=== PATIENT | male | born 1935 | race Caucasian/White ===

== ENCOUNTER → 2016-11-05 | Outpatient (CLI) | payer OTHER ==
[~2016-11-05] MED LIST: CRG625 PO; LPT40 PO; LSN25 PO; MECL1TAB40 PO; PRLSR20 PO; XRL10 PO
[2016-11-05 16:36] LABS: INR 2.5 (0.9-1.1); PROTHROMBIN TIME (PATIENT) 27.7 SECONDS (9.0-12.0)
== END | disposition home or self-care (01) ==
LOC: C.LABSPEC 15:55
PROVIDERS: ATTEND Internal Medicine
DX: I48.91 Unspecified atrial fibrillation (principal); Z79.01 Long term (current) use of anticoagulants

== ENCOUNTER → 2016-12-11 | Outpatient (CLI) | payer OTHER ==
[2016-12-11 15:22] LABS: INR 2.6 (0.9-1.1); PROTHROMBIN TIME (PATIENT) 28.5 SECONDS (9.0-12.0)
== END | disposition home or self-care (01) ==
LOC: C.LABSPEC 14:53
PROVIDERS: ATTEND Internal Medicine
DX: I48.91 Unspecified atrial fibrillation (principal); Z79.01 Long term (current) use of anticoagulants; Z51.81 Encounter for therapeutic drug level monitoring

== ENCOUNTER → 2017-01-12 | Outpatient (CLI) | payer OTHER ==
[2017-01-12 16:14] LABS: INR 1.9 (0.9-1.1)
== END | disposition home or self-care (01) ==
LOC: C.LABSPEC 14:47
PROVIDERS: ATTEND Internal Medicine
DX: Z79.01 Long term (current) use of anticoagulants (principal); I48.91 Unspecified atrial fibrillation

== ENCOUNTER → 2017-02-16 | Outpatient (CLI) | payer OTHER ==
[2017-02-16 12:47] LABS: INR 2.2 (0.9-1.1); PROTHROMBIN TIME (PATIENT) 24.3 SECONDS (9.0-12.0)
== END | disposition home or self-care (01) ==
LOC: C.LABSPEC 12:04
PROVIDERS: ATTEND Internal Medicine
DX: I48.91 Unspecified atrial fibrillation (principal); Z79.01 Long term (current) use of anticoagulants

== ENCOUNTER → 2017-03-25 | Outpatient (CLI) | payer OTHER ==
[2017-03-25 13:43] LABS: INR 2.1 (0.9-1.1); PROTHROMBIN TIME (PATIENT) 23.5 SECONDS (9.0-12.0)
== END | disposition home or self-care (01) ==
LOC: C.LABSPEC 12:17
PROVIDERS: ATTEND Internal Medicine
DX: I48.91 Unspecified atrial fibrillation (principal); Z79.01 Long term (current) use of anticoagulants

== ENCOUNTER → 2017-03-27 | Outpatient (CLI) | payer OTHER ==
[~2017-03-27] MED LIST changes: +REGADENOSON 0.4 MG/5 ML SYR ONE
--- NOTE | 2017-03-28 01:04 | MYOCARDIAL PERFUSION SCAN ---
ONE-DAY NUCLEAR MEDICINE TECHNETIUM-99M CARDIOLITE MYOCARDIAL PERFUSION SCAN CLINICAL HISTORY: This stress test is being performed because of an exertional chest pain syndrome with dyspnea. The patient has a baseline left bundle branch block. COMPARISON: None. TECHNIQUE: For the stress portion of the study, 32.7 mCi of Technetium 99 m Cardiolite IV was injected at 1:20 pm on 03/27/2017. 30 minutes following the injection, imaging of the heart was performed in multiple projection. For the rest portion of the study, 10 mCi of Technetium 99 m Cardiolite was injected IV at 11:45 am. One hour following the injection, imaging of the heart was performed in the same projections. For the stress portion of the study, 0.4 mg of Lexiscan was injected intravenously as per protocol. The patient did not experience chest pain or shortness of breath. There were no EKG changes. Following the study, the patient was hemodynamically stable without complaints. FINDINGS: The short axis, vertical long axis, and horizontal long axis images were reviewed in detail. There is a small defect noted in the proximal, mid inferior wall present at both stress and rest. However, this area demonstrates normal systolic function with the gated images, and the rotating images suggest diaphragmatic attenuation. There is no evidence of myocardial ischemia. The left ventricle demonstrates normal systolic function without segmental wall motion abnormalities. An estimated left ventricular ejection fraction is 64%. CONCLUSIONS: 1. No scintigraphic evidence of a prior myocardial infarction or stress-induced myocardial ischemia. 2. No Lexiscan-induced chest pain. 3. No Lexiscan-induced EKG warp changer the baseline abnormality. 4. Normal left ventricular systolic function without segmental wall motion abnormalities. An estimated left ventricular ejection fraction is 64%.
== END | disposition home or self-care (01) ==
LOC: C.NUCL 10:49
PROVIDERS: ATTEND Internal Medicine
DX: R07.9 Chest pain, unspecified (principal); R06.00 Dyspnea, unspecified

== ENCOUNTER → 2017-05-14 | Outpatient (CLI) | payer OTHER ==
[~2017-05-14] MED LIST changes: -REGADENOSON 0.4 MG/5 ML SYR ONE
[2017-05-14 12:27] LABS: INR 1.8 (0.9-1.1); PROTHROMBIN TIME (PATIENT) 19.2 SECONDS (9.0-12.0)
== END ==
LOC: C.LABSPEC 12:02
PROVIDERS: ATTEND Internal Medicine
DX: I48.91 Unspecified atrial fibrillation (principal); Z79.01 Long term (current) use of anticoagulants; N39.0 Urinary tract infection, site not specified

== ENCOUNTER → 2017-06-08 | Outpatient (CLI) | payer OTHER ==
[2017-06-08 12:54] LABS: INR 2.6 (0.9-1.1); PROTHROMBIN TIME (PATIENT) 28.5 SECONDS (9.0-12.0)
== END | disposition home or self-care (01) ==
LOC: C.LABSPEC 12:09
PROVIDERS: ATTEND Internal Medicine
DX: I48.91 Unspecified atrial fibrillation (principal); Z79.01 Long term (current) use of anticoagulants

== ENCOUNTER → 2017-07-02 | Outpatient (CLI) | payer OTHER ==
[2017-07-02 13:41] LABS: INR 2.1 (0.9-1.1); PROTHROMBIN TIME (PATIENT) 23.7 SECONDS (9.0-12.0)
== END | disposition home or self-care (01) ==
LOC: C.LABSPEC 12:49
PROVIDERS: ATTEND Internal Medicine
DX: I48.91 Unspecified atrial fibrillation (principal); Z51.81 Encounter for therapeutic drug level monitoring; Z79.01 Long term (current) use of anticoagulants

== ENCOUNTER → 2017-07-21 | Outpatient (CLI) | payer OTHER | END | disposition home or self-care (01) | LOC: C.PATHSPEC 13:15 | PROVIDERS: ATTEND Internal Medicine | DX: C44.521 Squamous cell carcinoma of skin of breast (principal) ==

== ENCOUNTER → 2017-07-31 | Outpatient (CLI) | payer OTHER ==
[2017-07-31 14:08] LABS: INR 1.9 (0.9-1.1); PROTHROMBIN TIME (PATIENT) 20.5 SECONDS (9.0-12.0)
== END | disposition home or self-care (01) ==
LOC: C.LABSPEC 12:52
PROVIDERS: ATTEND Internal Medicine
DX: I48.91 Unspecified atrial fibrillation (principal)

== ENCOUNTER → 2017-08-17 | Outpatient (CLI) | payer OTHER ==
[2017-08-17 16:13] LABS: INR 1.7 (0.9-1.1); PROTHROMBIN TIME (PATIENT) 19.1 SECONDS (9.0-12.0)
== END | disposition home or self-care (01) ==
LOC: C.LABSPEC 15:38
PROVIDERS: ATTEND Internal Medicine
DX: Z51.81 Encounter for therapeutic drug level monitoring (principal); Z79.01 Long term (current) use of anticoagulants; I48.91 Unspecified atrial fibrillation

== ENCOUNTER → 2017-09-02 | Outpatient (CLI) | payer OTHER ==
[2017-09-02 13:13] LABS: INR 3.5 (0.9-1.1); PROTHROMBIN TIME (PATIENT) 39.6 SECONDS (9.0-12.0)
== END | disposition home or self-care (01) ==
LOC: C.LABSPEC 12:15
PROVIDERS: ATTEND Internal Medicine
DX: Z51.81 Encounter for therapeutic drug level monitoring (principal); Z79.01 Long term (current) use of anticoagulants; I48.91 Unspecified atrial fibrillation

== ENCOUNTER → 2017-09-16 | Outpatient (CLI) | payer OTHER ==
[2017-09-16 13:32] LABS: INR 2.9 (0.9-1.1); PROTHROMBIN TIME (PATIENT) 32.7 SECONDS (9.0-12.0)
== END | disposition home or self-care (01) ==
LOC: C.LABSPEC 12:41
PROVIDERS: ATTEND Internal Medicine
DX: I48.91 Unspecified atrial fibrillation (principal); Z79.01 Long term (current) use of anticoagulants

== ENCOUNTER → 2017-11-03 | Outpatient (CLI) | payer OTHER ==
[2017-11-03 14:09] LABS: INR 3.8 (0.9-1.1)
== END | disposition home or self-care (01) ==
LOC: C.LABSPEC 12:33
PROVIDERS: ATTEND Internal Medicine
DX: I48.91 Unspecified atrial fibrillation (principal); Z51.81 Encounter for therapeutic drug level monitoring; Z79.01 Long term (current) use of anticoagulants

== ENCOUNTER → 2017-11-13 | Outpatient (CLI) | payer OTHER ==
[2017-11-13 15:16] LABS: INR 2.6 (0.9-1.1)
== END | disposition home or self-care (01) ==
LOC: C.LABSPEC 14:39
PROVIDERS: ATTEND Internal Medicine
DX: I48.91 Unspecified atrial fibrillation (principal); Z51.81 Encounter for therapeutic drug level monitoring; Z79.01 Long term (current) use of anticoagulants

== ENCOUNTER → 2017-12-14 | Outpatient (CLI) | payer OTHER ==
[2017-12-14 14:06] LABS: INR 1.9 (0.9-1.1)
== END | disposition home or self-care (01) ==
LOC: C.LABSPEC 12:51
PROVIDERS: ATTEND Internal Medicine
DX: I48.91 Unspecified atrial fibrillation (principal); Z51.81 Encounter for therapeutic drug level monitoring; Z79.01 Long term (current) use of anticoagulants

== ENCOUNTER → 2018-01-12 | Outpatient (CLI) | payer OTHER ==
[2018-01-12 13:47] LABS: INR 2.6 (0.9-1.1)
[2018-01-12 14:45] LABS: BLOOD UREA NITROGEN 25 mg/dl (7-18); CREATININE 1.25 mg/dl (0.60-1.40); GLUCOSE 100 mg/dl (70-99)
[2018-01-12 14:46] LABS: ALT/SGPT 23 U/L (12-78); CALCIUM 8.6 mg/dl (8.5-10.1); CARBON DIOXIDE 26 mmol/L (21-32); POTASSIUM 3.9 mmol/L (3.5-5.1); SODIUM 136 mmol/L (136-145)
[2018-01-12 14:48] LABS: ALKALINE PHOSPHATASE 82 U/L (45-117); AST/SGOT 18 U/L (15-37); TOTAL PROTEIN 7.4 gm/dl (6.4-8.2)
== END | disposition home or self-care (01) ==
LOC: C.LABSPEC 12:41
PROVIDERS: ATTEND Internal Medicine
DX: Z51.81 Encounter for therapeutic drug level monitoring (principal); Z79.01 Long term (current) use of anticoagulants; I48.91 Unspecified atrial fibrillation

== ENCOUNTER → 2018-02-03 | Outpatient (CLI) | payer OTHER ==
[2018-02-03 17:22] LABS: INR 2.3 (0.9-1.1)
== END | disposition home or self-care (01) ==
LOC: C.LABSPEC 16:29
PROVIDERS: ATTEND Internal Medicine
DX: Z51.81 Encounter for therapeutic drug level monitoring (principal); I48.91 Unspecified atrial fibrillation; Z79.01 Long term (current) use of anticoagulants

== ENCOUNTER → 2018-03-15 | Outpatient (CLI) | payer OTHER ==
[2018-03-15 14:59] LABS: INR 3.3 (0.9-1.1)
== END | disposition home or self-care (01) ==
LOC: C.LABSPEC 13:35
PROVIDERS: ATTEND Internal Medicine
DX: I48.91 Unspecified atrial fibrillation (principal); Z79.01 Long term (current) use of anticoagulants

== ENCOUNTER 2018-03-18 19:32 | Emergency (ER) | payer OTHER ==
[~2018-03-18] VITALS: Ht 170.2 cm; Wt 73.4 kg
[2018-03-18 19:37] VITALS: TEMP 36.8; Ht 170.2 cm; Wt 73.4 kg
[2018-03-18] MEDS ORDERED: LIDOCAINE/EPINEPHRINE 1% 20 ML VIAL INFIL STA (19:45)
--- NOTE | 2018-03-18 20:23 | EMERGENCY ROOM VISIT NOTE ---
ED Visit Note First contact with patient: 19:40 I have seen and examined this patient with Ajit Mcnamara and generally agree with the treatment plan as discussed. Problem List Medical Problems: (1) Heart murmur Status: Chronic (2) History of echocardiogram Status: Chronic (3) Low-grade follicular lymphoma Status: Chronic (4) Sleep apnea Status: Chronic (5) Vertigo Status: Chronic Surgical Problems: (1) History of cholecystectomy Status: Resolved (2) History of shoulder surgery Status: Resolved Current/Historical Medications Scheduled Atorvastatin (Atorvastatin Calcium), 40 MG PO QAM Carvedilol (Carvedilol), 6.25 MG PO BID Lisinopril (Lisinopril), 2.5 MG PO QAM Omeprazole (Prilosec), 20 MG PO DAILY Rivaroxaban (Xarelto), 20 MG PO DAILYBD Scheduled PRN Meclizine Hcl (Meclizine Hcl), 12.5 MG PO TID PRN for DIZZINESS Allergies Coded Allergies: Codeine (Verified Allergy, Unknown, UNKNOWN, 04/07/14) Vital Signs Date Time Temp Pulse Resp B/P (MAP) Pulse Ox O2 Delivery O2 Flow Rate FiO2 03/18/18 19:37 36.8 81 18 133/86 97 Room Air Departure Information Referrals Jose C Del Rosario M.D. (PCP) Patient Instructions My [facility]
--- NOTE | 2018-03-18 20:29 | DIAGNOSTIC IMAGING REPORT ---
HEAD CT NONCONTRAST CT DOSE: 614.27 mGy.cm HISTORY: Head injury, scalp laceration, anticoagulated TECHNIQUE: Multiaxial CT images of the head were performed without the use of intravenous contrast. Automated exposure control was utilized for this study. A dose lowering technique was utilized adhering to the principles of ALARA. Comparison: Head CT 10/03/2013. Findings: The paranasal sinuses and mastoid air cells are clear. The calvarium and skull base are intact. There is no mass, hematoma, midline shift, acute infarct. White matter hypodensity is nonspecific but suggestive of microvascular ischemic change. The ventricles and sulci demonstrate mild age-related involutional changes. Impression: No acute intracranial abnormality. Electronically signed by: Jac Tena M.D. 03/18/2018 8:28 PM Dictated Date/Time: 03/18/2018 8:23 PM
[2018-03-18] MEDS ORDERED: LISI-729 PO (20:41)
[2018-03-18] MEDS ORDERED: CMD4 PO (20:41)
[2018-03-18] MEDS ORDERED: TAMS0.4C38 PO (20:41)
--- NOTE | 2018-03-18 21:02 | EMERGENCY ROOM VISIT NOTE ---
ED Visit Note First contact with patient: 19:40 Chief Complaint: "Gash and head". History of Present Illness: This patient is a 82-year-old male who presents to the Emergency Department for evaluation of their scalp laceration. Patient sustained the laceration while riding a lawnmower going around the house noting a snake was on the house. They report a moderate amount of bleeding initially. They report no loss of consciousness. They deny any headache, visual disturbance , nausea, vomiting, or neck pain. Patient rates his current discomfort as a 2/ 10. Patient's Tetanus status is believed to be currently up-to-date. Medications: As noted below Allergies: Codeine PMH: Noncontributory SHx: Patient lives locally ROS: All pertinent positive and negative review of systems are appropriately documented in the History of Present Illness. Physical Exam: VITAL SIGNS - Vital signs and nursing notes were reviewed. Stable GENERAL -82-year-old male appearing his stated age. Communicates well with provider and answers questions appropriately. SKIN - There is a 4 cm laceration noted superiormost portion of the patient's scalp with an area of skin avulsion. The edges gape apart with traction and without traction. There is minimal active bleeding appreciated. No deep structures including vessels, musculature, or bony structures are appreciated. HEAD - Normocephalic. No Botello's Sign or Raccoon's Eyes. No depressed skull fractures palpable. EYES - PERRL with EOMI bilaterally. Without subconjunctival hemorrhage. Palpebral conjunctiva pink and moist with no injection. EARS - No deformities of external structures noted on gross examination bilaterally. No hemotympanum present. No tympanic perforation noted. NOSE - Midline and without cyanosis. No epistaxis or clear watery discharge noted. Septum midline without deviation. No septal hematoma noted. No overlying ecchymosis noted. MOUTH/OROPHARYNX - Without perioral cyanosis. Tongue midline with equal elevation of palate bilaterally. No blood noted in the oropharynx. No tonsillar hypertrophy, erythema, or exudates noted. No dental fractures noted. NECK - FROM assessed. No tenderness to palpation over the cervical spinous processes. No cervical paraspinal muscle tenderness noted. LUNGS - Chest wall symmetric without accessory muscle use, intercostals retractions, or central cyanosis. Normal vesicular breath sounds CTA B/L. No wheezes, rales, or rhonchi appreciated. CARDIAC - RRR with S1/S2. No murmur, rubs, or gallops appreciated. EXTREMITIES - No gross deformities noted of the extremities.+5/5 strength noted in UE/LE bilaterally. NEUROLOGIC - Cranial nerves II through XII grossly intact. Sensory intact to light touch throughout. PSYCH - A&O and cooperates fully with examiner. Pt is very pleasant and interacts well with examiner. IMAGING: HEAD CT NONCONTRAST CT DOSE: 614.27 mGy.cm HISTORY: Head injury, scalp laceration, anticoagulated TECHNIQUE: Multiaxial CT images of the head were performed without the use of intravenous contrast. Automated exposure control was utilized for this study. A dose lowering technique was utilized adhering to the principles of ALARA. Comparison: Head CT 10/03/2013. Findings: The paranasal sinuses and mastoid air cells are clear. The calvarium and skull base are intact. There is no mass, hematoma, midline shift, acute infarct. White matter hypodensity is nonspecific but suggestive of microvascular ischemic change. The ventricles and sulci demonstrate mild age-related involutional changes. Impression: No acute intracranial abnormality. Electronically signed by: Jac Tena M.D. 03/18/2018 8:28 PM Dictated Date/Time: 03/18/2018 8:23 PM ED Course: Patient was seen and evaluated by myself and the attending physician. Patient had no focal neurological deficits. Patient's exam is otherwise unremarkable. Patient reports no headaches, visual disturbances, nausea, vomiting, or over- lethargy. Because of his anticoagulated state, and mechanism of injury I will recommend CT scan of the patient's head. Results as above. This was negative. GCS 15. Risks and benefits of performing primary wound closure versus no repair were discussed with the patient who verbalizes understanding. Verbal consent was obtained prior to performing the procedure. 3 cc of 1% buffered lidocaine with epinephrine was used to anesthetize the scalp laceration. The wound was cleansed and prepped in the typical sterile fashion utilizing normal saline and Betadine. The wound was sterilely draped. Once proper anesthetization was established, the wound was further examined and demonstrated no deep involvement. The wound was copiously irrigated with normal saline and Betadine. The wound was closed using 5 simple, 5-0 sutures with the wound edges being well approximated at the anterior most portion of the wound however there was still a gaping wound at the inferior portion secondary to loss of skin with the injury. Patient tolerated the procedure well. No complications were met. The wound was cleansed and dressed with a Bacitracin dressing. Patient educated on worrisome symptoms for return visit to the Emergency Department. Patient discharged to home in good condition. In the evaluation and treatment of this patient, the following differential diagnoses were considered: Concussion, Contrecoup Injury, Brain Tumor, Depression, Encephalitis, Hypothyroidism, Meningitis, CVA, TIA, Migraine, Cluster Headache, Intracranial Abnormality, Intracranial Hemorrhage, Subdural Hematoma, Subarachnoid Hemorrhage, Hydrocephalus. Problem List Medical Problems: (1) Heart murmur Status: Chronic (2) History of echocardiogram Status: Chronic (3) Low-grade follicular lymphoma Status: Chronic (4) Sleep apnea Status: Chronic (5) Vertigo Status: Chronic Surgical Problems: (1) History of cholecystectomy Status: Resolved (2) History of shoulder surgery Status: Resolved Current/Historical Medications Scheduled Lisinopril (Zestril), 5 MG PO DAILY Omeprazole (Prilosec), 20 MG PO DAILY Tamsulosin Hcl (Flomax), 0.4 MG PO DAILY Warfarin Sod (Coumadin), 4 MG PO DAILY Allergies Coded Allergies: Codeine (Verified Allergy, Unknown, UNKNOWN, 03/18/18) Vital Signs Date Time Temp Pulse Resp B/P (MAP) Pulse Ox O2 Delivery O2 Flow Rate FiO2 03/18/18 21:22 71 131/81 97 03/18/18 19:37 36.8 81 18 133/86 97 Room Air Departure Information Impression Primary Impression: Laceration Dispostion Home / Self-Care Condition GOOD Referrals Jose C Del Rosario M.D. (PCP) Patient Instructions My [facility] Additional Instructions Discharge Instructions: You have received 5 sutures on your scalp. These sutures are NOT dissolvable and WILL need to be removed by a health care provider in 10 days. You can return to the Emergency Department or contact your Primary Care Provider to have these simin removed. Proper wound care is essential for adequate wound healing and infection prevention. You can shower and clean the wound with soap and water. Do scour over the wound, pat dry with a towel. Do not submerse the wound until the simin have been removed. You can use an antibiotic ointment with a dressing over the wound for the next 3-4 days. After this time you may leave the wound dry and open to the air. If crust develops over the wound you can use a Q-tip to apply a 1:1 peroxide:water solution to clean the wound. Look for signs of infection of the wound including: increased pain, swelling, foul discharge, streaking, or increased temperature. If any of these are noticed you should return to the Emergency Department for further assessment and treatment. As with any laceration you may have received nerve damage to the surrounding tissues. This damage may or may not be permanent. For pain control, you can use the following [id number] medicines (if >12 yo): - Regular strength (325mg/tab) Tylenol (acetaminophen) 2 tabs every 4-6 hours as needed. Do not exceed 12 tablets in a 24 hour period. Avoid taking more than 3 grams (3000 mg) of Tylenol per day. This includes any other sources of acetaminophen you may take on a regular basis. - Regular strength (200 mg/tab) Advil (ibuprofen) 1-2 tabs every 4-6 hours as needed. Do not exceed a dose of 3200 mg per day. Return to the emergency department if your symptoms worsen despite treatment course outlined above.
[2018-03-18 21:22] VITALS: BP 131/81; PULSE 71; O2SAT 97
== END 2018-03-18 21:21 | disposition home or self-care (01) ==
LOC: C.EDB 19:33 → C.EDD 21:21
DX: S01.01XA Laceration without foreign body of scalp, initial encounter (principal); X58.XXXA Exposure to other specified factors, initial encounter; Y93.H9 Activity, other involving exterior property and land maintenance, building and construction; Z79.02 Long term (current) use of antithrombotics/antiplatelets; Z88.6 Allergy status to analgesic agent

== ENCOUNTER → 2018-06-15 | Outpatient (CLI) | payer OTHER ==
[~2018-06-15] MED LIST changes: +CMD4 PO; -CRG625 PO; +LISI-729 PO; -LPT40 PO; -LSN25 PO; -MECL1TAB40 PO; +TAMS0.4C38 PO; -XRL10 PO
[2018-06-15 18:45] LABS: INR 2.6 (0.9-1.1)
== END | disposition home or self-care (01) ==
LOC: C.LABSPEC 17:47
PROVIDERS: ATTEND Internal Medicine
DX: I48.91 Unspecified atrial fibrillation (principal); Z79.01 Long term (current) use of anticoagulants

== ENCOUNTER 2019-06-03 15:58 | Inpatient (IN) ==
[2019-06-03] MEDS ORDERED: SODIUM CHLORIDE 0.9% 1000ML 1,000 ML IV ONE (17:11)
[2019-06-03] MEDS ORDERED: LEVOFLOXACIN/D5W 750 MG/150 ML BAG IV STA (17:31)
--- NOTE | 2019-06-03 17:59 | XRay Report ---
SINGLE VIEW CHEST CLINICAL HISTORY: Atypical chest pain. FINDINGS: An AP, portable, upright chest radiograph is compared to study dated 04/07/2014 and correlat ed with PET/CT dated 03/03/2016. The examination is degraded by portable technique and apical lordotic positioning. The heart is enlarged and there is atherosclerotic calcification of the thoracic aorta. The pulmonary vasculature is noncongested. There is bibasilar airspace consolidation, right greater than left. Small layering pleural effusions are noted. No pneumothorax is seen. The skeletal structur es are osteopenic. The bony thorax is grossly intact. Degenerative change is seen throughout the thor acic spine. IMPRESSION: 1. Cardiomegaly without radiographic evidence of congestive failure. 2. There is bibasilar airspace consolidation, typical in appearance for pneumonia/aspiration pneumoni tis. Clinical correlation will be required and radiographic follow-up to resolution is recommended. 3. There are small pleural effusions. Electronically signed by: Reza Sotelo M.D. 06/03/2019 5:58 PM
[2019-06-03 18:14] LABS: Basophils # (auto) 0.01 K/uL (0-0.2); Basophils % (auto) 0.1 %; Eosinophils # (auto) 0.02 K/uL (0-0.5); Eosinophils % (auto) 0.2 %; Hematocrit (blood only) 34.4 % (42-52); Hemoglobin 11.9 g/dL (14.0-18.0); Immature Granulocytes # (auto) 0.03 K/uL (0.00-0.02); Immature Granulocytes % (auto) 0.4 %; Lymphocytes # (auto) 0.58 K/uL (1.2-3.4); Lymphocytes % (auto) 6.8 %; Mean Corpuscular Hemoglobin 29.2 pg (25-34); Mean Corpuscular Hgb Conc 34.6 g/dL (32-36); Mean Corpuscular Volume 84.5 fL (80-100); Mean Platelet Volume 9.3 fL (7.4-10.4); Monocytes # (auto) 0.61 K/uL (0.11-0.59); Monocytes % (auto) 7.2 %; Neutrophils # (auto) 7.28 K/uL (1.4-6.5); Neutrophils % (auto) 85.3 %; Platelet Count 274 K/uL (130-400); RDW Coefficient of Variation 12.7 % (11.5-14.5); RDW Standard Deviation 39.1 fL (36.4-46.3); Red Blood Count 4.07 M/uL (4.7-6.1); White Blood Count 8.53 K/uL (4.8-10.8)
[2019-06-03 18:34] LABS: Alanine Aminotransferase 48 U/L (12-78); Albumin Level 2.3 gm/dl (3.4-5.0); Aspartate Aminotransferase 36 U/L (15-37); BUN Creatinine Ratio 21.5 (10-20); Blood Urea Nitrogen 23 mg/dl (7-18); Calcium 7.5 mg/dl (8.5-10.1); Carbon Dioxide 22 mmol/L (21-32); Chloride 111 mmol/L (98-107); Creatinine Clr Calc Pharmacy 48.9 ml/min; Est GFR (African American) 72.9; Est GFR (Non-African American) 62.9; Glucose 108 mg/dl (70-99); Lipase 54 U/L (73-393); Potassium 4.4 mmol/L (3.5-5.1); Sodium 140 mmol/L (136-145)
[2019-06-03 18:39] LABS: Albumin Globulin Ratio 0.7 (0.9-2); Alkaline Phosphatase 83 U/L (45-117); Bilirubin,Total 1.1 mg/dl (0.2-1); Globulin 3.5 gm/dl (2.5-4.0); Total Protein 5.8 gm/dl (6.4-8.2); Troponin I < 0.015 ng/ml (0-0.045)
[2019-06-03] MEDS ORDERED: ACETAMINOPHEN 325 MG TAB PO PRN (20:39)
[2019-06-03] MEDS ORDERED: ALUMINUM/MAGNESIUM SUSP 30 ML UDC PO PRN (20:39)
[2019-06-03] MEDS ORDERED: WARFARIN SOD 4 MG TAB PO SCH (20:39)
[2019-06-03] MEDS ORDERED: MAGNESIUM HYDROXIDE SUSP 30 ML UDC PO PRN (20:39)
[2019-06-03] MEDS ORDERED: NITROGLYCERIN SL 0.4 MG/TAB TAB SL PRN (20:39)
[2019-06-03] MEDS ORDERED: POLYETHYLENE (MIRALAX) 17 GM PACK PO PRN (20:39)
[2019-06-03] MEDS ORDERED: ZOLPIDEM TARTRATE 5 MG TAB PO PRN (20:39)
[2019-06-03] MEDS: SODIUM CHLORIDE 0.9% 1000ML 1,000 ML IV SCH (21:42)
--- NOTE | 2019-06-03 21:59 | Emergency Department Note ---
Entered by Huma Fregoso acting as a scribe for Gerald Silva DO History of Present Illness General Chief complaint: Weakness Source: patient History of Present Illness Onset (ago): week(s) 2 Location: chest (shortness of breath) Pain Consistency: + other (worsening) Exacerbated By: + other (mowing lawn) Associated symptoms: + denies other symptoms (neck pain), + cough (mild), + loss of appetite, + weakness and + other (abdominal discomfort); no headaches The patient is a 83 year-old white M w/ PMHx of A Fib who presents to the ED w/ CC of worsening shortness of breath beginning 2 weeks ago. The patient states that he was mowing his lawn today. He notes that this caused him to experience worsened shortness of breath and weakness. The patients states that she found the patient passed out on the ground. EMS adds that the patient had a second episode of syncope when they arrived at the scene. The patient notes that he has also been experiencing mild coughing and abdominal discomfort since 2 weeks ago. He states that his weakness is no worse on one side of his body. He adds that he has also experienced a loss of appetite for the past two weeks. He denies that he is currently experiencing headache and neck pain. He also denies a history of smoking. Home Medications Home Medications Medication Instructions Recorded Confirmed Type diltiazem HCl 240 mg PO DAILY 06/03/19 06/03/19 History levofloxacin 500 mg PO DAILY 06/03/19 06/03/19 History lisinopril 5 mg PO DAILY 06/03/19 06/03/19 History omeprazole 20 mg PO DAILY 06/03/19 06/03/19 History tamsulosin 0.4 mg PO DAILY 06/03/19 06/03/19 History warfarin 4 mg PO UD 06/03/19 06/03/19 History Allergies Allergy/AdvReac Type Severity Reaction Status Date / Time codeine Allergy Unknown UNKNOWN Verified 06/03/19 17:36 Past Med/Surg History Medical History Vertigo (Chronic) Sleep apnea (Chronic) History of echocardiogram (Chronic) Heart murmur (Chronic) Family History Other No significant family history Social History Feels Safe at Home: Yes Smoking Status: Never smoker Review of Systems See HPI for pertinent positives & negatives. and A total of 10 systems reviewed and were otherwise negative Physical Exam Vital Signs Vital Signs - 24 hr 06/03/19 16:03 06/03/19 16:08 06/03/19 16:14 Temperature 36.5 C Temperature Source Oral Sepsis Recent Fever Within 48 Hours No Sepsis Action Taken by Nursing No Action Required Pulse Rate 72 75 70 Pulse Rate from SpO2 Sensor 72 70 Pulse Rhythm Regular Pulse Strength Normal Respiratory Rate 31 H 20 31 H Respiratory Depth Normal Blood Pressure 121/60 121/60 Blood Pressure Mean 80 80 Blood Pressure Position Lying Pulse Oximetry 93 94 93 Oxygen Delivery Method Nasal Cannula Oxygen Flow Rate 4 06/03/19 16:30 06/03/19 17:00 06/03/19 17:28 Temperature Temperature Source Sepsis Recent Fever Within 48 Hours Sepsis Action Taken by Nursing Pulse Rate 68 69 Pulse Rate from SpO2 Sensor 68 70 Pulse Rhythm Pulse Strength Respiratory Rate 31 H 28 H Respiratory Depth Blood Pressure Blood Pressure Mean Blood Pressure Position Pulse Oximetry 93 93 92 Oxygen Delivery Method Nasal Cannula Oxygen Flow Rate 06/03/19 17:30 06/03/19 17:32 06/03/19 18:00 Temperature Temperature Source Sepsis Recent Fever Within 48 Hours Sepsis Action Taken by Nursing Pulse Rate 71 72 75 Pulse Rate from SpO2 Sensor 71 71 75 Pulse Rhythm Pulse Strength Respiratory Rate 32 H 35 H 27 H Respiratory Depth Blood Pressure 112/64 114/59 L Blood Pressure Mean 80 77 Blood Pressure Position Pulse Oximetry 93 92 93 Oxygen Delivery Method Oxygen Flow Rate 06/03/19 18:30 06/03/19 19:00 06/03/19 19:30 Temperature Temperature Source Sepsis Recent Fever Within 48 Hours Sepsis Action Taken by Nursing Pulse Rate 72 75 73 Pulse Rate from SpO2 Sensor 72 75 73 Pulse Rhythm Pulse Strength Respiratory Rate 30 H 31 H 29 H Respiratory Depth Blood Pressure 103/57 L 113/63 102/60 Blood Pressure Mean 72 79 74 Blood Pressure Position Pulse Oximetry 93 93 93 Oxygen Delivery Method Oxygen Flow Rate GENERAL: Sitting up in bed, alert, slightly ill-appearing, non-toxic EYE EXAM: normal conjunctiva, PERRL and EOM's grossly intact OROPHARYNX: no exudate, no erythema, lips, buccal mucosa, and tongue normal and mucous membranes are moist NECK: supple, no nuchal rigidity, no adenopathy, non-tender LUNGS: Clear to auscultation. Normal chest wall mechanics HEART: no murmurs, S1 normal and S2 normal ABDOMEN: abdomen soft, non-tender, normo-active bowel sounds, no masses, no rebound or guarding. Scar on RUQ. BACK: Back is symmetrical on inspection and there is no deformity, no midline tenderness, no CVA tenderness. SKIN: no rashes and no bruising UPPER EXTREMITIES: upper extremities are grossly normal. LOWER EXTREMITIES: No pitting edema. Claves equal bilaterally. NEURO EXAM: Normal sensorium, cranial nerves II-XII grossly intact, normal speech, no gross weakness of arms, no gross weakness of legs. Course ED COURSE: Vital signs were reviewed and showed normal vitals. The patients medical record was reviewed The above diagnostic studies were performed and reviewed. ED treatments and interventions as stated above. 1706: The patient was evaluated in room C2. A complete history and physical examination was performed. 1847: I reviewed the patient's case with Dr. Sommers, [facility] Hospitalist. He will evaluate the patient for further management. 1850: Upon reevaluation, the patient is not doing any better. I discussed my findings with the patient and he understands and agrees with the treatment plan. Based on the patients age, coexisting illnesses, exam and lab findings the decision to treat as an inpatient was made. The patient remained stable while under my care. The patient will be evaluated for further management. Consultations Consultation #1: I reviewed the patient's case with Dr. Sommers, [facility] Hospitalist. He will evaluate the patient for further management. Time: 18:47 Administered Medications Sodium Chloride (Nss 1000ml) 1,000 mls @ 80 mls/hr IV .[id number] SHARRI Stop: 07/03/19 20:38 Last Admin: 06/03/19 21:42 Dose: 80 mls/hr Documented by: [id number] Discontinued Medications Sodium Chloride (Nss 1000ml) 1,000 mls @ 999 mls/hr IV .[id number] ONE Stop: 06/03/19 18:11 Last Infusion: 06/03/19 19:02 Dose: 0 mls/hr Documented by: [id number] Admin: 06/03/19 17:39 Dose: 999 mls/hr Documented by: [id number] Levofloxacin/Dextrose (Levaquin/D5w) 750 mg in 150 mls @ 100 mls/hr IV Q24H STA Stop: 06/03/19 19:00 Last Infusion: 08/09/19 19:51 Dose: 0 mls/hr Documented by: [id number] Admin: 06/03/19 18:17 Dose: 100 mls/hr Documented by: [id number] Medical Decision Making Differential Diagnosis Differential diagnoses includes but is not limited to pneumonia, bronchitis, COPD/Asthma exacerbation, pneumothorax, pulmonary embolism, congestive heart failure, acute coronary syndrome Medical Records Attestation: I reviewed the patient's medical records. Home Medications Current Medication List: was personally reviewed by me Laboratory Data Attestation: I reviewed the patient's lab results. Result diagrams: 06/03/19 18:01 06/03/19 18:01 Lab Results 06/03/19 06/03/19 Range/Units 18: 18:01 WBC 8.53 (4.8-10.8) K/uL RBC 4.07 L (4.7-6.1) M/uL Hgb 11.9 L (14.0-18.0) g/dL Hct 34.4 L (42-52) % MCV 84.5 (80-100) fL MCH 29.2 (25-34) pg MCHC 34.6 (32-36) g/dL RDW Std Deviation 39.1 (36.4-46.3) fL RDW Coeff of Hermelinda 12.7 (11.5-14.5) % Plt Count 274 (130-400) K/uL MPV 9.3 (7.4-10.4) fL Immature Gran % (Auto) 0.4 % Neut % (Auto) 85.3 % Lymph % (Auto) 6.8 % Sumner % (Auto) 7.2 % Eos % (Auto) 0.2 % Baso % (Auto) 0.1 % Immature Gran # (Auto) 0.03 H (0.00-0.02) K/uL Neut # (Auto) 7.28 H (1.4-6.5) K/uL Lymph # (Auto) 0.58 L (1.2-3.4) K/uL Sumner # (Auto) 0.61 H (0.11-0.59) K/uL Eos # (Auto) 0.02 (0-0.5) K/uL Baso # (Auto) 0.01 (0-0.2) K/uL Sodium 140 (136-145) mmol/L Potassium 4.4 (3.5-5.1) mmol/L Chloride 111 H (98-107) mmol/L Carbon Dioxide 22 (21-32) mmol/L Anion Gap 7.0 (3-11) BUN 23 H (7-18) mg/dl Creatinine 1.09 (0.6-1.4) mg/dl Est Cr Clr Drug Dosing 48.9 ml/min Est GFR ( Amer) 72.9 Est GFR (Non-Af Amer) 62.9 BUN/Creatinine Ratio 21.5 H (10-20) Glucose 108 H (70-99) mg/dl Calcium 7.5 L (8.5-10.1) mg/dl Total Bilirubin 1.1 H (0.2-1) mg/dl AST 36 (15-37) U/L ALT 48 (12-78) U/L Alkaline Phosphatase 83 (45-117) U/L Troponin I < 0.015 (0-0.045) ng/ml Total Protein 5.8 L (6.4-8.2) gm/dl Albumin 2.3 L (3.4-5.0) gm/dl Globulin 3.5 (2.5-4.0) gm/dl Albumin/Globulin Ratio 0.7 L (0.9-2) Lipase 54 L (73-393) U/L Imaging Data Radiologist's Impression: Radiology results as stated below per my review and the radiologist's interpretation: SINGLE VIEW CHEST CLINICAL HISTORY: Atypical chest pain. FINDINGS: An AP, portable, upright chest radiograph is compared to study dated 04/07/2014 and correlated with PET/CT dated 03/03/2016. The examination is degraded by portable technique and apical lordotic positioning. The heart is enlarged and there is atherosclerotic calcification of the thoracic aorta. The pulmonary vasculature is noncongested. There is bibasilar airspace consolidation, right greater than left. Small layering pleural effusions are noted. No pneumothorax is seen. The skeletal structures are osteopenic. The bony thorax is grossly intact. Degenerative change is seen throughout the thoracic spine. IMPRESSION: 1. Cardiomegaly without radiographic evidence of congestive failure. 2. There is bibasilar airspace consolidation, typical in appearance for pneumonia/aspiration pneumonitis. Clinical correlation will be required and radiographic follow-up to resolution is recommended. 3. There are small pleural effusions. Electronically signed by: Reza Sotelo M.D. 06/03/2019 5:58 PM Blood Pressure Blood Pressure Findings: Normal blood pressure Blood Pressure Disposition: did not require urgent referral MDM Narrative Patient is an 83-year-old male with increased shortness of breath which is been going over the past 2 weeks associate with congestion and cough. He had a syncopal episode was brought in by EMS. On arrival he is found to be slightly hypoxic at 88 to 91%. IV was established blood work was obtained and showed no significant leukocytosis and a mild anemia. BMP was unremarkable. Bilirubin was slightly elevated 1.1. Troponin was negative. Lipase was unremarkable. Chest x-ray with bilateral pneumonia. Patient was given IV antibiotics and IV fluids. He was updated bedside. Discussed with the hospitalist and patient was admitted for pneumonia associate with hypoxia. Impression & Plan PNA (pneumonia), Syncope, Hypoxia Discharge Plan Visit Data *Final* Discharge Date/Time: 06/03/19 20:07 Chief Complaint: Weakness ED Provider: Gerald Silva Discharge Problem: PNA (pneumonia), Syncope, Hypoxia Patient Disposition: Admitted As Inpatient Discharge Instructions Interventions: ED Discharge Assessment Last Done: 06/03/19 20:07 Discharge Problem: PNA (pneumonia) Qualifiers: Pneumonia type: due to unspecified organism Laterality: bilateral Lung location: lower lobe of lung Qualified Code(s): J18.1 - Lobar pneumonia, unspecified organism Syncope Qualifiers: Syncope type: unspecified Qualified Code(s): R55 - Syncope and collapse The scribe's documentation has been prepared under my direction and personally reviewed by me in its entirety. I confirm that the note above accurately reflects all work, treatment, procedures, and medical decision making performed by me.
--- NOTE | 2019-06-03 22:03 | History & Physical Report ---
Date of Service June 03, 2019 Assessment & Plan (1) PNA (pneumonia): Admit to inpatient on telemetry -Vital signs every 4 hours -Given Levaquin and ceftriaxone in the ER -Continue ceftriaxone and doxycycline and metronidazole for possible aspiration pneumonia -Patient passed dysphagia screen, but would recommend swallowing study with speech therapy -Duo nebs every 4 hours as needed -Prednisone 40 mg p.o. daily for 5 days -CBC CMP, PT/INR daily -Replenish electrolytes as needed -Patient is on warfarin for A. fib with RVR as well DVT prophylaxis -Full code Present on Admission?: Yes (2) Syncope: Most likely due to dehydration. Patient reports that he did not lose consciousness but feels very tired. Present on Admission?: Yes (3) Hypoxia: Patient has respiratory failure due to most likely aspiration pneumonia -Continue supplemental oxygen as needed and keep oxygenation above 92%. -Continue duo nebs every 4 hours as needed for shortness of breath -Continue prednisone 40 mg p.o. daily for 5 days -Continue antibiotics as above -Follow-up blood cultures -Collect sputum cultures Present on Admission?: Yes (4) Sleep apnea: Patient reports having sleep apnea but he does not use CPAP Present on Admission?: Yes (5) Atrial fibrillation with RVR: Stable, continue diltiazem 240 mg p.o. daily, continue lisinopril 5 mg daily. Continue warfarin 4 mg daily and as directed check PT/INR daily and keep it therapeutic INR between 2 and 3. Present on Admission?: Yes History of Present Illness Chief Complaint: Shortness of breath and cough Primary Care Provider: Jose C Velasco MD Patient is a 83 years old white male with past medical history of A. fib's on warfarin,, sleep apnea, presents to the emergency room with a complaint of shortness of breath and cough started 2 weeks ago. Patient states that he was moving his wound today he noted that this caused him to experience worsening shortness of breath and weakness. Patient says that his appetite is decreased. Patient states that patient was found on the ground and he passed out but did not know how long. EMS states stated the patient had a second episode of syncope when they arrived at the scene. Per patient he is mildly coughing and has abdominal discomfort for approximately 2 weeks weakness is worsening from day today. Patient denies fever chills headache chest pain abdominal pain frequency urgency hemoptysis or hematuria. Patient said that he coughs up approximately little bit of slime and it is yellow. Labs were reviewed and showed viral cell of 8.53 hemoglobin 11.9 hematocrit 34.4 platelets of 274, INR- still pending, sodium 140 potassium 4.4 chloride 111 BUN 23 creatinine 1.09 GFR of 48.9 BUN of 23.3. Chest x-rays showed cardiomegaly without radiographic evidence of congestive heart failure. There is bibasilar a space consolidation, typical in appearance for pneumonia/aspiration showing pneumonitis. There are small pleural effusions. Allergies Allergy/AdvReac Type Severity Reaction Status Date / Time codeine Allergy Unknown UNKNOWN Verified 06/03/19 17:36 Home Medications Home Medications Medication Instructions Recorded Confirmed Type diltiazem HCl 240 mg PO DAILY 06/03/19 06/03/19 History levofloxacin 500 mg PO DAILY 06/03/19 06/03/19 History lisinopril 5 mg PO DAILY 06/03/19 06/03/19 History omeprazole 20 mg PO DAILY 06/03/19 06/03/19 History tamsulosin 0.4 mg PO DAILY 06/03/19 06/03/19 History warfarin 4 mg PO UD 06/03/19 06/03/19 History Past Med/Surg History Medical History Vertigo (Chronic) Sleep apnea (Chronic) History of echocardiogram (Chronic) Heart murmur (Chronic) Family History Other No significant family history Social History Preferred Language: Jordanian Communication Ability: Effective Sports Trainer Required: No Beliefs That Will Affect Care: None Current Living Situation: Spouse Current Living Situation Comment: 's name is Poonam Other Information That Helps Us Care for You: No Feels Safe at Home: Yes Safety Concerns: Feels Safe At This Time Smoking Status: Never smoker Do You Dip or Chew Tobacco: No ; Second Hand Exposure: No ; Tobacco Cessation Education Requested by Patient: No Hx Alcohol Use: No Hx Substance Use: No Review of Systems Review of Systems: All systems reviewed & are unremarkable except as noted in HPI & below Respiratory: + cough, + dyspnea and + wheezing Physical Exam Constitutional: WD/WN, vitals as above well developed and + frail appearing Eyes: PERRL, conjunctivae normal, anicteric sclerae ENMT: external ear and nose normal, oropharynx normal Neck: trachea midline, no thyromegaly Respiratory: + dullness to percussion, + hyperresonance to percussion and + cough Auscultation: + crackles, + rales and + wheezes Cardiovascular: Rate/Rhythm: + irregularly irregular Heart Sounds: + murmur Chest (Breasts): normal inspection/palpation of breasts Gastrointestinal (Abdomen): normal bowel sounds, soft, nontender, no hepatosplenomegaly Musculoskeletal: no cyanosis or clubbing, extremities motor strength 5/5 Skin: Pale Neurologic: patellar DTR's 2+ bilat, sensation intact Psychiatric: A+Ox3, euthymic affect Genitourinary: no testicular masses, no penis abnormality Lymphatic: no cervical or axillary lymphadenopathy Results & Data Vital Signs (Past 12 Hours) Vital Signs Temp Pulse Resp BP BP Pulse Ox 06/03/19 21:59 74 06/03/19 20:29 36.5 C 20 136/68 91 06/03/19 20:07 73 19 102/60 93 06/03/19 19:30 73 29 H 102/60 93 06/03/19 19:00 75 31 H 113/63 93 06/03/19 18:30 72 30 H 103/57 L 93 06/03/19 18:00 75 27 H 114/59 L 93 06/03/19 17:32 72 35 H 112/64 92 06/03/19 17:30 71 32 H 93 06/03/19 17:28 92 06/03/19 17:00 69 28 H 93 06/03/19 16:30 68 31 H 93 06/03/19 16:14 70 31 H 93 06/03/19 16:08 36.5 C 75 20 121/60 94 06/03/19 16:03 72 31 H 121/60 93 Code Status & VTE Plan Code Status Full code VTE Prophylaxis Plan VTE Prophylaxis will be ordered: Yes PG Care Time/CCT Total # of Minutes Spent Total Time Spent with Patient: Total time spent is greater than 50% in coordination of care (as documented) at patient's floor/unit and/or counseling patient: (1) PNA (pneumonia) Laterality: bilateral Lung location: lower lobe of lung Pneumonia type: due to unspecified organism Qualified Code(s): J18.1 - Lobar pneumonia, unspecified organism (2) Syncope Syncope type: unspecified Qualified Code(s): R55 - Syncope and collapse
[2019-06-03 22:06] LABS: Prothrombin Time 38.1 Seconds (9.0-12.0)
[2019-06-03 22:16] LABS: INR 4.1 (0.9-1.1)
[2019-06-03] MEDS ORDERED: cefTRIAXone SODIUM 2,000 MG in DEXTROSE 5% 50 ML IV SCH (23:30)
[2019-06-04] MEDS: NITROGLYCERIN 2% OINTMENT 30GM TUBE EXT SCH ×4 (00:57→17:42)
[2019-06-04] MEDS: metroNIDAZOLE 500 MG/100 ML BAG IV SCH ×2 (01:40→08:13)
[2019-06-04 07:36] LABS: Basophils # (auto) 0.01 K/uL (0-0.2); Basophils % (auto) 0.1 %; Eosinophils % (auto) 1.4 %; Hematocrit (blood only) 32.3 % (42-52); Hemoglobin 11.5 g/dL (14.0-18.0); Immature Granulocytes # (auto) 0.04 K/uL (0.00-0.02); Immature Granulocytes % (auto) 0.5 %; Lymphocytes # (auto) 0.77 K/uL (1.2-3.4); Lymphocytes % (auto) 10.6 %; Mean Corpuscular Hgb Conc 35.6 g/dL (32-36); Mean Corpuscular Volume 84.3 fL (80-100); Mean Platelet Volume 8.7 fL (7.4-10.4); Monocytes # (auto) 0.58 K/uL (0.11-0.59); Neutrophils # (auto) 5.79 K/uL (1.4-6.5); Neutrophils % (auto) 79.4 %; Platelet Count 288 K/uL (130-400); RDW Coefficient of Variation 12.8 % (11.5-14.5); RDW Standard Deviation 38.8 fL (36.4-46.3); Red Blood Count 3.83 M/uL (4.7-6.1); White Blood Count 7.29 K/uL (4.8-10.8)
[2019-06-04 07:59] LABS: Prothrombin Time 41.5 Seconds (9.0-12.0)
[2019-06-04 08:01] LABS: Albumin Level 2.3 gm/dl (3.4-5.0); BUN Creatinine Ratio 19.1 (10-20); Creatinine Clr Calc Pharmacy 54.9 ml/min; Est GFR (African American) 83.9; Est GFR (Non-African American) 72.4; INR 4.5 (0.9-1.1); Potassium 3.9 mmol/L (3.5-5.1)
[2019-06-04 08:06] LABS: Albumin Globulin Ratio 0.6 (0.9-2); Bilirubin,Total 0.7 mg/dl (0.2-1); Globulin 3.7 gm/dl (2.5-4.0)
[2019-06-04] MEDS: TAMSULOSIN HCL 0.4 MG CAP PO SCH (08:13)
[2019-06-04] MEDS: LISINOPRIL 5 MG TAB PO SCH (08:13)
[2019-06-04] MEDS: dilTIAZem HCL 240 MG CAPCR PO SCH (08:13)
[2019-06-04] MEDS: PANTOprazole 40 MG TAB PO SCH (08:51)
[2019-06-04] MEDS: SODIUM CHLORIDE 0.9% 1000ML 1,000 ML IV SCH (09:38)
--- NOTE | 2019-06-04 10:42 | Family Medicine Progress Note ---
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 PNA: -CAP vs aspiration -on rocephin and metronidazole - clinically improving, will order speech eval, transition to PO abx - think monotherapy with augmentin BID would be reasonable given clinical improvement and reasonable coverage. -O2 as needed - 2 step tomorrow, may need O2 possibly temporarily -speech eval pending to evaluate for risk of aspiration, continue protonix for now pending speech eval. FEN/GI: heart healthy diet. Hold further fluids - last echo in 2013 showed EF40- 45%. DVT ppx: supratherapeutic INR, on warfarin normally. CODE STATUS: FULL DISPO: Med/tele - ok to DC cardiac monitoring since clinically improving. Other ongoing medical problems: AFIB - currently NSR. No acute issues. Continue rate control home med - diltiazem HTN - ok to restart lisinopril BPH - continue home flomax (2) Syncope: Resolved. Neurologically in tact now and think etiology likely 2/2 dehydration/hypoxia. Follow. -CT head if recurs, but now no clear indication for further evaluation at this time given most likely etiology explained by acute illness, as above. (3) Hypoxia: Requiring only 2L via NC, comfortable. -may need 2 step/home O2. -Follow. (4) Supratherapeutic INR: 4.2 on admission, then 4.5 this morning. No clinical signs of bleeding, continue to hold warfarin for today's dose. Pending INR tomorrow, can likely resume tomorrow. -FOBT ordered given mild anemia, which is not acutely different from his apparent baseline. May benefit from outpatient iron studies/smear, defer to PCP. Supervising Physician Co-Signing Physician Notes I personally examined the patient and verified all crockett points of history and exam, discussed case, and agree with decision making with Dr Burroughs. Feeling better would like to go home. Turned oxygen off and he was 91 to 93% at rest. Later ambulated with nursing and he dropped into the 80%'s. Otherwise feeling better Vitals noted, in general he is awake and alert pleasant no distress. HEENT normal cephalic atraumatic mucous members moist. Breathing unlabored no accessory muscle use good effort. Skin shows no rashes no pallor or icterus Community-acquired pneumoniafortunately no aspiration identified, reflux aspiration could not be definitively ruled out but seems unlikely given his lack of symptoms. Continue antibiotics (agree with change to oral) and hopefully home once he is off of oxygen. Given his relative lack of other infectious signs or symptoms, would definitely want to follow radiographically his pneumonia until it is clear, but given his overall appearance of illness on presentation infection seems most likely. DVT prophylaxisCoumadin Coagulopathyrelated to Coumadin. His INR is supratherapeutic but he is not bleeding. Continue to hold Coumadin and follow Hypoxiasee above, improving Subjective Feeling better today. Denies cough or chest pain. Still on 2L. Tolerating PO. Ambulating, denies COOPER. Denies claude bleeding from bowel or bladder. No acute events overnight. Review of Systems Review of Systems: All systems reviewed & are unremarkable except as noted in HPI & below Physical Exam Physical Exam: Vitals noted and within normal limits with the exception of hypoxia, 92% on 2L O2 via NC. GENERAL: Awake, alert to person, place, and time, nontoxic-appearing, in no distress. HENT: Normocephalic, atraumatic. Nasal cannula in place. Mucus membranes appear moist. EYES: Normal conjunctiva. Sclera non-icteric. EOMI. NECK: Supple. Full range of motion. No JVD. RESPIRATORY: Inspiratory crackles auscultated B/L. Normal work of breathing. CARDIAC: Regular rate, normal rhythm. Extremities warm and well perfused, 2+ radial pulses bilaterally; 2+ posterior tibialis pulses bilaterally. ABDOMEN: Soft, non-distended. No tenderness to palpation in all four quadrants. No rebound or guarding. No masses. Bowel sounds are normal. LOWER EXTREMITIES: Inspection of calves reveal equal size bilaterally. They are non-tender. No edema. No discoloration. NEURO: No gross focal motor deficits noted. Sensation in tact. CN II-XII grossly in tact. No cerebellar sign. SKIN: Rash not present. No jaundice noted. Significant lesions not present. PSYCH: Appropriate mood and affect. Cooperative. Exam as done by Silvana Burroughs MD, Utility Gelatin Maker. Results & Data Vital Signs (Past 12 Hours) Vital Signs Temp Pulse Pulse Resp BP BP Pulse Ox 06/04/19 07:24 64 06/04/19 07:23 36.8 C 66 18 125/71 92 06/04/19 05:25 67 123/70 06/04/19 05:21 36.7 C 69 18 141/56 H 91 Laboratory Results 06/04/19 06/04/19 06/04/19 Range/Units 07:12 07:12 07:12 WBC 7.29 (4.8-10.8) K/uL RBC 3.83 L (4.7-6.1) M/uL Hgb 11.5 L (14.0-18.0) g/dL Hct 32.3 L (42-52) % MCV 84.3 (80-100) fL MCH 30.0 (25-34) pg MCHC 35.6 (32-36) g/dL RDW Std Deviation 38.8 (36.4-46.3) fL RDW Coeff of Hermelinda 12.8 (11.5-14.5) % Plt Count 288 (130-400) K/uL MPV 8.7 (7.4-10.4) fL Immature Gran % (Auto) 0.5 % Neut % (Auto) 79.4 % Lymph % (Auto) 10.6 % Mcclain % (Auto) 8.0 % Eos % (Auto) 1.4 % Baso % (Auto) 0.1 % Immature Gran # (Auto) 0.04 H (0.00-0.02) K/uL Neut # (Auto) 5.79 (1.4-6.5) K/uL Lymph # (Auto) 0.77 L (1.2-3.4) K/uL Mcclain # (Auto) 0.58 (0.11-0.59) K/uL Eos # (Auto) 0.10 (0-0.5) K/uL Baso # (Auto) 0.01 (0-0.2) K/uL PT 41.5 H (9.0-12.0) Seconds INR 4.5 H (0.9-1.1) Sodium 141 (136-145) mmol/L Potassium 3.9 (3.5-5.1) mmol/L Chloride 110 H (98-107) mmol/L Carbon Dioxide 22 (21-32) mmol/L Anion Gap 8.0 (3-11) BUN 19 H (7-18) mg/dl Creatinine 0.97 (0.6-1.4) mg/dl Est Cr Clr Drug Dosing 54.9 ml/min Est GFR ( Amer) 83.9 Est GFR (Non-Af Amer) 72.4 BUN/Creatinine Ratio 19.1 (10-20) Glucose 102 H (70-99) mg/dl Calcium 8.0 L (8.5-10.1) mg/dl Total Bilirubin 0.7 (0.2-1) mg/dl AST 23 (15-37) U/L ALT 40 (12-78) U/L Alkaline Phosphatase 82 (45-117) U/L Troponin I (0-0.045) ng/ml NT-Pro-B Natriuret Pep 388 (0-1800) pg/ml Total Protein 6.0 L (6.4-8.2) gm/dl Albumin 2.3 L (3.4-5.0) gm/dl Globulin 3.7 (2.5-4.0) gm/dl Albumin/Globulin Ratio 0.6 L (0.9-2) Lipase (73-393) U/L 06/03/19 06/03/19 06/03/19 Range/Units 18:06 18:01 18:01 WBC 8.53 (4.8-10.8) K/uL RBC 4.07 L (4.7-6.1) M/uL Hgb 11.9 L (14.0-18.0) g/dL Hct 34.4 L (42-52) % MCV 84.5 (80-100) fL MCH 29.2 (25-34) pg MCHC 34.6 (32-36) g/dL RDW Std Deviation 39.1 (36.4-46.3) fL RDW Coeff of Hermelinda 12.7 (11.5-14.5) % Plt Count 274 (130-400) K/uL MPV 9.3 (7.4-10.4) fL Immature Gran % (Auto) 0.4 % Neut % (Auto) 85.3 % Lymph % (Auto) 6.8 % Mcclain % (Auto) 7.2 % Eos % (Auto) 0.2 % Baso % (Auto) 0.1 % Immature Gran # (Auto) 0.03 H (0.00-0.02) K/uL Neut # (Auto) 7.28 H (1.4-6.5) K/uL Lymph # (Auto) 0.58 L (1.2-3.4) K/uL Mcclain # (Auto) 0.61 H (0.11-0.59) K/uL Eos # (Auto) 0.02 (0-0.5) K/uL Baso # (Auto) 0.01 (0-0.2) K/uL PT 38.1 H (9.0-12.0) Seconds INR 4.1 H (0.9-1.1) Sodium 140 (136-145) mmol/L Potassium 4.4 (3.5-5.1) mmol/L Chloride 111 H (98-107) mmol/L Carbon Dioxide 22 (21-32) mmol/L Anion Gap 7.0 (3-11) BUN 23 H (7-18) mg/dl Creatinine 1.09 (0.6-1.4) mg/dl Est Cr Clr Drug Dosing 48.9 ml/min Est GFR ( Amer) 72.9 Est GFR (Non-Af Amer) 62.9 BUN/Creatinine Ratio 21.5 H (10-20) Glucose 108 H (70-99) mg/dl Calcium 7.5 L (8.5-10.1) mg/dl Total Bilirubin 1.1 H (0.2-1) mg/dl AST 36 (15-37) U/L ALT 48 (12-78) U/L Alkaline Phosphatase 83 (45-117) U/L Troponin I < 0.015 (0-0.045) ng/ml NT-Pro-B Natriuret Pep (0-1800) pg/ml Total Protein 5.8 L (6.4-8.2) gm/dl Albumin 2.3 L (3.4-5.0) gm/dl Globulin 3.5 (2.5-4.0) gm/dl Albumin/Globulin Ratio 0.7 L (0.9-2) Lipase 54 L (73-393) U/L PG Care Time/CCT Total # of Minutes Spent Total Time Spent with Patient: Total time spent is greater than 50% in coordination of care (as documented) at patient's floor/unit and/or counseling patient: Resident Activity Tracking Resident Involvement: Resident Care Provided Care Provided: Adult Hospital Medicine (1) Syncope Syncope type: unspecified Qualified Code(s): R55 - Syncope and collapse (2) PNA (pneumonia) Laterality: bilateral Lung location: lower lobe of lung Pneumonia type: due to unspecified organism Qualified Code(s): J18.1 - Lobar pneumonia, unspecified organism
[2019-06-04] MEDS: AMOXICILLIN/CLAVULANATE 875 MG TAB PO SCH (16:29)
--- NOTE | 2019-06-04 23:12 | Progress Note ---
Date of Service June 04, 2019 Received a text page from the patient's nurse that patient had a history of atrial fibrillation and that his heart rates have been in the 130s to 140s without symptoms. - Ordered an EKG which shows A. abhi with RVR, rate 131, with his known left bundle branch block. - In review of his medical record, he has a known history of A. fib was in normal sinus on admission. Is regularly on diltiazem ER 240 mg daily. Was admitted for PNA. - Current vitals notable for a pulse in the 140s 150s, BP 133/68, with an SPO2 of 88% on 2 L (since increased to 3 L) nasal cannula. Plan: - Will start a diltiazem drip. Transfer to PCU for this. - Monitor for any associated new symptoms. Uli Delaney, PGY3 Overnight call Results & Data Vital Signs (Past 12 Hours) Vital Signs Temp Pulse Pulse Resp BP BP Pulse Ox 06/04/19 22:42 152 H 133/68 88 L 06/04/19 20:12 37 C 83 18 133/71 92 06/04/19 15:15 106 H 06/04/19 14:42 36.4 C L 83 18 148/66 H 91 06/04/19 12:12 36.9 C 76 16 144/70 H 92
[2019-06-05] MEDS: dilTIAZem HCl 125 MG in DEXTROSE 5% 100 ML IV SCH ×2 (00:22→23:02)
[2019-06-05 07:14] LABS: INR 3.1 (0.9-1.1); Prothrombin Time 29.3 Seconds (9.0-12.0)
[2019-06-05 07:37] LABS: BUN Creatinine Ratio 18.1 (10-20); Calcium 8.3 mg/dl (8.5-10.1); Creatinine Clr Calc Pharmacy 57.9 ml/min; Est GFR (African American) 89.5; Est GFR (Non-African American) 77.2; Potassium 3.8 mmol/L (3.5-5.1)
[2019-06-05] MEDS: PANTOprazole 40 MG TAB PO SCH (07:47)
[2019-06-05] MEDS: LISINOPRIL 5 MG TAB PO SCH (07:47)
[2019-06-05] MEDS: AMOXICILLIN/CLAVULANATE 875 MG TAB PO SCH ×2 (07:47→16:49)
[2019-06-05] MEDS: TAMSULOSIN HCL 0.4 MG CAP PO SCH (07:47)
[2019-06-05] MEDS: dilTIAZem HCL 240 MG CAPCR PO SCH (08:31)
--- NOTE | 2019-06-05 10:30 | Family Medicine Progress Note ---
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 PNA: - CAP - less likely aspiration - seen by speech Jun 04 here, and negative for dysphagia. - initially on rocephin and metronidazole - transition to PO monotherapy with augmentin BID, clinical improvement and reasonable coverage. - O2 as needed - still requiring especially since AFIB with RVR overnight - may need O2 possibly temporarily, +/- 2 step. AFIB with RVR -in setting of acute PNA -responding well to cardizem drip - improving -resume PO cardizem dosing -monitor on Tele FEN/GI: heart healthy diet. Judicious with fluids - last echo in 2013 showed EF40-45%. DVT ppx: warfarin CODE STATUS: FULL DISPO: Med/tele Other ongoing medical problems: HTN - ok to restart lisinopril BPH - continue home flomax (2) Syncope: Resolved. Neurologically in tact now and think etiology likely 2/2 dehydration/hypoxia. Follow. -CT head if recurs, but now no clear indication for further evaluation at this time given most likely etiology explained by acute illness, as above. (3) Hypoxia: as above (4) Supratherapeutic INR: 4.2 on admission, -> 4.5 -> 3.2 this morning. No clinical signs of bleeding, held warfarin x2 days. -FOBT ordered given mild anemia, which is not acutely different from his apparent baseline. May benefit from outpatient iron studies/smear, defer to PCP. Pending but not acutely an issue. -RESUME warfarin today 06/05 Supervising Physician Co-Signing Physician Notes I personally examined the patient and verified all crockett points of history and exam, discussed case, and agree with decision making with Dr Burroughs. Had A. fib/RVR overnight. Still feeling okay. Rate control improving. Vitals noted, in general he is awake and alert pleasant no distress. HEENT normal cephalic atraumatic mucous members moist. Breathing unlabored no accessory muscle use good effort. Skin shows no rashes no pallor or icterus Community-acquired pneumoniadoing well on Augmentin. Continue to try to wean oxygen. Likely the worsening overnight was due to a mild diastolic failure from his RVR. A. fib/RVRhas a baseline of chronic A. fib, likely the physiologic stress from being sick led to the RVR. This appears to have led to a little bit of diastolic dysfunction related pulmonary edema which appears to be improving. Transition off of IV diltiazem back to his home dosing, we did discuss that he may temporarily need a slightly higher dose as he improves from the pneumonia. DVT prophylaxisCoumadin Coagulopathyrelated to Coumadin. Resume Coumadin today Hypoxiasee above, improving Dispositionanticipate home once his RVR is improving. If it seems difficult to wean the oxygen, then we may need to consider temporary home oxygen, but hopefully this will not be the case. Subjective Overnight had AFIB with RVR rate in 150s. See solid waste engineer progress note - begun on diltiazem drip, tolerating well. Slight increase in oxygen needs. This morning notes decreased appetite, but is otherwise feeling the same - denies chest tightness or pain, breathing easy, ambulating well without weakness or pre-syncope or syncope. Currently on diltiazem drip and is receiving his morning PO dose of cardizem. Review of Systems Review of Systems: All systems reviewed & are unremarkable except as noted in HPI & below Physical Exam Physical Exam: Vitals noted and within normal limits with the exception of hypoxia, 90% on 3L O2 via NC. GENERAL: Awake, alert to person, place, and time, nontoxic-appearing, in no distress. HENT: Normocephalic, atraumatic. Nasal cannula in place. Mucus membranes appear moist. EYES: Normal conjunctiva. Sclera non-icteric. EOMI. NECK: Supple. Full range of motion. No JVD. RESPIRATORY: Inspiratory crackles auscultated B/L, RThigher>LT. Normal work of breathing. CARDIAC: Regular rate, normal rhythm, currently NSR rate in 90s. Extremities warm and well perfused, 2+ radial pulses bilaterally; 2+ posterior tibialis pulses bilaterally. ABDOMEN: Soft, non-distended. Bowel sounds are normal. LOWER EXTREMITIES: Inspection of calves reveal equal size bilaterally. They are non-tender. No edema. No discoloration. NEURO: No gross focal motor deficits noted. Sensation in tact. CN II-XII grossly in tact. No cerebellar sign. SKIN: Rash not present. No jaundice noted. Significant lesions not present. PSYCH: Appropriate mood and affect. Cooperative. Exam as done by Silvana Burroughs MD, Assistant Manager/Embalmer. Results & Data Vital Signs (Past 12 Hours) Vital Signs Temp Pulse Pulse Resp BP BP Pulse Ox 06/05/19 09:07 84 06/05/19 07:46 36.7 C 70 20 111/68 90 06/05/19 04:02 37.5 C 92 H 18 118/73 93 06/05/19 00:34 06/04/19 23:12 37.2 C 121 H 20 124/82 90 06/04/19 22:42 152 H 133/68 88 L Pulse Ox 06/05/19 09:07 06/05/19 07:46 06/05/19 04:02 06/05/19 00:34 91 06/04/19 23:12 06/04/19 22:42 Laboratory Results 06/05/19 06/05/19 Range/Units 06:36 06:36 PT 29.3 H (9.0-12.0) Seconds INR 3.1 H (0.9-1.1) Sodium 137 (136-145) mmol/L Potassium 3.8 (3.5-5.1) mmol/L Chloride 105 (98-107) mmol/L Carbon Dioxide 24 (21-32) mmol/L Anion Gap 8.0 (3-11) BUN 17 (7-18) mg/dl Creatinine 0.92 (0.6-1.4) mg/dl Est Cr Clr Drug Dosing 57.9 ml/min Est GFR ( Amer) 89.5 Est GFR (Non-Af Amer) 77.2 BUN/Creatinine Ratio 18.1 (10-20) Glucose 111 H (70-99) mg/dl Calcium 8.3 L (8.5-10.1) mg/dl Medications Administered Current Inpatient Medications Acetaminophen (Tylenol) 650 mg PO Q4H PRN PRN Reason: Pain or Fever Stop: 07/03/19 20:38 Al Hydrox/Mg Hydrox/Simethicone (Maalox) 15 ml PO Q4H PRN PRN Reason: Dyspepsia Stop: 07/03/19 20:38 Amoxicillin/Clavulanate Potassium (Augmentin 875mg) 1 tab PO BIDM SHARRI Stop: 06/13/19 16:59 Last Admin: 06/05/19 07:47 Dose: 1 tab Documented by: Diltiazem HCl (Cardizem Cd) 240 mg PO DAILY [facility] Stop: 07/04/19 08:59 Last Admin: 06/05/19 08:31 Dose: 240 mg Documented by: Diltiazem HCl 125 mg/ Dextrose 125 mls @ 5 mls/hr IV .Q24H SHARRI; Protocol Stop: 07/04/19 23:53 Last Titration: 06/05/19 07:02 Dose: 5 mg/hr, 5 mls/hr Documented by: Lisinopril (Zestril) 5 mg PO DAILY [facility] Stop: 07/04/19 08:59 Last Admin: 06/05/19 07:47 Dose: 5 mg Documented by: Magnesium Hydroxide (Milk Of Magnesia) 30 ml PO Q12H PRN PRN Reason: Constipation Stop: 07/03/19 20:38 Nitroglycerin (Nitro-Bid 2%) 1 inch EXT Q6 SHARRI Stop: 07/04/19 00:00 Last Admin: 06/04/19 17:42 Dose: 1 inch Documented by: Nitroglycerin (Nitrostat) 0.4 mg SL UD PRN PRN Reason: Chest Pain Stop: 07/03/19 20:38 Pantoprazole Sodium (Protonix) 40 mg PO DAILY [facility] Stop: 07/04/19 08:59 Last Admin: 06/05/19 07:47 Dose: 40 mg Documented by: Polyethylene Glycol (Miralax Powder Packet) 17 gm PO DAILY PRN PRN Reason: Constipation Stop: 07/03/19 20:38 Tamsulosin HCl (Flomax) 0.4 mg PO DAILY [facility] Stop: 07/04/19 08:59 Last Admin: 06/05/19 07:47 Dose: 0.4 mg Documented by: Zolpidem Tartrate (Ambien) 5 mg PO HS PRN PRN Reason: Sleep Stop: 07/03/19 20:38 PG Care Time/CCT Total # of Minutes Spent Total Time Spent with Patient: Total time spent is greater than 50% in coordination of care (as documented) at patient's floor/unit and/or counseling patient: Resident Activity Tracking Resident Involvement: Resident Care Provided Care Provided: Adult Hospital Medicine (1) Syncope Syncope type: unspecified Qualified Code(s): R55 - Syncope and collapse (2) PNA (pneumonia) Laterality: bilateral Lung location: lower lobe of lung Pneumonia type: due to unspecified organism Qualified Code(s): J18.1 - Lobar pneumonia, unspecified organism
[2019-06-05] MEDS: WARFARIN SOD 4 MG TAB PO SCH (16:50)
[2019-06-06] MEDS: AMOXICILLIN/CLAVULANATE 875 MG TAB PO SCH ×2 (06:59→16:45)
[2019-06-06] MEDS: dilTIAZem HCL 240 MG CAPCR PO SCH (07:00)
[2019-06-06 07:20] LABS: BUN Creatinine Ratio 15.4 (10-20); Calcium 8.3 mg/dl (8.5-10.1); Creatinine Clr Calc Pharmacy 52.7 ml/min; Est GFR (African American) 79.9; Est GFR (Non-African American) 68.9; Magnesium 1.8 mg/dl (1.8-2.4)
[2019-06-06] MEDS: TAMSULOSIN HCL 0.4 MG CAP PO SCH (07:46)
[2019-06-06] MEDS: PANTOprazole 40 MG TAB PO SCH (07:46)
[2019-06-06] MEDS: LISINOPRIL 5 MG TAB PO SCH (07:46)
[2019-06-06 08:00] LABS: INR 2.4 (0.9-1.1); Prothrombin Time 23.3 Seconds (9.0-12.0)
[2019-06-06] MEDS: dilTIAZem HCl 125 MG in DEXTROSE 5% 100 ML IV SCH (10:00)
[2019-06-06] MEDS: WARFARIN SOD 4 MG TAB PO SCH (16:45)
--- NOTE | 2019-06-06 20:51 | Family Medicine Progress Note ---
Date of Service June 06, 2019 Assessment & Plan (1) PNA (pneumonia): 83 yo M here with syncopal event at home [employer] and found to be hypoxic and + RT basilar pneumonia. PNA: - CAP - less likely aspiration - seen by speech Jun 04 here, and negative for dysphagia. - initially on rocephin and metronidazole - transition to PO monotherapy with augmentin BID, clinical improvement and reasonable coverage. - O2 as needed - still requiring especially since AFIB with RVR overnight - may need O2 possibly temporarily AFIB with RVR In setting of acute PNA Did well on cardizem drip, in transitioning to PO patient jumped back to RVR Restarted cardizem drip and patient rate controlled currently. Will give first dose of 90 mg qid immediate release tonight 1 hour before weaning drip with goal of 360 mg total daily dose monitor on Tele FEN/GI: heart healthy diet. Judicious with fluids - last echo in 2013 showed EF40-45%. DVT ppx: warfarin CODE STATUS: FULL DISPO: Med/tele Supervising Physician Co-Signing Physician Notes I personally examined the patient and verified all crockett points of history and exam, discussed case, and agree with decision making with Dr Wylie. After the patient's transition to oral medication he again had rapid ventricular response and was restarted on a Cardizem drip. Suspect his home dose will be 360 mg -we will look to transition him again to p.o. in hopes that we can get him home tomorrow. Continue efforts to wean oxygen. He remains afebrile. He has no cough. He has no shortness of breath at rest or with ADLs. He will need a two-step prior to discharge. Subjective Patient had some confusion today and told his family we were planning on placing a pacemaker. Cleared up confusion and told him we were not placing a pacemaker but instead were controlling his rate and trying to convert him to oral cardizem for discharge tomorrow. Patient and family expressed their understanding. Review of Systems Review of Systems: All systems reviewed & are unremarkable except as noted in HPI & below Physical Exam Constitutional: well developed, well nourished, cooperative and comfortable; no acute distress and no altered mental status Respiratory: normal respiratory effort; no respiratory distress Auscultation: + crackles (bilateral lower lobe) Cardiovascular: Rate/Rhythm: + abnormal rate and + abnormal rhythm Heart Sounds: normal S1 and normal S2; no click, no gallop, no murmur and no cardiac rub Gastrointestinal (Abdomen): normal bowel sounds, soft, nontender, no hepatosplenomegaly Results & Data Vital Signs (Past 12 Hours) Vital Signs Temp Pulse Pulse Resp BP BP Pulse Ox 06/06/19 15:53 37.5 C 91 H 18 117/75 93 06/06/19 12:01 96 H 25 H 91 06/06/19 12:00 109 H 35 H 120/63 91 06/06/19 11:46 93 H 25 H 92 06/06/19 11:45 94 H 36 H 116/70 93 06/06/19 11:31 82 26 H 94 06/06/19 11:30 81 27 H 105/58 L 94 06/06/19 11:16 84 26 H 94 06/06/19 11:15 87 24 112/62 92 06/06/19 11:01 90 27 H 94 06/06/19 11:00 89 28 H 92/67 L 94 06/06/19 10:59 36.9 C 87 84 32 H 97/52 L 97/52 L 95 06/06/19 10:46 91 H 22 94 06/06/19 10:45 86 23 91/63 L 94 06/06/19 10:31 95 H 22 93 06/06/19 10:30 97 H 25 H 102/67 94 06/06/19 10:16 101 H 24 94 06/06/19 10:15 98 H 28 H 106/63 94 06/06/19 10:13 97 H 21 112/56 L 95 06/06/19 10:12 110 H 29 H 112/66 95 06/06/19 10:00 117 H 30 H 92 06/06/19 09:45 147 H 06/06/19 09:30 148 H 06/06/19 09:15 142 H 06/06/19 09:00 111 H 06/06/19 08:45 90 PG Care Time/CCT Total # of Minutes Spent Total Time Spent with Patient: Total time spent is greater than 50% in coordination of care (as documented) at patient's floor/unit and/or counseling patient: Resident Activity Tracking Resident Involvement: Resident Care Provided Care Provided: Adult Hospital Medicine (1) PNA (pneumonia) Laterality: bilateral Lung location: lower lobe of lung Pneumonia type: due to unspecified organism Qualified Code(s): J18.1 - Lobar pneumonia, unspecified organism
[2019-06-06] MEDS: dilTIAZem HCL 30 MG TAB PO SCH (22:02)
[2019-06-07] MEDS: dilTIAZem HCL 30 MG TAB PO SCH (06:26)
[2019-06-07] MEDS: AMOXICILLIN/CLAVULANATE 875 MG TAB PO SCH (08:32)
[2019-06-07] MEDS: LISINOPRIL 5 MG TAB PO SCH (08:32)
[2019-06-07] MEDS: TAMSULOSIN HCL 0.4 MG CAP PO SCH (08:32)
[2019-06-07] MEDS: PANTOprazole 40 MG TAB PO SCH (08:32)
[2019-06-07] MEDS ORDERED: dilTIAZem HCL 180 MG CAPCR PO SCH (10:00)
--- NOTE | 2019-06-07 20:38 | Discharge Summary ---
Date of Service June 07, 2019 Admission HPI Per Admitting Provider Patient is a 83 years old white male with past medical history of A. fib's on warfarin,, sleep apnea, presents to the emergency room with a complaint of shortness of breath and cough started 2 weeks ago. Patient states that he was moving his wound today he noted that this caused him to experience worsening shortness of breath and weakness. Patient says that his appetite is decreased. Patient states that patient was found on the ground and he passed out but did not know how long. EMS states stated the patient had a second episode of syncope when they arrived at the scene. Per patient he is mildly coughing and has abdominal discomfort for approximately 2 weeks weakness is worsening from day today. Patient denies fever chills headache chest pain abdominal pain frequency urgency hemoptysis or hematuria. Patient said that he coughs up approximately little bit of slime and it is yellow. Labs were reviewed and showed viral cell of 8.53 hemoglobin 11.9 hematocrit 34.4 platelets of 274, INR- still pending, sodium 140 potassium 4.4 chloride 111 BUN 23 creatinine 1.09 GFR of 48.9 BUN of 23.3. Chest x-rays showed cardiomegaly without radiographic evidence of congestive heart failure. There is bibasilar a space consolidation, typical in appearance for pneumonia/aspiration showing pneumonitis. There are small pleural effusions. Admission Exam Per Admitting Provider Constitutional: WD/WN, vitals as above well developed and + frail appearing Eyes: PERRL, conjunctivae normal, anicteric sclerae ENMT: external ear and nose normal, oropharynx normal Neck: trachea midline, no thyromegaly Respiratory: + dullness to percussion, + hyperresonance to percussion and + cough Auscultation: + crackles, + rales and + wheezes Cardiovascular: Rate/Rhythm: + irregularly irregular Heart Sounds: + murmur Chest (Breasts): normal inspection/palpation of breasts Gastrointestinal (Abdomen): normal bowel sounds, soft, nontender, no hepatosplenomegaly Musculoskeletal: no cyanosis or clubbing, extremities motor strength 5/5 Skin: Pale Neurologic: patellar DTR's 2+ bilat, sensation intact Psychiatric: A+Ox3, euthymic affect Genitourinary: no testicular masses, no penis abnormality Lymphatic: no cervical or axillary lymphadenopathy Principal Diagnosis Community Acquired Pneumonia and afib with rvr Discharge Exam Constitutional: well developed, well nourished, cooperative and comfortable; no acute distress and no altered mental status Respiratory: normal respiratory effort; no respiratory distress Auscultation: + crackles (bilateral lower lobe) Cardiovascular: Rate/Rhythm: normal rate and + abnormal rhythm Heart Sounds: normal S1 and normal S2; no click, no gallop, no murmur and no cardiac rub Gastrointestinal (Abdomen): normal bowel sounds, soft, nontender, no hepatosplenomegaly Discharge Data Allergies Allergy/AdvReac Type Severity Reaction Status Date / Time codeine Allergy Unknown UNKNOWN Verified 06/03/19 17:36 Consultations 06/03/19 18:36 ED Decision to Admit Stat Hospital Course (1) PNA (pneumonia): 83 yo M here with syncopal event at home [employer] and found to be hypoxic and + RT basilar pneumonia. PNA: - CAP - less likely aspiration - seen by speech Jun 04 here, and negative for dysphagia. - initially on rocephin and metronidazoel transitioned to PO monotherapy with augmentin BID, clinical improvement and reasonable coverage. Will continue for 10 days total script sent to [facility] - O2 as needed, two step on discharge recommends needing 2 L at rest and up to 4L when exerting AFIB with RVR In setting of acute PNA Did well on cardizem drip, in transitioning to PO patient jumped back to RVR Restarted cardizem drip and regained control at 5 mg/hour. first dose of 90 mg qid immediate release tonight 1 hour before weaning drip Had good control transitioned to 360 mg extended release daily No other changes made, transition off oxygen as pneumonia improves. Total Time Total Time Spent Total Time Spent (In Minutes): 21 Discharge Plan Discharge Items Patient Disposition: Home - Self-Care Reason For Visit: SOB,GENERALIZED MALAISE Discharge Diagnosis: Community Acquired pneumonia and Atrial Fibrillation with RVR Discharge Goals: Improve disease control and Therapeutic intervention Activity: Resume your previous activity Non-emergency contact: Primary Care Provider Call non-emergency contact if: you have any medication questions, your symptoms worsen and your temperature is above 100.5 Follow-up/Referrals: Jose C Velasco MD [Primary Care Provider] - 06/14/19 11:30 am (A follow up appt. has been made for you with Dr. Velasco on June 14 at 11:30am.) Diet: Heart Healthy Addtl Provider Instructions: Mr. Mancia, it was our pleasure to treat you here at [facility]. You have a mild community acquired pneumonia that we are treating with an oral antibiotic agent called augmentin. We will have you finish a ten day course of this which will mean taking seven more days of it at home. In addition we are increasing your daily diltiazem (Cardizem) dose to 360 mg once a day. You can stop your previous 240 mg dose and begin your 360 mg dose tomorrow after you pick it up from the pharmacy. We are also discharging you home on oxygen, this will only be temporary while you recover from your pneumonia. We will arrange a follow up appointment with your primary care physician in the next week. Prescriptions: New amoxicillin-pot clavulanate 875-125 mg Tablet 1 tab PO BIDM 7 Days Qty: 14 RF: 0 diltiazem HCl 360 mg capsule,extended release 24hr 360 mg PO QAM Qty: 30 RF: 0 Continued warfarin 4 mg tablet 4 mg PO UD RF: 0 tamsulosin 0.4 mg capsule 0.4 mg PO DAILY RF: 0 omeprazole 20 mg capsule,delayed release(DR/EC) 20 mg PO DAILY RF: 0 lisinopril 5 mg tablet 5 mg PO DAILY RF: 0 Discontinued diltiazem HCl 240 mg capsule,extended release 24 hr 240 mg PO DAILY RF: 0 levofloxacin 500 mg tablet 500 mg PO DAILY RF: 0 Stand-Alone Forms: [facility] Discharge Orders: Discharge Order (Routine); Ordered 06/07/19 Ordered By: Kj Wylie Admission Data Admit Date/Time: 06/03/19 19:41 Attending Provider: Dean Reyes Admit Provider: Malgorzata Sommers Primary Care Provider: Jose C Velasco Other Providers: Malgorzata Sommers Service: Telemetry Other Interventions: Discharge Summary Assessment (RN) Last Done: 06/07/19 10:14 DC Date/Time DO NOT enter until pt leaves facility: 06/07/19 14:25 Supervising Physician Co-Signing Physician Notes I personally examined the patient and verified all crockett points of history and exam, discussed case, and agree with decision making with Dr Wylie. Patient this morning is feeling quite well. He has no cough. Denies any dyspnea at rest or with ambulation. He still remains mildly hypoxic with activity and will need oxygen at home. This arrangement has been made. His rate is much better controlled today. Instructions as noted above for management regarding his new dose of Cardizem. PCP follow-up has been made for recheck. Resident Activity Tracking Resident Involvement: Resident Care Provided Care Provided: Adult [facility]
== END 2019-06-07 14:25 | disposition home or self-care (01) | DRG 208 ==
LOC: ED 15:58 → SUATTDRO 19:41 → 2N 19:41 → 2E 06-04 23:05

== ENCOUNTER 2019-06-14 12:17 | Inpatient (IN) ==
[2019-06-14] MEDS ORDERED: dilTIAZem HCl 125 MG in DEXTROSE 5% 100 ML IV STA (12:40)
[2019-06-14] MEDS ORDERED: ALBUT/IPRATROP 3MG/0.5MG NEB 3 ML VIAL INH STA (12:40)
[2019-06-14] MEDS ORDERED: dilTIAZem HCl 5 MG/ML 5 ML VIAL IV STA (12:40)
[2019-06-14 12:55] LABS: Basophils # (auto) 0.02 K/uL (0-0.2); Basophils % (auto) 0.2 %; Eosinophils # (auto) 0.04 K/uL (0-0.5); Eosinophils % (auto) 0.3 %; Hematocrit (blood only) 40.9 % (42-52); Hemoglobin 14.3 g/dL (14.0-18.0); Immature Granulocytes # (auto) 0.05 K/uL (0.00-0.02); Immature Granulocytes % (auto) 0.4 %; Lymphocytes # (auto) 0.81 K/uL (1.2-3.4); Lymphocytes % (auto) 6.9 %; Mean Corpuscular Hemoglobin 29.4 pg (25-34); Mean Corpuscular Volume 84.2 fL (80-100); Mean Platelet Volume 9.7 fL (7.4-10.4); Monocytes # (auto) 0.94 K/uL (0.11-0.59); Neutrophils # (auto) 9.94 K/uL (1.4-6.5); Neutrophils % (auto) 84.2 %; Platelet Count 416 K/uL (130-400); RDW Coefficient of Variation 12.9 % (11.5-14.5); Red Blood Count 4.86 M/uL (4.7-6.1)
[2019-06-14] MEDS ORDERED: CEFEPIME 2,000 MG in SYRINGE 7.5 ML IV STA (13:05)
--- NOTE | 2019-06-14 13:17 | History & Physical Report ---
Date of Service June 14, 2019 Assessment & Plan (1) PNA (pneumonia): -Admit to telemetry -Started on IV cefepime while in the ER, will continue for now -Follow Blood culture and Sputum culture although has been on 1 week of oral antibiotics -Chest x-ray reviewed, official read pending but appears there is worsening in the right base and pulmonary edema throughout -Incentive spirometry, flutter, Mucinex, Tessalon Perles, levalbuterol nebs -Order dose of Solu-Medrol 60 mg IV now -MRSA swab, if positive will add on Vanco IV -Lactic acid elevated at 2.5, recheck ordered at 1600 (2) Atrial fibrillation with RVR: - Continue cardizem gtt - Patient is on Cardizem 360 mg p.o. at home, will hold for now and likely can transition over to this within the next 1 to 2 days - EKG reviewed showing A. fib with RVR, HR now in the 110s. BP is stable. 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 He reports that since leaving the hospital he has not felt near back to baseline. He reports feeling weak and tired. He has steadily developed shortness of breath over the past week. Today he was scheduled for a routine follow up with his PCP, Dr. Fang, who upon seeing the patient in his office, personally drove him to the ER for treatment. The patient denies fever, chills or sweats. He is requiring an oximask at 9L where typically does not require any supplemental O2. He denies chest pain, tightness or heaviness. He denies other sick contacts. He states he has been taking the Augmentin since discharge last time and that today was the last scheduled day for abx. WBC elevated 11.8, lactate is 2.5, CXR appears worse compared to previous visit with increased oppacities at the R base and with pulmonary edema throughout. He is tachycardic with HR = 102. RR= 29 while on oximask. Allergies Allergy/AdvReac Type Severity Reaction Status Date / Time codeine Allergy Unknown UNKNOWN Verified 06/03/19 17:36 Home Medications Home Medications Medication Instructions Recorded Confirmed Type lisinopril 5 mg PO DAILY 06/03/19 06/03/19 History omeprazole 20 mg PO DAILY 06/03/19 06/03/19 History tamsulosin 0.4 mg PO DAILY 06/03/19 06/03/19 History warfarin 4 mg PO UD 06/03/19 06/03/19 History diltiazem HCl 360 mg PO QAM #30 cap 06/07/19 Rx Past Med/Surg History Medical History Vertigo (Chronic) Sleep apnea (Chronic) History of echocardiogram (Chronic) Heart murmur (Chronic) Family History Other No significant family history Social History Preferred Language: French Communication Ability: Effective 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 Beliefs That Will Affect Care: None Current Living Situation: Spouse Feels Safe at Home: Yes Smoking Status: Former smoker Second Hand Exposure: No ; Hx Alcohol Use: No Hx Substance Use: No Review of Systems Review of Systems: Constitutional: No fever, sweats or chills Eyes: No diplopia, no worsening or blurred vision ENT: normal hearing, no trouble swallowing Respiratory:+ SOBat rest and on exertion, minimal cough, no production Cardiovascular: No chest pain, tightness or palpitations Abdomen: No pain, nausea, vomiting, diarrhea or constipation Musculoskeletal: No joint pain, calf pain, swelling Neurologic: + generalized weakness, no numbness/tingling, or balance problems Psychiatric: No anxiety or depression Skin: No rash or itch Physical Exam Physical Exam: General: awake, alert, no apparent distress Head: Normocephalic, atraumatic ENT: PERRL, EOMI, no pharyngeal exudate, mucous membranes moist Chest: + On 9 L via oximask, + coarse breath sounds, diminished to nearly absent in the RLL, + crackles Cardiac: irregularly irregular + tachy, no murmur, no JVD, normal peripheral pulses, good capillary refill Abdominal: NABS x 4 quadrants, soft, nontender to palpation, no rebound, guarding or tenderness Extremities: Normal inspection, no peripheral edema or erythema, calfs nontender to palpation Psych: Normal mood and affect Neuro: AAO x 3, strength intact bilaterally and related 5/5, no motor deficits, speech is clear, no peripheral sensory deficits Results & Data Vital Signs (Past 12 Hours) Vital Signs Temp Pulse Pulse Resp BP Pulse Ox 06/14/19 12:58 115 H 22 95 06/14/19 12:40 99 H 38 H 96 06/14/19 12:21 36.7 C 121 H 135/66 84 L 06/14/19 12:17 90 Diagnostic Findings CXR read pending CTPE ordered ECG Additional Comments: 14-JUN-2019 12:28:14 [facility]-EDSTAT ROUTINE RETRIEVAL Atrial fibrillation with rapid ventricular response Left axis deviation Left bundle branch block Abnormal ECG When compared with ECG of 04-JUN-2019 22:56, No significant change was found 25mm/s 10mm/mV 150Hz 9.0.8 12SL 241 DIANA: 15 Referred by: REFERRED SELF Unconfirmed Vent. rate [address] interval * ms QRS duration 134 ms QT/QTc 340/484 ms P-R-T axes * -37 119 Code Status & VTE Plan Code Status Full code - discussed with pt and at bedside Supervising Physician Co-Signing Physician Notes I personally examined the patient and verified all crockett points of history and exam, discussed case, and agree with decision making with Fawn RUBIO Feeling worse. Breathing worse. Looks worse than whenever I last saw him midway through his prior admission. Vitals noted, in general he is fatigued appearing mildly dyspneic. HEENT normocephalic atraumatic mucous membranes are moist. Lungs show diffuse rales throughout his right lung field, more clear on the left. May be a bit of a faint wheeze type sound. No accessory muscle use. CT scan noted and reviewed, as well as report Healthcare associated pneumoniaworsening hypoxic respiratory failure due to sameagree with cefepime to cover for resistant gram-negative, MRSA nares and if positive initiate vancomycin to cover for resistant gram-positive's. Continue supportive care. Concern on whether or not he is developing an empyema with the effusion around the right lung, will ask pulmonary for input in this regard. A. fib/RVRrelated to the physiologic stress from the pneumonia. Diltiazem drip to affect rate control. DVT prophylaxiswarfarin as is his baseline for A. fib otherwise as above PG Care Time/CCT Total # of Minutes Spent Total Time Spent with Patient: Total time spent is greater than 50% in c oordination of care (as documented) at patient's floor/unit and/or counseling patient: (1) PNA (pneumonia) Laterality: bilateral Lung location: lower lobe of lung Pneumonia type: due to unspecified organism Qualified Code(s): J18.1 - Lobar pneumonia, unspecified organism
--- NOTE | 2019-06-14 13:23 | XRay Report ---
XR chest 1V portable CLINICAL HISTORY: Dyspnea. COMPARISON STUDY: PET/CT March 03, 2016. Chest radiograph June 03, 2019. FINDINGS: Lung volumes are diminished. There are small bilateral pleural effusions. Bilateral airspac e opacities have progressed since exam of June 03, 2019. Cardiomegaly is noted. There is no pneumoth orax. IMPRESSION: 1. Progression of bilateral airspace opacities which favor pneumonia. Radiographic follow-up to ensur e resolution is recommended. 2. Small bilateral pleural effusions. Electronically signed by: Ronal Valle M.D. 06/14/2019 1:22 PM
[2019-06-14] MEDS ORDERED: ONDANSETRON INJ 2 MG/ML 2 ML VIAL IV PRN (13:24)
[2019-06-14] MEDS ORDERED: ACETAMINOPHEN 325 MG TAB PO PRN (13:24)
[2019-06-14 13:47] LABS: Chloride 102 mmol/L (98-107); Potassium 4.3 mmol/L (3.5-5.1); Sodium 136 mmol/L (136-145)
[2019-06-14 13:52] LABS: INR 2.6 (0.9-1.1); Partial Thromboplastin Ratio 1.7; Prothrombin Time 24.9 Seconds (9.0-12.0)
[2019-06-14 13:52] LABS: Alanine Aminotransferase 96 U/L (12-78); Albumin Level 2.6 gm/dl (3.4-5.0); Aspartate Aminotransferase 65 U/L (15-37); BUN Creatinine Ratio 24.6 (10-20); Blood Urea Nitrogen 28 mg/dl (7-18); Calcium 9.1 mg/dl (8.5-10.1); Carbon Dioxide 27 mmol/L (21-32); Creatinine Clr Calc Pharmacy 47.5 ml/min; Est GFR (African American) 70.5; Est GFR (Non-African American) 60.8; Glucose 117 mg/dl (70-99); Magnesium 2.2 mg/dl (1.8-2.4)
[2019-06-14 13:57] LABS: Albumin Globulin Ratio 0.5 (0.9-2); Alkaline Phosphatase 180 U/L (45-117); Bilirubin,Total 1.4 mg/dl (0.2-1); Globulin 5.3 gm/dl (2.5-4.0); NT Pro B Type Natriuretic Pept 806 pg/ml (0-1800); Total Protein 7.9 gm/dl (6.4-8.2); Troponin I < 0.015 ng/ml (0-0.045)
[2019-06-14] MEDS ORDERED: methylPREDNISolone 125 MG/2 ML VIAL IV STA (14:08)
[2019-06-14] MEDS ORDERED: OPTIRAY 320 125ml IV PRN (14:38)
--- NOTE | 2019-06-14 14:54 | CT Scan Report ---
CT ANGIOGRAPHY OF THE CHEST, PULMONARY EMBOLUS PROTOCOL CLINICAL HISTORY: Shortness of breath. COMPARISON STUDY: Chest CT July 14, 2011 and chest radiograph performed earlier today. TECHNIQUE: Following IV administration of 89 mL of Optiray-320, helical axial images of the chest wer e obtained utilizing the pulmonary embolus protocol. Maximal intensity projections and sagittal and coronal reformats were viewed on an independent 3D workstation. IV contrast was administered without complication. Automated exposure control was utilized for the study. A dose lowering technique was utilized adhering to the principles of ALARA. CT DOSE: 249.01 mGy.cm FINDINGS: No pulmonary embolus is identified. The heart is moderately enlarged. There is no pericard ial effusion. No enlarged thoracic lymph nodes are present. The central airways are patent. Extensive consolidation is noted throughout both lungs, greater within the right lung. There is no cavitation. Trace left pleural effusion is noted. A small partially loculated right pleural effusion is noted. T here is no pneumothorax. No central obstructing mass is identified. Bony thorax is unremarkable. Live r surface is slightly lobulated. IMPRESSION: 1. No pulmonary embolus identified. 2. Extensive bilateral consolidation, greater within the right lung. The findings favor multifocal pn eumonia. 3. Small, partially loculated right pleural effusion. Sterility of this effusion cannot be assessed b y CT. Trace left pleural effusion. 4. Moderate cardiomegaly. Electronically signed by: Ronal Valle M.D. 06/14/2019 2:53 PM
[2019-06-14] MEDS ORDERED: CEFEPIME 1,000 MG in SYRINGE 0 ML IV SCH (15:07)
--- NOTE | 2019-06-14 16:43 | Emergency Department Note ---
Entered by Gloria Yeh acting as a scribe for Reza Zhong MD History of Present Illness General Chief complaint: Respiratory Problems Stated complaint: RESP FAILURE, A FIB Time Seen by Provider: 06/14/19 12:32 Source: patient and other (Dr. Velasco, patients family doctor) Mode of arrival: wheelchair Limitations: no limitations History of Present Illness Onset (ago): day(s) 3 Location: chest Radiation: non-radiation Pain Consistency: + constant Maximum Pain Intensity: 4 Current Pain Intensity: 4 Relieved By: + other (Oxygen) Exacerbated By: + none Associated symptoms: no chest pain, no cough and no fever/chills Treatments prior to arrival: none The patient is an 83 year old male who presents to the ED with complaints of worsening shortness of breath. He states he had pneumonia recently and was in to see Dr. Velasco, his family doctor, for a post hospital check-up this morning. The patient was discharged on 06/07 after a stay for pneumonia and atrial fibrillation. He was discharged on Augmentin for 1 week and his Cardizem dosing was increased. He states he had been feeling unwell for the past few weeks. He denies any recent increased cough or fevers. He denies any chest pain. He does have a history of atrial fibrillation that is controlled with Diltiazem and Coumadin. Dr. Velasco states the patient was dyspneic and diaphoretic when he came in to the office. His Oxygen saturation was 82% on 2L NC, they did an EKG at the outpt office that showed atrial fibrillation. He denies any history of heart failure or prior heart attack. Dr. Velasco notes the patient responded well to IV Cardizem during previous hospital stay. Home Medications Home Medications Medication Instructions Recorded Confirmed Type lisinopril 5 mg PO DAILY 06/03/19 06/03/19 History omeprazole 20 mg PO DAILY 06/03/19 06/03/19 History tamsulosin 0.4 mg PO DAILY 06/03/19 06/03/19 History warfarin 4 mg PO UD 06/03/19 06/03/19 History diltiazem HCl 360 mg PO QAM #30 cap 06/07/19 Rx Allergies Allergy/AdvReac Type Severity Reaction Status Date / Time codeine Allergy Unknown UNKNOWN Verified 06/03/19 17:36 Past Med/Surg History Medical History Vertigo (Chronic) Sleep apnea (Chronic) History of echocardiogram (Chronic) Heart murmur (Chronic) Family History Other No significant family history Social History Preferred Language: Syrian Communication Ability: Effective Gas Transfer Operator Required: No Beliefs That Will Affect Care: None Current Living Situation: Spouse Feels Safe at Home: Yes Smoking Status: Former smoker Second Hand Exposure: No ; Hx Alcohol Use: No Hx Substance Use: No Review of Systems See HPI for pertinent positives & negatives. and A total of 10 systems reviewed and were otherwise negative Physical Exam Vital Signs Vital Signs - 24 hr 06/14/19 12:17 06/14/19 12:21 06/14/19 12:30 Temperature 36.7 C Temperature Source Oral Sepsis Recent Fever Within 48 Hours No Sepsis New/Unexplained Change in Mental Status No Sepsis Action Taken by Nursing No Action Required Pulse Rate 121 H 111 H Pulse Rate [Right Apical] Pulse Rate from SpO2 Sensor 103 H Pulse Rhythm Respiratory Rate 25 H Respiratory Effort / Characteristics Spontaneous Labored Short of Breath SOB on Exertion Short of Breath Respiratory Depth Deep Respiratory Pattern Tachypnea Blood Pressure 135/66 Blood Pressure Mean 89 Blood Pressure Position Sitting Pulse Oximetry 90 84 L 92 Oxygen Delivery Method Oxymask Nasal Cannula Oxygen Flow Rate 7 4 06/14/19 12:40 06/14/19 12:45 06/14/19 12:50 Temperature Temperature Source Sepsis Recent Fever Within 48 Hours Sepsis New/Unexplained Change in Mental Status Sepsis Action Taken by Nursing Pulse Rate 99 H 104 H 122 H Pulse Rate [Right Apical] Pulse Rate from SpO2 Sensor 92 H 106 H Pulse Rhythm Irregular Respiratory Rate 38 H 34 H 38 H Respiratory Effort / Characteristics Respiratory Depth Respiratory Pattern Blood Pressure 108/80 Blood Pressure Mean 89 Blood Pressure Position Pulse Oximetry 96 93 92 Oxygen Delivery Method Oxymask Oxygen Flow Rate 7 06/14/19 12:58 06/14/19 13:00 06/14/19 13:15 Temperature Temperature Source Sepsis Recent Fever Within 48 Hours Sepsis New/Unexplained Change in Mental Status Sepsis Action Taken by Nursing Pulse Rate 106 H 102 H Pulse Rate [Right Apical] 115 H Pulse Rate from SpO2 Sensor 92 H 85 Pulse Rhythm Respiratory Rate 22 43 H 29 H Respiratory Effort / Characteristics Non-Labored Spontaneous Respiratory Depth Respiratory Pattern Blood Pressure Blood Pressure Mean Blood Pressure Position Pulse Oximetry 95 97 97 Oxygen Delivery Method Oxymask Oxygen Flow Rate 9 GENERAL: Patient is in mild distress. HEENT: No acute trauma, normocephalic atraumatic, mucous membranes moist, no nasal congestion, no scleral icterus. NECK: No stridor, no adenopathy, no meningismus, trachea is midline. LUNGS: Crackles at both bases, primarily on the right, no wheezing, no obvious respiratory distress. HEART: Tachycardic, irregular rhythm, no murmurs. ABDOMEN: Soft, nontender, bowel sounds positive, no hernias, no peritonitis. EXTREMITIES: No cyanosis or edema, full range of motion of all the joints without pain or difficulty, no signs for acute trauma. NEUROLOGIC: Oriented x 3, no acute motor or sensory deficits, no focal weakness. SKIN: No rash, no jaundice, no diaphoresis. Course 1227: The patient was evaluated in room A2 and a complete history and physical were performed. 1256: The patient is 96% with O2 supplementation. 1320: I [facility] the [facility] The patient will be further evaluated. Consultations Consultation #1: I discussed the patients case with [facility]. The patient will be further evaluated. Time: 13:20 Administered Medications Diltiazem HCl 125 mg/ Dextrose 125 mls @ 5 mls/hr IV .Q24H [facility]; Protocol Stop: 07/14/19 15:29 Last Admin: 06/14/19 17:04 Dose: Not Given Documented by: [id number] Ioversol (Optiray 320 125ml) 89 ml IV ONCE PRN PRN Reason: Interaction Checking Stop: 06/18/19 14:37 Last Admin: 06/14/19 14:38 Dose: 89 ml Documented by: [id number] Discontinued Medications Albuterol (Duoneb) 3 ml INH NOW STA Stop: 06/14/19 12:41 Last Admin: 06/14/19 12:56 Dose: 3 ml Documented by: [id number] Diltiazem HCl (Cardizem) 10 mg IV NOW STA Stop: 06/14/19 12:41 Last Admin: 06/14/19 12:50 Dose: 10 mg Documented by: [id number] Cosigned by: [id number] Diltiazem HCl 125 mg/ Dextrose 125 mls @ 0 mls/hr IV .Q0M ST[facility]; Protocol Stop: 06/14/19 12:41 Last Admin: 06/14/19 13:06 Dose: 5 mg/hr, 5 mls/hr Documented by: [id number] Cosigned by: [id number] Cefepime HCl 2,000 mg/ Syringe 20 mls @ 5 mls/min IV NOW STA Stop: 06/14/19 13:08 Last Admin: 06/14/19 14:11 Dose: 5 mls/min Documented by: [id number] Methylprednisolone (Solumedrol) 60 mg IV NOW STA Stop: 06/14/19 14:09 Last Admin: 06/14/19 14:24 Dose: 60 mg Documented by: [id number] Medical Decision Making Differential Diagnosis The differential diagnoses considered include pneumonia, CHF, rapid atrial fibrillation, PE, electrolyte abnormality, anemia, bronchitis and TX. Medical Records Attestation: I reviewed the patient's medical records. Home Medications Current Medication List: was personally reviewed by me Laboratory Data Attestation: I reviewed the patient's lab results. Result diagrams: 06/14/19 12:45 06/14/19 13:10 Lab Results 06/14/19 06/14/19 06/14/19 Range/Units 12:45 12:45 13:10 WBC 11.80 H (4.8-10.8) K/uL RBC 4.86 (4.7-6.1) M/uL Hgb 14.3 (14.0-18.0) g/dL Hct 40.9 L (42-52) % MCV 84.2 (80-100) fL MCH 29.4 (25-34) pg MCHC 35.0 (32-36) g/dL RDW Std Deviation 39.0 (36.4-46.3) fL RDW Coeff of Hermelinda 12.9 (11.5-14.5) % Plt Count 416 H (130-400) K/uL MPV 9.7 (7.4-10.4) fL Immature Gran % (Auto) 0.4 % Neut % (Auto) 84.2 % Lymph % (Auto) 6.9 % Luna % (Auto) 8.0 % Eos % (Auto) 0.3 % Baso % (Auto) 0.2 % Immature Gran # (Auto) 0.05 H (0.00-0.02) K/uL Neut # (Auto) 9.94 H (1.4-6.5) K/uL Lymph # (Auto) 0.81 L (1.2-3.4) K/uL Luna # (Auto) 0.94 H (0.11-0.59) K/uL Eos # (Auto) 0.04 (0-0.5) K/uL Baso # (Auto) 0.02 (0-0.2) K/uL PT Cancelled INR Cancelled APTT Cancelled PTT Ratio Cancelled Sodium (136-145) mmol/L Potassium (3.5-5.1) mmol/L Chloride (98-107) mmol/L Carbon Dioxide (21-32) mmol/L Anion Gap (3-11) BUN (7-18) mg/dl Creatinine (0.6-1.4) mg/dl Est Cr Clr Drug Dosing ml/min Est GFR ( Amer) Est GFR (Non-Af Amer) BUN/Creatinine Ratio (10-20) Glucose (70-99) mg/dl Lactate (0.4-2.0) mmol/L Calcium (8.5-10.1) mg/dl Magnesium (1.8-2.4) mg/dl Total Bilirubin (0.2-1) mg/dl AST (15-37) U/L ALT (12-78) U/L Alkaline Phosphatase (45-117) U/L Troponin I Cancelled NT-Pro-B Natriuret Pep (0-1800) pg/ml Total Protein (6.4-8.2) gm/dl Albumin (3.4-5.0) gm/dl Globulin (2.5-4.0) gm/dl Albumin/Globulin Ratio (0.9-2) Procalcitonin (0-0.5) ng/ml 06/14/19 06/14/19 06/14/19 Range/Units 13:10 13:10 13:19 WBC (4.8-10.8) K/uL RBC (4.7-6.1) M/uL Hgb (14.0-18.0) g/dL Hct (42-52) % MCV (80-100) fL MCH (25-34) pg MCHC (32-36) g/dL RDW Std Deviation (36.4-46.3) fL RDW Coeff of Hermelinda (11.5-14.5) % Plt Count (130-400) K/uL MPV (7.4-10.4) fL Immature Gran % (Auto) % Neut % (Auto) % Lymph % (Auto) % Luna % (Auto) % Eos % (Auto) % Baso % (Auto) % Immature Gran # (Auto) (0.00-0.02) K/uL Neut # (Auto) (1.4-6.5) K/uL Lymph # (Auto) (1.2-3.4) K/uL Luna # (Auto) (0.11-0.59) K/uL Eos # (Auto) (0-0.5) K/uL Baso # (Auto) (0-0.2) K/uL PT 24.9 H INR 2.6 H APTT 45.0 H PTT Ratio 1.7 Sodium 136 (136-145) mmol/L Potassium 4.3 (3.5-5.1) mmol/L Chloride 102 (98-107) mmol/L Carbon Dioxide 27 (21-32) mmol/L Anion Gap 7.0 (3-11) BUN 28 H (7-18) mg/dl Creatinine 1.12 (0.6-1.4) mg/dl Est Cr Clr Drug Dosing 47.5 ml/min Est GFR ( Amer) 70.5 Est GFR (Non-Af Amer) 60.8 BUN/Creatinine Ratio 24.6 H (10-20) Glucose 117 H (70-99) mg/dl Lactate 2.5 H* (0.4-2.0) mmol/L Calcium 9.1 (8.5-10.1) mg/dl Magnesium 2.2 (1.8-2.4) mg/dl Total Bilirubin 1.4 H (0.2-1) mg/dl AST 65 H (15-37) U/L ALT 96 H (12-78) U/L Alkaline Phosphatase 180 H (45-117) U/L Troponin I < 0.015 NT-Pro-B Natriuret Pep 806 (0-1800) pg/ml Total Protein 7.9 (6.4-8.2) gm/dl Albumin 2.6 L (3.4-5.0) gm/dl Globulin 5.3 H (2.5-4.0) gm/dl Albumin/Globulin Ratio 0.5 L (0.9-2) Procalcitonin (0-0.5) ng/ml 06/14/19 Range/Units 13:19 WBC (4.8-10.8) K/uL RBC (4.7-6.1) M/uL Hgb (14.0-18.0) g/dL Hct (42-52) % MCV (80-100) fL MCH (25-34) pg MCHC (32-36) g/dL RDW Std Deviation (36.4-46.3) fL RDW Coeff of Hermelinda (11.5-14.5) % Plt Count (130-400) K/uL MPV (7.4-10.4) fL Immature Gran % (Auto) % Neut % (Auto) % Lymph % (Auto) % Luna % (Auto) % Eos % (Auto) % Baso % (Auto) % Immature Gran # (Auto) (0.00-0.02) K/uL Neut # (Auto) (1.4-6.5) K/uL Lymph # (Auto) (1.2-3.4) K/uL Luna # (Auto) (0.11-0.59) K/uL Eos # (Auto) (0-0.5) K/uL Baso # (Auto) (0-0.2) K/uL PT INR APTT PTT Ratio Sodium (136-145) mmol/L Potassium (3.5-5.1) mmol/L Chloride (98-107) mmol/L Carbon Dioxide (21-32) mmol/L Anion Gap (3-11) BUN (7-18) mg/dl Creatinine (0.6-1.4) mg/dl Est Cr Clr Drug Dosing ml/min Est GFR ( Amer) Est GFR (Non-Af Amer) BUN/Creatinine Ratio (10-20) Glucose (70-99) mg/dl Lactate (0.4-2.0) mmol/L Calcium (8.5-10.1) mg/dl Magnesium (1.8-2.4) mg/dl Total Bilirubin (0.2-1) mg/dl AST (15-37) U/L ALT (12-78) U/L Alkaline Phosphatase (45-117) U/L Troponin I NT-Pro-B Natriuret Pep (0-1800) pg/ml Total Protein (6.4-8.2) gm/dl Albumin (3.4-5.0) gm/dl Globulin (2.5-4.0) gm/dl Albumin/Globulin Ratio (0.9-2) Procalcitonin 0.15 (0-0.5) ng/ml Imaging Data Radiologist's Impression: Radiology results as stated below per my review and the radiologist's interpretation: XR chest 1V portable CLINICAL HISTORY: Dyspnea. COMPARISON STUDY: PET/CT March 03, 2016. Chest radiograph June 03, 2019. FINDINGS: Lung volumes are diminished. There are small bilateral pleural effusions. Bilateral airspace opacities have progressed since exam of June 03, 2019. Cardiomegaly is noted. There is no pneumothorax. IMPRESSION: 1. Progression of bilateral airspace opacities which favor pneumonia. Radiographic follow-up to ensure resolution is recommended. 2. Small bilateral pleural effusions. Electronically signed by: Ronal Valle M.D. 06/14/2019 1:[address] ANGIOGRAPHY OF THE CHEST, PULMONARY EMBOLUS PROTOCOL CLINICAL HISTORY: Shortness of breath. COMPARISON STUDY: Chest CT July 14, 2011 and chest radiograph performed earlier today. TECHNIQUE: Following IV administration of 89 mL of Optiray-320, helical axial images of the chest were obtained utilizing the pulmonary embolus protocol. Maximal intensity projections and sagittal and coronal reformats were viewed on an independent 3D workstation. IV contrast was administered without complication. Automated exposure control was utilized for the study. A dose lowering technique was utilized adhering to the principles of ALARA. CT DOSE: 249.01 mGy.cm FINDINGS: No pulmonary embolus is identified. The heart is moderately enlarged. There is no pericardial effusion. No enlarged thoracic lymph nodes are present. The central airways are patent. Extensive consolidation is noted throughout both lungs, greater within the right lung. There is no cavitation. Trace left pleural effusion is noted. A small partially loculated right pleural effusion is noted. There is no pneumothorax. No central obstructing mass is identified. Bony thorax is unremarkable. Liver surface is slightly lobulated. IMPRESSION: 1. No pulmonary embolus identified. 2. Extensive bilateral consolidation, greater within the right lung. The findings favor multifocal pneumonia. 3. Small, partially loculated right pleural effusion. Sterility of this effusion cannot be assessed by CT. Trace left pleural effusion. 4. Moderate cardiomegaly. Electronically signed by: Ronal Valle M.D. 06/14/2019 2:53 PM ECG Data Attestation: I personally reviewed and interpreted this ECG as follows: Indication: SOB/dyspnea Rate (beats per minute): 122 Rhythm: atrial fibrillation Findings: + LBBB; no PVC and no ST elevation (No concerning ST elevation) Blood Pressure Blood Pressure Findings: Normal blood pressure Blood Pressure Disposition: did not require urgent referral MDM Narrative There is a mild leukocytosis, this could be consistent with infection. No anemia. INR is 2.6, consistent with his Coumadin use. No significant electrolyte abnormality or kidney failure. Lactic acid level was somewhat elevated at 2.3, this could be consistent with infection. Liver enzyme testing did show some slight elevations, the cause is unclear but the numbers were not critical. EKG showed a rapid A. fib, no acute ischemia by EKG. Cardiac enzyme testing x1 is not consistent with acute cardiac injury. Chest film shows what appears to be bilateral infiltrates, worse on the right. No pneumothorax. BNP was not elevated. Blood cultures are pending. Chest CT shows bilateral infiltrates consistent with pneumonia, no PE. The patient was aggressively managed. He presents hypoxic, tachycardic and in rapid A. fib. He received an IV diltiazem bolus and then was placed on a diltiazem drip. He was given a DuoNeb, he received IV cefepime as antibiotic coverage. The patient is improving with the above treatment, the heart rate is now in the 90s, he is no longer hypoxic. He seems in no distress and seems comfortable. I spoke to the patient, I talked with the case managers. The patient requires hospitalization. His pneumonia has worsened. The on-call hospitalist was consulted. Impression & Plan Hypoxia, Pneumonia, Rapid atrial fibrillation Critical Care Time Critical Care Time: Yes Total Critical Care Time: 50 I have personally spent 50 minutes of critical care time in the direct management of this patient. This includes bedside care, interpretation of diagnostic studies, and testing, discussion with consultants, patient, and family members, and other required patient management activities. This 50 minutes is in excess of all separately billable procedures. Discharge Plan Visit Data *Final* Discharge Date/Time: 06/14/19 14:25 Chief Complaint: Respiratory Problems Stated Complaint: RESP FAILURE, A FIB ED Provider: Reza Zhong Discharge Problem: Hypoxia, Pneumonia, Rapid atrial fibrillation Patient Disposition: Admitted As Inpatient Discharge Instructions Interventions: ED Discharge Assessment Last Done: 06/14/19 14:25 The scribe's documentation has been prepared under my direction and personally reviewed by me in its entirety. I confirm that the note above accurately reflects all work, treatment, procedures, and medical decision making performed by me.
[2019-06-14] MEDS: dilTIAZem HCl 125 MG in DEXTROSE 5% 100 ML IV SCH (17:04)
[2019-06-14] MEDS: LEVALBUTEROL 1.25MG/0.5ML NEB NEB SCH (18:51)
[2019-06-14] MEDS: guaiFENesin 600 MG TABCR PO SCH (20:52)
[2019-06-15] MEDS: LEVALBUTEROL 1.25MG/0.5ML NEB NEB SCH ×4 (00:23→19:23)
[2019-06-15 02:32] LABS: Base Excess ABG -2.6 mEq/L (-9-1.8); HCO3 ABG 20 mmol/L (19-24); Oxygen Saturation ABG 92.2 % (90-95); PCO2 ABG 27 mmHg (35-46); PO2 ABG 70 mm/Hg (80-95); pH ABG 7.49 (7.35-7.45)
[2019-06-15 02:33] LABS: Allen Test POS (Pos)
[2019-06-15] MEDS: CEFEPIME 2,000 MG in SYRINGE 0 ML IV SCH ×2 (03:02→14:05)
--- NOTE | 2019-06-15 05:23 | Progress Note ---
Date of Service June 15, 2019 I received a page earlier this morning that the patient was having decreased oxygen saturations despite being on 15 L oxygen mask. In brief review of his chart, patient was admitted yesterday for pneumonia. His CT chest was more consistent with multifocal pneumonia rather than fluid overload. He had been placed on a Cardizem drip for A. fib as well. Saw patient at bedside. He had some mild tachypnea but denied any chest pain, overt shortness of breath, or other immediate concerns. Lungs sounded coarse throughout. Plan: - Obtained an ABG. This appears consistent with a respiratory alkalosis and no CO2 retention. Therefore transitioned patient to high flow nasal cannula oxygen. - Checked chest x-ray as a precaution. It appears roughly unchanged from the x- ray obtained the day prior. Formal radiology read is pending. Uli Delaney, PGY3 Overnight call Results & Data Vital Signs (Past 12 Hours) Vital Signs Temp Pulse Pulse Pulse Pulse Resp BP 06/15/19 05:00 75 28 H 98/61 L 06/15/19 04:00 75 31 H 101/59 L 06/15/19 03:32 36.7 C 79 30 H 06/15/19 03:11 70 25 H 06/15/19 03:00 79 06/15/19 02:03 77 06/15/19 01:11 72 06/15/19 00:23 70 25 H 06/15/19 00:00 36.5 C 68 24 06/14/19 22:20 75 06/14/19 19:35 36.6 C 98 H 19 06/14/19 18:53 95 H 20 BP BP Pulse Ox 06/15/19 05:00 97 06/15/19 04:00 95 06/15/19 03:32 99/59 L 96 06/15/19 03:11 93 06/15/19 03:00 98/62 L 06/15/19 02:03 100/63 06/15/19 01:11 96/56 L 06/15/19 00:23 90 06/15/19 00:00 101/60 89 L 06/14/19 22:20 06/14/19 19:35 97/53 L 91 06/14/19 18:53 91
[2019-06-15] MEDS: dilTIAZem HCl 125 MG in DEXTROSE 5% 100 ML IV SCH (05:55)
[2019-06-15 06:20] LABS: Hematocrit (blood only) 35.9 % (42-52); Hemoglobin 12.5 g/dL (14.0-18.0); Mean Corpuscular Hemoglobin 29.1 pg (25-34); Mean Corpuscular Hgb Conc 34.8 g/dL (32-36); Mean Corpuscular Volume 83.5 fL (80-100); Mean Platelet Volume 9.7 fL (7.4-10.4); Platelet Count 376 K/uL (130-400); RDW Standard Deviation 39.1 fL (36.4-46.3); White Blood Count 10.42 K/uL (4.8-10.8)
[2019-06-15 06:54] LABS: Alanine Aminotransferase 79 U/L (12-78); Albumin Level 2.4 gm/dl (3.4-5.0); Aspartate Aminotransferase 39 U/L (15-37); BUN Creatinine Ratio 31.6 (10-20); Blood Urea Nitrogen 37 mg/dl (7-18); Calcium 8.5 mg/dl (8.5-10.1); Carbon Dioxide 23 mmol/L (21-32); Chloride 104 mmol/L (98-107); Creatinine Clr Calc Pharmacy 45.5 ml/min; Est GFR (African American) 66.9; Est GFR (Non-African American) 57.7; Glucose 172 mg/dl (70-99); Potassium 3.7 mmol/L (3.5-5.1); Sodium 136 mmol/L (136-145)
[2019-06-15 06:59] LABS: Albumin Globulin Ratio 0.5 (0.9-2); Alkaline Phosphatase 145 U/L (45-117); Bilirubin,Total 1.1 mg/dl (0.2-1); Globulin 4.4 gm/dl (2.5-4.0); Total Protein 6.8 gm/dl (6.4-8.2); Troponin I < 0.015 ng/ml (0-0.045)
--- NOTE | 2019-06-15 07:06 | XRay Report ---
SINGLE VIEW CHEST CLINICAL HISTORY: Hypoxia. FINDINGS: An AP, portable, upright chest radiograph is compared to chest x-ray and chest CT dated 05/27. The examination is degraded by portable technique and patient rotation. The heart is enlarge d and there is atherosclerotic calcification of the thoracic aorta. The pulmonary vasculature is nonc ongested. Again seen is multifocal airspace consolidation, right lung greater than left. Small pleura l effusions are noted. No pneumothorax is seen. The skeletal structures are osteopenic. The bony thor ax is grossly intact. Degenerative change is seen throughout the thoracic spine. A surgical anchor is noted in the right humeral head. IMPRESSION: 1. No significant change from yesterday. 2. Multifocal airspace consolidation and small pleural effusions as above. 3. Cardiomegaly without radiographic evidence of congestive failure. Electronically signed by: Reza Sotelo M.D. 06/15/2019 7:04 AM
[2019-06-15] MEDS: guaiFENesin 600 MG TABCR PO SCH ×2 (07:40→19:56)
[2019-06-15] MEDS: TAMSULOSIN HCL 0.4 MG CAP PO SCH (11:35)
[2019-06-15] MEDS: PANTOprazole 40 MG TAB PO SCH (11:35)
[2019-06-15] MEDS: IPRATROPIUM BROMIDE NEB SOLN 0.02% 2.5 ML VIAL NEB SCH ×2 (15:26→19:23)
[2019-06-15] MEDS ORDERED: WARFARIN SOD 4 MG TAB PO SCH (16:00)
--- NOTE | 2019-06-15 16:12 | Family Medicine Progress Note ---
Date of Service June 15, 2019 Assessment & Plan (1) PNA (pneumonia): 83 yo M with PMH Afib, HTN readmitted after recent hospitalization for PNA (06/03-06/07) and d/c on Augmentin. Represents with ongoing fatigue and SOB found to have increased opacities at the R lung base. HAP/Acute Hypoxic Resp Failure -CTA: Extensive bilateral consolidation, greater within the right lung. The findings favor multifocal pneumonia. Additionally, small, partially loculated right pleural effusion -Cont monotherapy with IV cefepime. No current need for double gram neg coverage -Blood/Sputum culture pending -Incentive spirometry, flutter, Mucinex, Tessalon Perles, levalbuterol nebs -MRSA neg -cont HFNC -Pulm consulted: did bedside U/S and reassuring, no need for thoracentesis at present -OMT performed: inhibitory pressure, BLT, direct myofascial on thoracics. Pt tolerated well Atrial fibrillation with RVR - Continue cardizem gtt -Will transition to home Cardizem 360 mg p.o. moving forward -Cont on tele -cont warfarin 4mg -ECHO: LV systolic fxn is normal. No regional wall motion abnormalities. EF 50- 55%. No significant valvular pathology HTN -holding home lisinopril 5 mg 2/2 hypotension FEN/GI: HH Diet DVT Prophylaxis: Warfarin FULL CODE Disposition: Patient from home, likely to remain in the hospital for 2 days. - PT/OT consulted Supervising Physician Co-Signing Physician Notes I personally examined the patient and verified all crockett points of history and exam, discussed case, and agree with decision making with Dr Banda. Feeling better. Feels like he is breathing easier. Still quite fatigued with significant dyspnea on exertion. No productive cough yet. Updated patient and family on situation. Case discussed personally with patient's primary care physician as well. Case discussed with pulmonary PA. Input appreciated. Vitals noted, in general he is awake and alert pleasant fatigued appearing but otherwise no distress. HEENT normocephalic atraumatic mucous membranes moist. Breathing unlabored no accessory muscle use, diffuse rales throughout the right lung and throughout the lower half of the left lung, no wheezing good effort. Osteopathic structural exam shows paraspinal muscle hypertonicity with decreased range of motion, inhibitory pressure/direct myofascial/balanced ligamentous tension done with the Thoracics as well as ribs with intercostal showing decreased range of motion as well, myself on the left side, Dr. Banda on the right side with my supervision, patient tolerated well, improvement in tissue texture. Healthcare associated pneumoniahis course of illness seems to been that of having a community-acquired pneumonia, improving with that, then getting worse with a healthcare associated pneumonia prompting the readmission. His MRSA nares is negative, therefore continue cefepime for coverage of presumed gram- negative's. Clinically at the bedside he looks stable and improving, although certainly still has a significant oxygen requirement. Acute hypoxic respiratory failure in setting of presumed gram negative HAP-as above, continue high flow nasal cannula and supportive care. Pleural effusionwhile on CT somewhat concerning for the possibility of a loculated effusion/empyema, bedside ultrasound per pulmonary was quite reassuring. Continue current antibiotics, supportive care, periodic reassessment. Somatic dysfunction rib and thoracic regionOMT as above. DVT prophylaxisanticoagulation Subjective 83 yo M found in bed in NAD. Overnight reports that patient was having decreased oxygen saturations despite being on 15 L oxygen mask, was put on HFNC. Notes feeling overall improved, breathing improved. Ongoing cough. Denies CP, SOB, palpitations. No other acute concerns or complaints. Review of Systems Review of Systems: All systems reviewed & are unremarkable except as noted in HPI & below Physical Exam Constitutional: WD/WN, vitals as above Eyes: PERRL, conjunctivae normal, anicteric sclerae Respiratory: normal respiratory effort; no respiratory distress and no labored breathing Auscultation: + crackles Cardiovascular: Rate/Rhythm: + irregularly irregular Gastrointestinal (Abdomen): normal bowel sounds, soft, nontender, no hepatosplenomegaly Skin: no rashes, warm and dry Psychiatric: A+Ox3, euthymic affect Results & Data Vital Signs (Past 12 Hours) Vital Signs Temp Pulse Pulse Pulse Resp BP BP 06/15/19 15:56 108 H 06/15/19 15:47 36.6 C 87 33 H 06/15/19 15:07 103 H 98/62 L 06/15/19 15:03 81 20 06/15/19 14:27 110 H 06/15/19 14:15 130 H 06/15/19 13:40 96 H 22 06/15/19 13:04 06/15/19 11:47 36.4 C L 84 37 H 06/15/19 08:00 72 06/15/19 07:56 36.6 C 80 29 H 06/15/19 07:01 71 20 06/15/19 06:59 71 20 06/15/19 06:01 72 34 H 06/15/19 06:00 78 29 H 107/62 06/15/19 05:00 75 28 H 98/61 L BP Pulse Ox Pulse Ox 06/15/19 15:56 06/15/19 15:47 93/58 L 94 06/15/19 15:07 06/15/19 15:03 92 06/15/19 14:27 116/64 06/15/19 14:15 107/71 06/15/19 13:40 94 06/15/19 13:04 100 06/15/19 11:47 114/56 L 89 L 06/15/19 08:00 06/15/19 07:56 104/58 L 84 L 06/15/19 07:01 97 06/15/19 06:59 97 06/15/19 06:01 95 06/15/19 06:00 95 06/15/19 05:00 97 Laboratory Results Laboratory Results - last 24 hr 06/14/19 06/14/19 06/14/19 12:45 13:10 15:58 WBC 11.80 H RBC Hgb 14.3 Hct MCV 84.2 MCH MCHC 35.0 RDW Std Deviation RDW Coeff of Hermelinda Plt Count 416 H MPV 9.7 ABG pH ABG pCO2 ABG pO2 ABG HCO3 ABG O2 Saturation ABG Base Excess Davidson Test Barometric Pressure Oxygen Given Sodium 136 Potassium 4.3 Chloride Carbon Dioxide Anion Gap BUN 28 H Creatinine 1.12 Est Cr Clr Drug Dosing Est GFR ( Amer) Est GFR (Non-Af Amer) BUN/Creatinine Ratio Glucose Lactate 2.3 H* Calcium 9.1 Total Bilirubin 1.4 H AST ALT Alkaline Phosphatase 180 H Troponin I Total Protein 7.9 Albumin Globulin Albumin/Globulin Ratio Nasal Screen MRSA (PCR) 06/14/19 06/14/19 06/15/19 17:05 21:29 02:09 WBC RBC Hgb Hct MCV MCH MCHC RDW Std Deviation RDW Coeff of Hermelinda Plt Count MPV ABG pH 7.49 H ABG pCO2 27 L ABG pO2 70 L ABG HCO3 20 ABG O2 Saturation 92.2 ABG Base Excess -2.6 Davidson Test POS Barometric Pressure 732.6 Oxygen Given 15 L Sodium Potassium Chloride Carbon Dioxide Anion Gap BUN Creatinine Est Cr Clr Drug Dosing Est GFR ( Amer) Est GFR (Non-Af Amer) BUN/Creatinine Ratio Glucose Lactate Calcium Total Bilirubin AST ALT Alkaline Phosphatase Troponin I < 0.015 Total Protein Albumin Globulin Albumin/Globulin Ratio Nasal Screen MRSA (PCR) Negative 06/15/19 06/15/19 05:28 05:28 WBC 10.42 RBC 4.30 L Hgb 12.5 L Hct 35.9 L MCV 83.5 MCH 29.1 MCHC 34.8 RDW Std Deviation 39.1 RDW Coeff of Hermelinda 13.0 Plt Count 376 MPV 9.7 ABG pH ABG pCO2 ABG pO2 ABG HCO3 ABG O2 Saturation ABG Base Excess Davidson Test Barometric Pressure Oxygen Given Sodium 136 Potassium 3.7 Chloride 104 Carbon Dioxide 23 Anion Gap 9.0 BUN 37 H Creatinine 1.17 Est Cr Clr Drug Dosing 45.5 Est GFR ( Amer) 66.9 Est GFR (Non-Af Amer) 57.7 BUN/Creatinine Ratio 31.6 H Glucose 172 H Lactate Calcium 8.5 Total Bilirubin 1.1 H AST 39 H ALT 79 H Alkaline Phosphatase 145 H Troponin I < 0.015 Total Protein 6.8 Albumin 2.4 L Globulin 4.4 H Albumin/Globulin Ratio 0.5 L Nasal Screen MRSA (PCR) Medications Administered Current Inpatient Medications Acetaminophen (Tylenol) 650 mg PO Q4H PRN PRN Reason: Moderate Pain Stop: 07/14/19 13:23 Guaifenesin (Mucinex) 1,200 mg PO Q12 SHARRI Stop: 07/14/19 20:59 Last Admin: 06/15/19 07:40 Dose: 1,200 mg Documented by: Diltiazem HCl 125 mg/ Dextrose 125 mls @ 5 mls/hr IV .Q24H SHARRI; Protocol Stop: 07/14/19 15:29 Last Titration: 06/15/19 15:07 Dose: 5 mg/hr, 5 mls/hr Documented by: Cefepime HCl 2,000 mg/ Syringe 12.5 mls @ 5 mls/min IV Q12H SHARRI; Protocol Stop: 06/21/19 01:59 Last Admin: 06/15/19 14:05 Dose: 5 mls/min Documented by: Ioversol (Optiray 320 125ml) 89 ml IV ONCE PRN PRN Reason: Interaction Checking Stop: 06/18/19 14:37 Last Admin: 06/14/19 14:38 Dose: 89 ml Documented by: Ipratropium Norman (Atrovent 0.02% 0.5mg/2.5ml) 0.5 mg NEB Q6R [facility] Stop: 07/15/19 12:59 Last Admin: 06/15/19 15:26 Dose: Not Given Documented by: Levalbuterol HCl (Xopenex 1.25mg/0.5ml Neb) 1.25 mg NEB Q6R [facility] Stop: 07/14/19 18:59 Last Admin: 06/15/19 13:40 Dose: 1.25 mg Documented by: Ondansetron HCl (Zofran) 4 mg IV Q4H PRN PRN Reason: Nausea And Vomiting Stop: 07/14/19 13:23 Pantoprazole Sodium (Protonix) 40 mg PO DAILY [facility] Stop: 07/15/19 10:44 Last Admin: 06/15/19 11:35 Dose: 40 mg Documented by: Tamsulosin HCl (Flomax) 0.4 mg PO DAILY [facility] Stop: 07/15/19 10:44 Last Admin: 06/15/19 11:35 Dose: 0.4 mg Documented by: Warfarin Sodium (Coumadin) 4 mg PO DAILY@1600 [facility] Stop: 07/15/19 15:59 PG Care Time/CCT Total # of Minutes Spent Total Time Spent with Patient: Total time spent is greater than 50% in coordination of care (as documented) at patient's floor/unit and/or counseling patient: Resident Activity Tracking Resident Involvement: Resident Care Provided Care Provided: Adult Hospital Medicine (1) PNA (pneumonia) Laterality: bilateral Lung location: lower lobe of lung Pneumonia type: due to unspecified organism Qualified Code(s): J18.1 - Lobar pneumonia, unspecified organism
[2019-06-15] MEDS ORDERED: VANCOMYCIN CONSULT ACTIVE PRN (16:58)
--- NOTE | 2019-06-15 17:20 | Pulmonary Consultation ---
Date of Consultation June 15, 2019 Assessment & Plan (1) PNA (pneumonia): Is a multifocal pneumonia as seen with bilateral consolidation on CT scan of the chest Patient is receiving adequate antibiotic with cefepime MRSA screen of the nares is negative No prior history of multidrug-resistant organisms Patient does have trace pleural effusions. Was able to ultrasound at bedside and it does not appear to have significant loculation and no clear approach for thoracentesis We will continue to follow patient clinically Agree with continued antibiotics Blood cultures negative for growth to date x2 Urine culture with Klebsiella pneumoniae Follow clinically Laterality: bilateral Lung location: lower lobe of lung Pneumonia type: due to unspecified organism Qualified Code(s): J18.1 - Lobar pneumonia, unspecified organism (2) Hypoxia: Patient appears to have multifocal pneumonia as listed above. Continue cefepime Wean supplemental oxygen as tolerated If no improvement, may require bronchoscopy for further evaluation of pneumonia Continue to treat as hospital-acquired pneumonia (3) Atrial fibrillation with RVR: Patient currently anticoagulated with Coumadin with a supratherapeutic INR Continue diltiazem Currently rate controlled Continue to follow on telemetry (4) DVT prophylaxis: Patient currently anticoagulated for atrial fibrillation with a therapeutic INR of 2.6 Ambulate as tolerated Thank you for including us in the care of this patient. We will continue to follow along with you. Please refer to Dr. Rivera's addendum for further recommendations. Supervising Physician Co-Signing Physician Notes Patient is seen and examined with PA-C. Patient is on high flow nasal cannula. He appears to have multifocal pneumonia. Continue broad-spectrum antibiotics. I suspect that given his advanced age and degree of his infiltrates he will take an extended period of time to see improvement. He will likely need supplemental oxygen upon discharge, but he is nowhere near ready for discharge at this present time. The pleural effusions do not appear to be loculated and there is no indication for thoracentesis at this present time. History of Present Illness Attending Physician: Gerald Rodríguez DO History of Present Illness Attending: Dr. Rivera This is an 83-year-old male that was previous admitted to the hospital and discharged. Since the time of his discharge patient states he has been "played out". He has a 3 acre property and maintains a grass and cuts firewood typically. He has not been able to do anything other than sit on the porch. He presented to his primary care physician's office for hospital follow-up due to shortness of breath. The physician drove the patient to the emergency room and his POV and the patient was admitted for for further follow-up. Imaging shows a consolidative process in the right lower lobe. There is no evidence of loculated effusion. Bedside ultrasound was completed and showed minimal fluid and no evidence of loculation. Patient has been started on antibiotics and received levofloxacin and ceftriaxone in the emergency department. On inpatient he was converted to cefepime. Patient MRSA swab is negative. He has no history of multidrug-resistant organization. The patient denies any fever, chills, sweats, rigors. Has no significant sputum production. He has no hemoptysis reported. He denies any chest pain or tightness. No abdominal pain. No nausea or vomiting. He denies any diarrhea. Allergies Allergy/AdvReac Type Severity Reaction Status Date / Time codeine Allergy Unknown UNKNOWN Verified 06/03/19 17:36 Home Medications Home Medications Medication Instructions Recorded Confirmed Type lisinopril 5 mg PO DAILY 06/03/19 06/03/19 History omeprazole 20 mg PO DAILY 06/03/19 06/03/19 History tamsulosin 0.4 mg PO DAILY 06/03/19 06/03/19 History warfarin 4 mg PO UD 06/03/19 06/03/19 History diltiazem HCl 360 mg PO QAM #30 cap 06/07/19 Rx Patient History Medical History Vertigo (Chronic) Sleep apnea (Chronic) History of echocardiogram (Chronic) Heart murmur (Chronic) Family History Other No significant family history Social History Preferred Language: Greek Communication Ability: Effective 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 Pupils equal round reactive to light NOSE: No evidence of epistaxis MOUTH: No lesions or candidiasis NECK: Supple. No appreciation of stridor LUNGS: Significant decrease in breath sounds at right lower lobe. No bronchospasm. No rhonchi. HEART: Irregular, irregular with a rate in the 90s ABDOMEN: Soft, NT, ND, BS Present EXTREMITIES: No LE edema, pedal pulses intact NEURO: A&OX3. Pleasant. Talkative. No appreciation of focal deficits on brief exam Results & Data Vital Signs (Past 12 Hours) Vital Signs Temp Pulse Pulse Pulse Resp BP BP 06/15/19 15:56 108 H 06/15/19 15:47 36.6 C 87 33 H 06/15/19 15:07 103 H 98/62 L 06/15/19 15:03 81 20 06/15/19 14:27 110 H 06/15/19 14:15 130 H 06/15/19 13:40 96 H 22 06/15/19 13:04 06/15/19 11:47 36.4 C L 84 37 H 06/15/19 08:00 72 06/15/19 07:56 36.6 C 80 29 H 06/15/19 07:01 71 20 06/15/19 06:59 71 20 06/15/19 06:01 72 34 H 06/15/19 06:00 78 29 H 107/62 BP Pulse Ox Pulse Ox 06/15/19 15:56 06/15/19 15:47 93/58 L 94 06/15/19 15:07 06/15/19 15:03 92 06/15/19 14:27 116/64 06/15/19 14:15 107/71 06/15/19 13:40 94 06/15/19 13:04 100 06/15/19 11:47 114/56 L 89 L 06/15/19 08:00 06/15/19 07:56 104/58 L 84 L 06/15/19 07:01 97 06/15/19 06:59 97 06/15/19 06:01 95 06/15/19 06:00 95 Laboratory Results 06/15/19 05:28 06/15/19 05:[address] ANGIOGRAPHY OF THE CHEST, PULMONARY EMBOLUS PROTOCOL CLINICAL HISTORY: Shortness of breath. COMPARISON STUDY: Chest CT July 14, 2011 and chest radiograph performed earlier today. TECHNIQUE: Following IV administration of 89 mL of Optiray-320, helical axial images of the chest were obtained utilizing the pulmonary embolus protocol. Maximal intensity projections and sagittal and coronal reformats were viewed on an independent 3D workstation. IV contrast was administered without complication. Automated exposure control was utilized for the study. A dose lowering technique was utilized adhering to the principles of ALARA. CT DOSE: 249.01 mGy.cm FINDINGS: No pulmonary embolus is identified. The heart is moderately enlarged. There is no pericardial effusion. No enlarged thoracic lymph nodes are present. The central airways are patent. Extensive consolidation is noted throughout both lungs, greater within the right lung. There is no cavitation. Trace left pleural effusion is noted. A small partially loculated right pleural effusion is noted. There is no pneumothorax. No central obstructing mass is identified. Bony thorax is unremarkable. Liver surface is slightly lobulated. IMPRESSION: 1. No pulmonary embolus identified. 2. Extensive bilateral consolidation, greater within the right lung. The findings favor multifocal pneumonia. 3. Small, partially loculated right pleural effusion. Sterility of this effusion cannot be assessed by CT. Trace left pleural effusion. 4. Moderate cardiomegaly. Electronically signed by: Ronal Valle M.D. 06/14/2019 2:53 PM PG Care Time/CCT Total # of Minutes Spent Total Time Spent with Patient: Total time spent is greater than 50% in coordination of care (as documented) at patient's floor/unit and/or counseling patient: 60
[2019-06-15] MEDS ORDERED: VANCOMYCIN HCL 1,750 MG in SODIUM CHLORIDE 0.9% 500 ML IV ONE (18:00)
[2019-06-16] MEDS: LEVALBUTEROL 1.25MG/0.5ML NEB NEB SCH ×4 (01:25→20:07)
[2019-06-16] MEDS: IPRATROPIUM BROMIDE NEB SOLN 0.02% 2.5 ML VIAL NEB SCH ×4 (01:25→20:07)
[2019-06-16] MEDS: CEFEPIME 2,000 MG in SYRINGE 0 ML IV SCH ×2 (01:38→13:40)
[2019-06-16] MEDS ORDERED: VANCOMYCIN HCL 1,000 MG in SODIUM CHLORIDE 0.9% 250 ML IV SCH (04:00)
[2019-06-16] MEDS: dilTIAZem HCl 125 MG in DEXTROSE 5% 100 ML IV SCH (06:06)
[2019-06-16 07:32] LABS: Prothrombin Time 39.6 Seconds (9.0-12.0)
[2019-06-16 07:39] LABS: INR 4.3 (0.9-1.1)
[2019-06-16 07:40] LABS: Basophils # (auto) 0.01 K/uL (0-0.2); Hematocrit (blood only) 36.6 % (42-52); Hemoglobin 12.6 g/dL (14.0-18.0); Immature Granulocytes # (auto) 0.08 K/uL (0.00-0.02); Immature Granulocytes % (auto) 0.4 %; Lymphocytes # (auto) 0.85 K/uL (1.2-3.4); Mean Corpuscular Hemoglobin 29.2 pg (25-34); Mean Corpuscular Hgb Conc 34.4 g/dL (32-36); Mean Corpuscular Volume 84.7 fL (80-100); Mean Platelet Volume 9.8 fL (7.4-10.4); Monocytes # (auto) 1.03 K/uL (0.11-0.59); Monocytes % (auto) 4.8 %; Neutrophils # (auto) 19.36 K/uL (1.4-6.5); Neutrophils % (auto) 90.8 %; Platelet Count 425 K/uL (130-400); RDW Standard Deviation 39.6 fL (36.4-46.3); Red Blood Count 4.32 M/uL (4.7-6.1); White Blood Count 21.33 K/uL (4.8-10.8)
[2019-06-16 07:50] LABS: Albumin Level 2.3 gm/dl (3.4-5.0); BUN Creatinine Ratio 38.2 (10-20); Calcium 8.8 mg/dl (8.5-10.1); Creatinine Clr Calc Pharmacy 52.2 ml/min; Est GFR (Non-African American) 68.1; Potassium 4.2 mmol/L (3.5-5.1)
[2019-06-16 07:52] LABS: Albumin Globulin Ratio 0.5 (0.9-2); Bilirubin,Total 0.8 mg/dl (0.2-1); Globulin 4.6 gm/dl (2.5-4.0); Total Protein 6.9 gm/dl (6.4-8.2)
[2019-06-16] MEDS ORDERED: POLYETHYLENE (MIRALAX) 17 GM PACK PO PRN (08:12)
[2019-06-16] MEDS ORDERED: AZITHROMYCIN 500 MG in DEXTROSE 5% 250 ML IV SCH (09:00)
[2019-06-16] MEDS ORDERED: LISINOPRIL 5 MG TAB PO SCH (09:00)
[2019-06-16 09:08] LABS: iSTAT Allen Test Pass; iSTAT Arterial Blood Gas HCO3 21 meg/L (19-24); iSTAT Arterial Blood Gas pCO2 36 mmHg (35-46); iSTAT Arterial Blood Gas pH 7.38 (7.35-7.45); iSTAT Arterial Blood Gas pO2 65 mmHg (80-95); iSTAT Carbon Dioxide 22 mEq/l (24-31); iSTAT Site R Radial
--- NOTE | 2019-06-16 09:11 | XRay Report ---
XR chest 1V portable CLINICAL HISTORY: hypoxia COMPARISON STUDY: Chest CT June 14, 2019. Chest radiograph June 15, 2019. FINDINGS: There is no pneumothorax. Small right and trace left pleural effusions persist. Extensive b ilateral airspace opacities are again noted. The appearance of the chest is similar to prior exam. Ca rdiomediastinal silhouette is stable. Patient is mildly rotated. IMPRESSION: 1. No significant change in bilateral airspace opacities which favor extensive pneumonia. 2. Small right and trace left pleural effusions. Electronically signed by: Ronal Valel M.D. 06/16/2019 9:09 AM
[2019-06-16] MEDS ORDERED: LORazepam 0.5 MG/1 ML VIAL IV STA (09:28)
[2019-06-16] MEDS ORDERED: LORazepam 2 MG/4 ML VIAL ONE (09:33)
[2019-06-16] MEDS ORDERED: RAPID SEQUENCE INDUCTION BAG ONE (10:05)
[2019-06-16] MEDS ORDERED: NOREPINEPHRINE BITARTRATE 1 MG/ML 4 ML VIAL IV ONE (10:24)
[2019-06-16] MEDS ORDERED: PROPOFOL IV EMULSION 10 MG/ML 100 ML VIAL IV ONE (10:42)
[2019-06-16] MEDS ORDERED: fentaNYL citrate 100 MCG/2 ML VIAL IV PRN (10:43)
[2019-06-16] MEDS ORDERED: NOREPINEPHRINE BIT INJ 8 MG in DEXTROSE 5% 500 ML IV SCH (10:45)
[2019-06-16] MEDS ORDERED: ICU PROTOCOL FOR HYPERGLYCEMIA PRN (10:48)
[2019-06-16] MEDS ORDERED: FAMOTIDINE 20MG/5ML IV PUSH IV STA (10:52)
[2019-06-16] MEDS ORDERED: LEVOFLOXACIN/D5W 750 MG/150 ML BAG IV SCH (11:00)
[2019-06-16] MEDS ORDERED: FAMOTIDINE 20 MG in SYRINGE 3 ML IV ONE (11:15)
[2019-06-16] MEDS: guaiFENesin 600 MG TABCR PO SCH ×2 (11:18→20:23)
[2019-06-16] MEDS: PANTOprazole 40 MG TAB PO SCH (11:18)
[2019-06-16] MEDS: TAMSULOSIN HCL 0.4 MG CAP PO SCH (11:18)
--- NOTE | 2019-06-16 11:20 | Critical Care Consultation ---
Date of Consultation June 16, 2019 Assessment & Plan (1) Admitted to intensive care unit: Reason Critically Ill: 83-year-old male was transferred to ICU for worsening hypoxia respiratory failure requiring intubation Neuro - Intubated and sedated with paralytics Sedation: Propofol, fentanyl Paralytic: Cisatracurium Cardiac - A. fib with RVRdiltiazem drip unable to control heart rate, discontinued for progressive hypotension -Esmolol was also discontinued as it decreased blood pressure -Considering amiodarone, however considering possible effect of lung toxicity -Pressors switched to phenylephrine and vaso to decrease heart irritability -Monitoring on telemetry -May consider digoxin Shockcardiogenic versus septic, cardiogenic most likely as patient has been in A. fib RVR and chest x-ray consistent with congestive failure -Procalcitonin and lactate unremarkable -Patient currently requiring vasopressors, was started on levo and transition to phenylephrine and vasopressin for heart rate -Would try to avoid bolus at this time considering pulmonary status -A-line inserted for continuous monitoring Respiratory - Acute hypoxic respiratory failurepatient developed multifocal pneumonia, progressive hypoxia requiring intubation -Respiratory acidosis on ABG -Diuresis with IV Lasix -Requiring high FiO2 high PEEP settings on ventilator for oxygenation -Developed small mediastinal pneumothorax shown on chest x-ray and subcutaneous air, likely from barotrauma, were able to wean PEEP down, unchanged on repeat study -Paralytics added to promote ventilator compliance -Continuing nebs -Consider bronc if patient stabilizes -Continue antibiotic therapy with cefepime -Frequent ABGs -Continuous O2 sat monitoring GI - Pepcid OG tube RENAL/LYTES - Creatinine and electrolytes stable, monitor with routine BMPs and replete as necessary - Roman, strict I's and O's ENDO - ICU hyperglycemic protocol HEME - H&H stable monitor routine CBCs Supratherapeutic INRholding Coumadin, will routinely monitor -Assessing for DIC, will transfuse FFP if indicated ID - Continued cefepime blood cultures negative to date Urine culture positive for Klebsiella LINES/IV ACCESS - Peripheral IVs, CBC, A-line, ETT, OGT DVT PROPHYLAXIS - SCDs, holding anticoagulation for supratherapeutic INR I have personally spent 140 minutes of critical care time in the direct management of this patient. This is a life/limb threatening event. This includes time spent evaluating patient, direct bedside care, chart review, placing orders, interpretation of diagnostic studies, discussion with consultants, patient, and family members, as well as other required patient management activities. This time is exclusive of all separately billable procedures, and teaching time and separate from and in addition to any other critical care service time. Thank you for allowing us to participate in the care of this patient. Please refer to my attending physician's documentation for any further recommendations. (2) Acute respiratory failure with hypoxia: (3) Atrial fibrillation with RVR: (4) PNA (pneumonia): Supervising Physician Co-Signing Physician Notes Patient seen and evaluated with Ajit PEREZ. 83-year-old male with past medical history of atrial fibrillation on Coumadin, hypertension sleep apnea who presented to the hospital due to multifocal pneumonia. He decompensated acutely on the floor this morning and was transferred to the ICU for hypoxemic respiratory failure he was requiring 100% BiPAP. Impression: -Acute hypoxemic respiratory failure secondary to multifocal pneumonia small bilateral effusions -Shock secondary to healthcare acquired pneumonia -Atrial fibrillation with rapid response -Acute kidney injury -Acute pneumomediastinum secondary to barotrauma -Small right apical pneumothorax Summary of plan: -Patient is severely critically ill. Continue broad-spectrum antibiotics. Currently on neuromuscular blockade given his profound hypoxemia. We initially switched him over to pressure control and increased his PEEP to 18 initially to recruit his alveolar subsegments. I suspect that he likely had barotrauma and thus pneumomediastinum. Ideally, we would perform a bronchoscopy to look for any tracheal tear tears, however, given his profound hypoxemia I think the risks outweigh the benefits in doing a bronchoscopy at this present time. We then switched him to PRVC and decreased his PEEP to 14. His oxygenation improved with neuromuscular blockade. He continues to be profoundly hypotensive requiring phenylephrine and vasopressin. We switched him off of levophed due to the ongoing atrial fibrillation with rapid ventricular response. We started him on stress dose steroids. After discussion with the patient's , she decided that he would not want prolonged measures and long-term life support. He is currently DNR/DNI and they will discuss amongst themselves regarding transitioning to comfort care. History of Present Illness Attending Physician: Gerald Rodríguez DO History of Present Illness Mr. Mancia is an 83-year-old male that was being treated in PCU for multifocal pneumonia, requiring high flow nasal cannula. He was transferred to the ICU this morning for worsening symptoms of shortness of breath and desaturation into the 80s on BiPAP, along with A. fib RVR with heart rate 140s. Patient was intubated shortly after arrival to ICU. His deterioration progressively worsened and he continued to require higher ventilator support. Patient also became hypotensive and is requiring vasopressor support. Arterial line and CVC emergently inserted. Following further discussions with family and my attending involving [employer], the family has decided to make the patient DNR at this time considering poor prognosis. Allergies Allergy/AdvReac Type Severity Reaction Status Date / Time codeine Allergy Unknown UNKNOWN Verified 06/03/19 17:36 Home Medications Home Medications Medication Instructions Recorded Confirmed Type lisinopril 5 mg PO DAILY 06/03/19 06/03/19 History omeprazole 20 mg PO DAILY 06/03/19 06/03/19 History tamsulosin 0.4 mg PO DAILY 06/03/19 06/03/19 History warfarin 4 mg PO UD 06/03/19 06/03/19 History diltiazem HCl 360 mg PO QAM #30 cap 06/07/19 Rx Patient History Medical History Vertigo (Chronic) Sleep apnea (Chronic) History of echocardiogram (Chronic) Heart murmur (Chronic) Family History Other No significant family history Social History Preferred Language: Sami Communication Ability: Effective Health Inspector Food Required: No Beliefs That Will Affect Care: None Current Living Situation: Spouse Feels Safe at Home: Yes Smoking Status: Former smoker Second Hand Exposure: No ; Hx Alcohol Use: No Hx Substance Use: No Review of Systems Review of Systems: Unobtainable due to endotracheal tube Physical Exam Eyes: PERRL, conjunctivae normal, anicteric sclerae ENMT: external ear and nose normal, oropharynx normal Neck: trachea midline, no thyromegaly Respiratory: Diminished coarse lung sounds bilaterally, symmetrical chest wall movement Cardiovascular: Patient A. fib on monitor, irregular rhythm, good peripheral perfusion, no edema Gastrointestinal (Abdomen): normal bowel sounds, soft, nontender, no hepatosplenomegaly Skin: no rashes, warm and dry Neurologic: Unable to assess secondary to sedation Psychiatric: Unable to assess secondary to sedation Genitourinary: Indwelling Roman catheter Results & Data Vital Signs (Past 12 Hours) Vital Signs Temp Pulse Pulse Pulse Resp BP BP 06/16/19 09:53 125 H 34 H 06/16/19 09:45 132 H 39 H 06/16/19 09:30 128 H 43 H 136/83 06/16/19 09:15 146 H 49 H 107/91 06/16/19 09:08 156 H 34 H 06/16/19 09:00 140 H 48 H 137/108 H 06/16/19 08:46 144 H 43 H 155/90 H 06/16/19 08:45 147 H 46 H 06/16/19 08:42 122 H 34 H 125/71 06/16/19 08:35 36.8 C 133 H 44 H 06/16/19 07:56 36.9 C 132 H 32 H 06/16/19 07:03 104 H 28 H 06/16/19 04:00 36.8 C 100 H 24 115/82 06/16/19 01:25 80 24 06/16/19 00:05 06/15/19 23:55 97 H 24 06/15/19 23:39 37.0 C 102 H 24 BP Pulse Ox Pulse Ox 06/16/19 09:53 91 06/16/19 09:45 100 06/16/19 09:30 89 L 06/16/19 09:15 89 L 06/16/19 09:08 90 06/16/19 09:00 89 L 06/16/19 08:46 92 06/16/19 08:45 92 06/16/19 08:42 93 06/16/19 08:35 125/71 82 L 06/16/19 07:56 119/86 86 L 06/16/19 07:03 89 L 06/16/19 04:00 90 06/16/19 01:25 95 06/16/19 00:05 94 06/15/19 23:55 95 06/15/19 23:39 110/67 93 Laboratory Results Laboratory Results - last 24 hr 06/16/19 06/16/19 06/16/19 06:29 06:29 06:29 WBC 21.33 H RBC 4.32 L Hgb 12.6 L Hct 36.6 L MCV 84.7 MCH 29.2 MCHC 34.4 RDW Std Deviation 39.6 RDW Coeff of Hermelinda 13.0 Plt Count 425 H MPV 9.8 Immature Gran % (Auto) 0.4 Neut % (Auto) 90.8 Lymph % (Auto) 4.0 [place] % (Auto) 4.8 Eos % (Auto) 0.0 Baso % (Auto) 0.0 Immature Gran # (Auto) 0.08 H Neut # (Auto) 19.36 H Lymph # (Auto) 0.85 L [place] # (Auto) 1.03 H Eos # (Auto) 0.00 Baso # (Auto) 0.01 Echinocytes PT 39.6 H INR 4.3 H APTT PTT Ratio Fibrinogen Fibrin Degrad Products D-Dimer Sample Site POC pH POC pCO2 POC pO2 POC HCO3 POC Total CO2 POC Base Excess ABG pH (Temp Correct) ABG pCO2 (Temp Corrct POC ABG pO2 at Pt Temp POC ABG O2 Sat Davidson Test O2 Delivery Device POC O2 Rate Minute Ventilation POC FiO2 Tidal Volume PEEP IPAP Sodium 138 Potassium 4.2 Chloride 107 Carbon Dioxide 24 Anion Gap 8.0 BUN 39 H Creatinine 1.02 Est Cr Clr Drug Dosing 52.2 Est GFR ( Amer) 79.0 Est GFR (Non-Af Amer) 68.1 BUN/Creatinine Ratio 38.2 H Glucose 119 H Lactate Calcium 8.8 Phosphorus Magnesium Total Bilirubin 0.8 AST 81 H ALT 120 H Alkaline Phosphatase 145 H Total Creatine Kinase C-Reactive Protein NT-Pro-B Natriuret Pep Total Protein 6.9 Albumin 2.3 L Globulin 4.6 H Albumin/Globulin Ratio 0.5 L Procalcitonin Nasal Screen MRSA (PCR) Urine Legionella Ag Blood Type Blood Type Recheck Antibody Screen Crossmatch 06/16/19 06/16/19 06/16/19 06:29 06:29 08:55 WBC RBC Hgb Hct MCV MCH MCHC RDW Std Deviation RDW Coeff of Hermelinda Plt Count MPV Immature Gran % (Auto) Neut % (Auto) Lymph % (Auto) [place] % (Auto) Eos % (Auto) Baso % (Auto) Immature Gran # (Auto) Neut # (Auto) Lymph # (Auto) [place] # (Auto) Eos # (Auto) Baso # (Auto) Echinocytes PT INR APTT PTT Ratio Fibrinogen Fibrin Degrad Products D-Dimer Sample Site R Radial POC pH 7.38 POC pCO2 36 POC pO2 65 L POC HCO3 21 POC Total CO2 22 L POC Base Excess -4.0 ABG pH (Temp Correct) ABG pCO2 (Temp Corrct POC ABG pO2 at Pt Temp POC ABG O2 Sat 92.0 Davidson Test Pass O2 Delivery Device BIPAP POC O2 Rate 28 Minute Ventilation POC FiO2 Tidal Volume PEEP IPAP 10 Sodium Potassium Chloride Carbon Dioxide Anion Gap BUN Creatinine Est Cr Clr Drug Dosing Est GFR ( Amer) Est GFR (Non-Af Amer) BUN/Creatinine Ratio Glucose Lactate Calcium Phosphorus Magnesium Total Bilirubin AST ALT Alkaline Phosphatase Total Creatine Kinase C-Reactive Protein 10.40 H NT-Pro-B Natriuret Pep Total Protein Albumin Globulin Albumin/Globulin Ratio Procalcitonin Nasal Screen MRSA (PCR) Urine Legionella Ag Blood Type Blood Type Recheck A Positive Antibody Screen Crossmatch 06/16/19 06/16/19 06/16/19 11:44 12:00 12:00 WBC RBC Hgb Hct MCV MCH MCHC RDW Std Deviation RDW Coeff of Hermelinda Plt Count MPV Immature Gran % (Auto) Neut % (Auto) Lymph % (Auto) [place] % (Auto) Eos % (Auto) Baso % (Auto) Immature Gran # (Auto) Neut # (Auto) Lymph # (Auto) [place] # (Auto) Eos # (Auto) Baso # (Auto) Echinocytes PT INR APTT PTT Ratio Fibrinogen Fibrin Degrad Products D-Dimer Sample Site R Radial POC pH 7.23 L POC pCO2 56 H POC pO2 71 L POC HCO3 24 POC Total CO2 25 POC Base Excess -4.0 ABG pH (Temp Correct) 7.198 L* ABG pCO2 (Temp Corrct 62 H POC ABG pO2 at Pt Temp 83 POC ABG O2 Sat 90.0 Davidson Test Pass O2 Delivery Device Ventilator POC O2 Rate 25 Minute Ventilation 9.6 POC FiO2 Tidal Volume 400 PEEP 16 IPAP Sodium Potassium Chloride Carbon Dioxide Anion Gap BUN Creatinine Est Cr Clr Drug Dosing Est GFR ( Amer) Est GFR (Non-Af Amer) BUN/Creatinine Ratio Glucose Lactate Calcium Phosphorus Magnesium Total Bilirubin AST ALT Alkaline Phosphatase Total Creatine Kinase C-Reactive Protein NT-Pro-B Natriuret Pep Total Protein Albumin Globulin Albumin/Globulin Ratio Procalcitonin Nasal Screen MRSA (PCR) Negative Urine Legionella Ag Pending Blood Type Blood Type Recheck Antibody Screen Crossmatch 06/16/19 06/16/19 06/16/19 12:25 12:25 12:25 WBC RBC Hgb Hct MCV MCH MCHC RDW Std Deviation RDW Coeff of Hermelinda Plt Count MPV Immature Gran % (Auto) Neut % (Auto) Lymph % (Auto) [place] % (Auto) Eos % (Auto) Baso % (Auto) Immature Gran # (Auto) Neut # (Auto) Lymph # (Auto) [place] # (Auto) Eos # (Auto) Baso # (Auto) Echinocytes PT INR APTT PTT Ratio Fibrinogen Fibrin Degrad Products D-Dimer Sample Site POC pH POC pCO2 POC pO2 POC HCO3 POC Total CO2 POC Base Excess ABG pH (Temp Correct) ABG pCO2 (Temp Corrct POC ABG pO2 at Pt Temp POC ABG O2 Sat Davidson Test O2 Delivery Device POC O2 Rate Minute Ventilation POC FiO2 Tidal Volume PEEP IPAP Sodium Potassium Chloride Carbon Dioxide Anion Gap BUN Creatinine Est Cr Clr Drug Dosing Est GFR ( Amer) Est GFR (Non-Af Amer) BUN/Creatinine Ratio Glucose Lactate 2.0 Calcium Phosphorus Magnesium Total Bilirubin AST ALT Alkaline Phosphatase Total Creatine Kinase 47 C-Reactive Protein NT-Pro-B Natriuret Pep 3565 H Total Protein Albumin Globulin Albumin/Globulin Ratio Procalcitonin 0.34 Nasal Screen MRSA (PCR) Urine Legionella Ag Blood Type Blood Type Recheck Antibody Screen Crossmatch 06/16/19 06/16/19 06/16/19 13:44 14:53 14:53 WBC 29.53 H RBC 4.39 L Hgb 13.0 L Hct 37.7 L MCV 85.9 MCH 29.6 MCHC 34.5 RDW Std Deviation 41.7 RDW Coeff of Hermelinda 13.2 Plt Count 478 H MPV 9.5 Immature Gran % (Auto) 1.2 Neut % (Auto) 88.9 Lymph % (Auto) 2.8 [place] % (Auto) 7.0 Eos % (Auto) 0.0 Baso % (Auto) 0.1 Immature Gran # (Auto) 0.35 H Neut # (Auto) 26.25 H Lymph # (Auto) 0.84 L [place] # (Auto) 2.06 H Eos # (Auto) 0.01 Baso # (Auto) 0.02 Echinocytes 1+ PT INR APTT PTT Ratio Fibrinogen Fibrin Degrad Products D-Dimer Sample Site L Radial POC pH 7.12 L* POC pCO2 76 H POC pO2 70 L POC HCO3 25 H POC Total CO2 27 POC Base Excess -5.0 ABG pH (Temp Correct) ABG pCO2 (Temp Corrct POC ABG pO2 at Pt Temp POC ABG O2 Sat 86.0 L Davidson Test Pass O2 Delivery Device Ventilator POC O2 Rate 25 Minute Ventilation POC FiO2 100 Tidal Volume PEEP 20 IPAP Sodium Potassium Chloride Carbon Dioxide Anion Gap BUN Creatinine Est Cr Clr Drug Dosing Est GFR ( Amer) Est GFR (Non-Af Amer) BUN/Creatinine Ratio Glucose Lactate Calcium Phosphorus Magnesium Total Bilirubin AST ALT Alkaline Phosphatase Total Creatine Kinase C-Reactive Protein NT-Pro-B Natriuret Pep Total Protein Albumin Globulin Albumin/Globulin Ratio Procalcitonin Nasal Screen MRSA (PCR) Urine Legionella Ag Blood Type A Positive Blood Type Recheck Antibody Screen NEGATIVE Crossmatch See Detail 06/16/19 06/16/19 06/16/19 14:53 14:53 14:55 WBC RBC Hgb Hct MCV MCH MCHC RDW Std Deviation RDW Coeff of Hermelinda Plt Count MPV Immature Gran % (Auto) Neut % (Auto) Lymph % (Auto) [place] % (Auto) Eos % (Auto) Baso % (Auto) Immature Gran # (Auto) Neut # (Auto) Lymph # (Auto) [place] # (Auto) Eos # (Auto) Baso # (Auto) Echinocytes PT 47.9 H INR 5.3 H APTT 47.0 H* PTT Ratio 1.7 Fibrinogen 682 H Fibrin Degrad Products D-Dimer > 06136 H* Sample Site POC pH POC pCO2 POC pO2 POC HCO3 POC Total CO2 POC Base Excess ABG pH (Temp Correct) ABG pCO2 (Temp Corrct POC ABG pO2 at Pt Temp POC ABG O2 Sat Davidson Test O2 Delivery Device POC O2 Rate Minute Ventilation POC FiO2 Tidal Volume PEEP IPAP Sodium 134 L Potassium 4.9 D Chloride 104 Carbon Dioxide 23 Anion Gap 7.0 BUN 42 H Creatinine 1.45 H D Est Cr Clr Drug Dosing 36.7 Est GFR ( Amer) 51.6 Est GFR (Non-Af Amer) 44.5 BUN/Creatinine Ratio 29.2 H Glucose 181 H Lactate 2.0 Calcium 8.4 L Phosphorus 6.6 H Magnesium 2.3 Total Bilirubin AST ALT Alkaline Phosphatase Total Creatine Kinase C-Reactive Protein NT-Pro-B Natriuret Pep Total Protein Albumin Globulin Albumin/Globulin Ratio Procalcitonin Nasal Screen MRSA (PCR) Urine Legionella Ag Blood Type Blood Type Recheck Antibody Screen Crossmatch 06/16/19 06/16/19 15:24 15:28 WBC RBC Hgb Hct MCV MCH MCHC RDW Std Deviation RDW Coeff of Hermelinda Plt Count MPV Immature Gran % (Auto) Neut % (Auto) Lymph % (Auto) [place] % (Auto) Eos % (Auto) Baso % (Auto) Immature Gran # (Auto) Neut # (Auto) Lymph # (Auto) [place] # (Auto) Eos # (Auto) Baso # (Auto) Echinocytes PT INR APTT PTT Ratio Fibrinogen Fibrin Degrad Products >40 H D-Dimer Sample Site Art Line POC pH 7.20 L POC pCO2 58 H POC pO2 117 H POC HCO3 22 POC Total CO2 24 POC Base Excess -6.0 ABG pH (Temp Correct) ABG pCO2 (Temp Corrct POC ABG pO2 at Pt Temp POC ABG O2 Sat 97.0 H Davidson Test NA O2 Delivery Device Ventilator POC O2 Rate 26 Minute Ventilation 10.4 POC FiO2 100 Tidal Volume 400 PEEP 14 IPAP Sodium Potassium Chloride Carbon Dioxide Anion Gap BUN Creatinine Est Cr Clr Drug Dosing Est GFR ( Amer) Est GFR (Non-Af Amer) BUN/Creatinine Ratio Glucose Lactate Calcium Phosphorus Magnesium Total Bilirubin AST ALT Alkaline Phosphatase Total Creatine Kinase C-Reactive Protein NT-Pro-B Natriuret Pep Total Protein Albumin Globulin Albumin/Globulin Ratio Procalcitonin Nasal Screen MRSA (PCR) Urine Legionella Ag Blood Type Blood Type Recheck Antibody Screen Crossmatch Medications Administered Home Medications lisinopril 5 mg PO DAILY 06/03/19 [History Confirmed 06/03/19] omeprazole 20 mg PO DAILY 06/03/19 [History Confirmed 06/03/19] tamsulosin 0.4 mg PO DAILY 06/03/19 [History Confirmed 06/03/19] warfarin 4 mg PO UD 06/03/19 [History Confirmed 06/03/19] diltiazem HCl 360 mg PO QAM #30 cap 06/07/19 [Rx] Active Medications Acetaminophen (Tylenol) 650 mg PO Q4H PRN PRN Reason: Moderate Pain Stop: 07/14/19 13:23 Fentanyl Citrate (Fentanyl Citrate) 25 mcg IV ONE PRN PRN Reason: Pain Not Controlled by Drip Stop: 06/30/19 10:42 Guaifenesin (Mucinex) 1,200 mg PO Q12 [facility] Stop: 07/14/19 20:59 Last Admin: 06/16/19 11:18 Dose: Not Given Documented by: Diltiazem HCl 125 mg/ Dextrose 125 mls @ 0 mls/hr IV .Q0M SHARRI; Protocol Stop: 07/14/19 15:29 Last Titration: 06/16/19 15:00 Dose: 0 mg/hr, 0 mls/hr Documented by: Cefepime HCl 2,000 mg/ Syringe 12.5 mls @ 5 mls/min IV Q12H [facility]; Protocol Stop: 06/21/19 01:59 Last Admin: 06/16/19 13:40 Dose: 5 mls/min Documented by: Levofloxacin/Dextrose (Levaquin/D5w) 750 mg in 150 mls @ 100 mls/hr IV Q24H [facility]; Protocol Stop: 06/23/19 10:59 Last Infusion: 06/16/19 13:16 Dose: Infused Documented by: Norepinephrine Bitartrate 8 mg (/ Dextrose) 508 mls @ 12.78 mls/hr IV .Q24H [facility]; Protocol Stop: 07/16/19 10:44 Last Admin: 06/16/19 11:28 Dose: Not Given Documented by: Fentanyl Citrate (Fentanyl Drip) 1,250 mcg in 250 mls @ 10 mls/hr IV .Q24H [facility]; Protocol Stop: 06/30/19 10:42 Last Titration: 06/16/19 19:08 Dose: 50 mcg/hr, 10 mls/hr Documented by: Propofol (Diprivan) 1,000 mg in 100 mls @ 6.039 mls/hr IV .[id number] [facility]; Protocol Stop: 06/19/19 10:42 Last Titration: 06/16/19 19:08 Dose: 15 mcg/kg/min, 6 mls/hr Documented by: Cisatracurium Besylate 40 mg/ (Sodium Chloride) 100 mls @ 10.07 mls/hr IV .Q9H56M [facility]; Protocol Stop: 07/16/19 14:42 Last Titration: 06/16/19 19:08 Dose: 1 mcg/kg/min, 10.1 mls/hr Documented by: Sodium Chloride (Nss) 250 mls @ 15 mls/hr IV .[id number] PRN PRN Reason: For Transfusion Stop: 06/17/19 14:44 Phenylephrine HCl 20 mg/ (Dextrose) 502 mls @ 70.74 mls/hr IV .Q7H6M [facility]; Protocol Stop: 07/16/19 14:44 Last Titration: 06/16/19 19:08 Dose: 0.7 mcg/kg/min, 70.7 mls/hr Documented by: Vasopressin 20 units/ Sodium (Chloride) 101 mls @ 12.12 mls/hr IV .Q8H20M [facility]ARRI Stop: 07/16/19 14:44 Last Infusion: 06/16/19 19:08 Dose: 0.04 unit/min, 12.1 mls/hr Documented by: Sodium Chloride (Nss) 250 mls @ 15 mls/hr IV .[id number] PRN PRN Reason: For Transfusion Stop: 06/17/19 14:45 Hydrocortisone Sodium (Succinate 50 mg/ Syringe) 1 mls @ 4 mls/min IV Q6H [facility] Stop: 07/16/19 15:59 Last Admin: 06/16/19 15:57 Dose: 4 mls/min Documented by: Ioversol (Optiray 320 125ml) 89 ml IV ONCE PRN PRN Reason: Interaction Checking Stop: 06/18/19 14:37 Last Admin: 06/14/19 14:38 Dose: 89 ml Documented by: Ipratropium [place] (Atrovent 0.02% 0.5mg/2.5ml) 0.5 mg NEB Q6R SHARRI Stop: 07/15/19 12:59 Last Admin: 06/16/19 13:31 Dose: 0.5 mg Documented by: Levalbuterol HCl (Xopenex 1.25mg/0.5ml Neb) 1.25 mg NEB Q6R SHARRI Stop: 07/14/19 18:59 Last Admin: 06/16/19 13:31 Dose: 1.25 mg Documented by: Lisinopril (Zestril) 5 mg PO QAM [facility] Stop: 07/16/19 08:59 Last Admin: 06/16/19 11:18 Dose: Not Given Documented by: Miscellaneous (Icu Protocol For Hyperglycemia) 1 ea N/A PRN PRN; Protocol PRN Reason: Hyperglycemia Protocol Stop: 06/18/19 10:47 Multi-Ingredient Cream (Lacri-Lube) 1 appln OP Q2H PRN PRN Reason: eye protection if proned Stop: 07/16/19 14:20 Last Admin: 06/16/19 16:57 Dose: 1 appln Documented by: Ondansetron HCl (Zofran) 4 mg IV Q4H PRN PRN Reason: Nausea And Vomiting Stop: 07/14/19 13:23 Pantoprazole Sodium (Protonix) 40 mg PO DAILY [facility] Stop: 07/15/19 10:44 Last Admin: 06/16/19 11:18 Dose: Not Given Documented by: Polyethylene Glycol (Miralax Powder Packet) 17 gm PO DAILY PRN PRN Reason: Constipation Stop: 07/16/19 08:11 Tamsulosin HCl (Flomax) 0.4 mg PO DAILY [facility] Stop: 07/15/19 10:44 Last Admin: 06/16/19 11:18 Dose: Not Given Documented by: Warfarin Sodium (Coumadin) 4 mg PO DAILY@1600 SHARRI Stop: 07/15/19 15:59 Last Admin: 06/15/19 16:21 Dose: 4 mg Documented by: PG Care Time/CCT Total # of Minutes Spent Total Time Spent with Patient: Total time spent is greater than 50% in coordination of care (as documented) at patient's floor/unit and/or counseling patient: Critical Care Time: Yes Total Critical Care Time: 140 (1) PNA (pneumonia) Laterality: bilateral Lung location: lower lobe of lung Pneumonia type: due to unspecified organism Qualified Code(s): J18.1 - Lobar pneumonia, unspecified organism
[2019-06-16] MEDS: PROPOFOL 1,000 MG/100 ML VIAL IV SCH ×2 (11:22→20:40)
[2019-06-16] MEDS: fentaNYL DRIP 1,250 MCG/250 ML BAG IV SCH (11:22)
--- NOTE | 2019-06-16 11:23 | XRay Report ---
SINGLE VIEW CHEST CLINICAL HISTORY: Respiratory failure. Intubation. FINDINGS: An AP, portable, semierect chest radiograph is compared to chest x-ray and chest CT dated . The examination is degraded by portable technique and patient rotation. An endotracheal tub e has been placed. The tip projects 0.5 cm above the kierra. An enteric tube has been placed. The tip is located below the diaphragm and is not visualized. The heart is enlarged and there is atheroscler otic calcification of the thoracic aorta. The pulmonary vasculature is noncongested. Again seen is mu ltifocal airspace consolidation, right lung greater than left. Small pleural effusions are noted. No pneumothorax is seen. The skeletal structures are osteopenic. The bony thorax is grossly intact. Dege nerative change is seen throughout the thoracic spine. IMPRESSION: 1. An endotracheal tube has been placed. The tip projects 0.5 cm above the kierra. This should be pul led back. 2. An enteric tube has been placed, and the tip projects below the diaphragm. 3. Multifocal airspace consolidation and small pleural effusions as above. This is similar in appeara nce to yesterday. 4. Cardiomegaly without radiographic evidence of congestive failure. Electronically signed by: Reza Sotelo M.D. 06/16/2019 11:22 AM
[2019-06-16 11:59] LABS: iSTAT Allen Test Pass; iSTAT Art Bld Gas pCO2 Correct 62 mmHg (35-46); iSTAT Art Bld Gas pH Corrected 7.198 (7.35-7.45); iSTAT Arterial Blood Gas HCO3 24 meg/L (19-24); iSTAT Arterial Blood Gas pCO2 56 mmHg (35-46); iSTAT Arterial Blood Gas pH 7.23 (7.35-7.45); iSTAT Arterial Blood Gas pO2 71 mmHg (80-95); iSTAT Arterial Blood Gas pO2 C 83; iSTAT Carbon Dioxide 25 mEq/l (24-31); iSTAT Site R Radial
[2019-06-16] MEDS ORDERED: FUROSEMIDE 40 MG/4 ML VIAL IV STA (12:04)
[2019-06-16] MEDS ORDERED: ALBUT/IPRATROP 3MG/0.5MG NEB 3 ML VIAL NEB STA (12:11)
[2019-06-16] MEDS ORDERED: METOPROLOL TARTRATE 1 MG/ML VIAL IV STA (12:16)
[2019-06-16 12:57] LABS: Creatine Kinase 47 U/L (39-308); NT Pro B Type Natriuretic Pept 3565 pg/ml (0-1800)
[2019-06-16 13:59] LABS: iSTAT Allen Test Pass; iSTAT Arterial Blood Gas HCO3 25 meg/L (19-24); iSTAT Arterial Blood Gas pCO2 76 mmHg (35-46); iSTAT Arterial Blood Gas pH 7.12 (7.35-7.45); iSTAT Arterial Blood Gas pO2 70 mmHg (80-95); iSTAT Carbon Dioxide 27 mEq/l (24-31); iSTAT FiO2 100 %; iSTAT Site L Radial
[2019-06-16] MEDS ORDERED: ARTIFICIAL TEARS OP OINT 3.5 GM TUBE OP PRN (14:21)
[2019-06-16] MEDS ORDERED: CISATRACURIUM BESYLATE 40 MG in 0.9 % SODIUM CHLORIDE 80 ML IV SCH (14:43)
[2019-06-16] MEDS ORDERED: VASOPRESSIN 20 UNITS in 0.9 % SODIUM CHLORIDE 100 ML IV SCH (14:45)
[2019-06-16] MEDS ORDERED: SODIUM CHLORIDE 0.9% 250 ML IV PRN ×2 (14:45→14:46)
--- NOTE | 2019-06-16 14:49 | XRay Report ---
SINGLE VIEW CHEST CLINICAL HISTORY: Respiratory failure. FINDINGS: An AP, portable, semierect chest radiograph is compared to chest x-ray and chest CT dated . The examination is degraded by portable technique and patient rotation. The endotracheal tu be has been repositioned. The tip now projects 4 cm above the kierra. An enteric tube is unchanged in position. The heart is enlarged and there is atherosclerotic calcification of the thoracic aorta. Th e pulmonary vasculature is noncongested. There is pneumomediastinum. Again seen is multifocal airspac e consolidation, right lung greater than left. Small pleural effusions are noted. There is trace righ t apical pneumothorax. The skeletal structures are osteopenic. The bony thorax is grossly intact. Deg enerative change is seen throughout the thoracic spine. There is extensive subcutaneous emphysema elodia ntified in the lower neck, with milder subcutaneous emphysema along the right chest wall. IMPRESSION: 1. The endotracheal tube has been repositioned. The tip now projects 4 cm above the kierra. 2. There is a trace right apical pneumothorax and extensive subcutaneous emphysema in the lower neck. These findings are new from today's earlier examination. 3. Pneumomediastinum is also new from previous. 4. Multifocal airspace consolidation and small pleural effusions as above. This is unchanged from ear lier today. 5. Cardiomegaly without radiographic evidence of congestive failure. Electronically signed by: Reza Sotelo M.D. 06/16/2019 2:48 PM
--- NOTE | 2019-06-16 14:57 | Procedure Note ---
Procedure Note Date of Service June 16, 2019 Note Patient with multifocal pneumonia and now with concern for sepsis. Blood pressure dropped. Respirations status diminished. Need for immediate and emergent arterial line access in preparation for prone patient. ARTERIAL LINE PROCEDURE NOTE: Procedure: Arterial Line Placement Attending: Dr. Rivera APC: Reza Branch PA-C Indication: Monitoring on Pressors Anesthesia: None Consent was not obtained as this was an emergent arterial line. After placement, patient's was called and I spoke to the daughter. is on her way into the hospital. It was noted that the patient's INR was suratherapeutic at 4.6. A time-out was completed verifying correct patient, procedure, site, positioning, and implant(s) or special equipment if applicable. Allens test was performed to ensure adequate perfusion. Patients right wrist was prepped and draped in the usual sterile fashion. Ultrasound guidance was used to aid needle placement. A 20g Arrow arterial line was introduced into the right radial artery. Catheter was threaded, and the needle was removed with appropriate blood return. Good waveform was observed. The patient tolerated the procedure well. Confirmation of placement with ultrasound. Images were not saved to medical record. Blood Loss: 5 cc Complications: None. No significant bleeding or hematoma was appreciated. Dr. Rivera was updated at the completion of the procedure and assumed care of the patient Coding CPT Codes Tubes, Drains, and Vasc Access - Tubes, Drains, and Vasc Access: Insertion Catheter, Artery ([id number])
[2019-06-16] MEDS: PHENYLEPHRINE HCL 20 MG in DEXTROSE 5% 500 ML IV SCH (14:59)
[2019-06-16 15:13] LABS: Hematocrit (blood only) 37.7 % (42-52); Mean Corpuscular Hemoglobin 29.6 pg (25-34); Mean Corpuscular Volume 85.9 fL (80-100); Mean Platelet Volume 9.5 fL (7.4-10.4); Platelet Count 478 K/uL (130-400); RDW Coefficient of Variation 13.2 % (11.5-14.5); RDW Standard Deviation 41.7 fL (36.4-46.3); Red Blood Count 4.39 M/uL (4.7-6.1); White Blood Count 29.53 K/uL (4.8-10.8)
[2019-06-16 15:22] LABS: BUN Creatinine Ratio 29.2 (10-20); Calcium 8.4 mg/dl (8.5-10.1); Creatinine Clr Calc Pharmacy 36.7 ml/min; Est GFR (African American) 51.6; Est GFR (Non-African American) 44.5; Magnesium 2.3 mg/dl (1.8-2.4); Phosphorus 6.6 mg/dl (2.5-4.9)
[2019-06-16 15:36] LABS: Basophils # (auto) 0.02 K/uL (0-0.2); Basophils % (auto) 0.1 %; Echinocytes 1+; Eosinophils # (auto) 0.01 K/uL (0-0.5); Immature Granulocytes # (auto) 0.35 K/uL (0.00-0.02); Immature Granulocytes % (auto) 1.2 %; Lymphocytes # (auto) 0.84 K/uL (1.2-3.4); Lymphocytes % (auto) 2.8 %; Mean Corpuscular Hgb Conc 34.5 g/dL (32-36); Monocytes # (auto) 2.06 K/uL (0.11-0.59); Neutrophils # (auto) 26.25 K/uL (1.4-6.5); Neutrophils % (auto) 88.9 %
[2019-06-16 15:39] LABS: iSTAT Arterial Blood Gas HCO3 22 meg/L (19-24); iSTAT Arterial Blood Gas pCO2 58 mmHg (35-46); iSTAT Arterial Blood Gas pO2 117 mmHg (80-95); iSTAT Carbon Dioxide 24 mEq/l (24-31); iSTAT FiO2 100 %; iSTAT Site Art Line
[2019-06-16] MEDS ORDERED: HYDROCORTISONE SOD 50 MG in SYRINGE 0 ML IV SCH (16:00)
--- NOTE | 2019-06-16 16:02 | Family Medicine Progress Note ---
Date of Service June 16, 2019 Assessment & Plan (1) PNA (pneumonia): 83 yo M with PMH Afib, HTN readmitted after recent hospitalization for PNA (06/03-06/07) and d/c on Augmentin. Represents with ongoing fatigue and SOB found to have increased opacities at the R lung base. Later in admission, need for mech vent due to ongoing SOB not responsive to BiPAP. HAP/Acute Hypoxic Resp Failure -CTA: Extensive bilateral consolidation, greater within the right lung. The f indings favor multifocal pneumonia. Additionally, small, partially loculated right pleural effusion -Cont with IV cefepime. Given white count and no improvement in breathing status, added Levaquin for added double gram neg coverage along with atypical coverage -Blood cx NGTD -Incentive spirometry, flutter, Mucinex, Tessalon Perles, levalbuterol nebs -MRSA neg -06/16: pt with worsening resp distress not responsive to BiPAP. Cause may have been mucous plug dislodge vs worsening effusions. ABG unremarkable other than showing hypoxia. CXR: No significant change in bilateral airspace opacities which favor extensive pneumonia, Small right and trace left pleural effusions. EKG unchanged showing Afib w/ RVR and LBBB. Decision made to move pt to ICU for intubation and further management. Will consider bronch moving forward. -appreciate ICU management Atrial fibrillation with RVR - Continue cardizem gtt. If not rate controlled will add IV BB -Will transition to home Cardizem 360 mg p.o. moving forward once able -Cont on ICU -cont warfarin 4mg -ECHO: LV systolic fxn is normal. No regional wall motion abnormalities. EF 50- 55%. No significant valvular pathology HTN -cont home lisinopril 5 mg . Hold if hypotensive FEN/GI: NPO with mech vent DVT Prophylaxis: Warfarin FULL CODE Disposition: ICU Supervising Physician Co-Signing Physician Notes I personally examined the patient and verified all crockett points of history and exam, discussed case, and agree with decision making with Dr Banda. Worsening respiratory distress. Patient moved to ICU and intubated. Case discussed with casting machine operator. Input appreciated. Family updated extensively to the best of my ability and to their satisfaction. Vitals noted, in general he is now intubated and sedated. Breathing is unlabored on the vent. No focal neuro deficits. Skin shows no rashes no pallor or icterus. Exam otherwise as above. Healthcare associated pneumoniahis course of illness seems to been that of having a community-acquired pneumonia, improving with that, then getting worse with a healthcare associated pneumonia prompting the readmission. Given his worsening today, considerations are towards whether or not he has a multidrug- resistant gram-negative that may have been initially stabilized with cefepime but is now failing, add Levaquin for double coverage of gram-negative's in this regard. Legionella is also under consideration, Levaquin will cover this as well. Urine sent. Is also possible that given his age and the extent of the pneumonia he simply fatigued. Continue supportive care. Acute hypoxic respiratory failure in setting of presumed gram negative HAP-now on ventilator support Pleural effusionwhile on CT somewhat concerning for the possibility of a loculated effusion/empyema, bedside ultrasound per pulmonary was quite reassuring. Continue current antibiotics, supportive care, periodic reassessment. DVT prophylaxisanticoagulation Subjective 83 y/o M found in bed this AM with SOB. Paged by RN with report that pt had decreased O2 sats despite HFNC in 80s. Denied CP. Pt put on BiPAP with some improvement. 0.5 mg Ativan IV given. CXR, ABG, EKG ordered, see A&P for results. Pt continued to sat in upper 80's on BiPAP with ongoing complaints of SOB, decision made to move pt to ICU where he was eventually intubated. Review of Systems Review of Systems: Unobtainable due to endotracheal tube Physical Exam Constitutional: WD/WN, vitals as above Eyes: PERRL, conjunctivae normal, anicteric sclerae Respiratory: no respiratory distress and no labored breathing Auscultation: + crackles On Mech Vent Cardiovascular: Rate/Rhythm: + tachycardic and + irregularly irregular Gastrointestinal (Abdomen): normal bowel sounds, soft, nontender, no hepatosplenomegaly Skin: no rashes, warm and dry Results & Data Vital Signs (Past 12 Hours) Vital Signs Temp Pulse Pulse Pulse Resp BP BP 06/16/19 15:30 144 H 06/16/19 15:00 37 C 162 H 06/16/19 14:30 135 H 79/55 L 06/16/19 14:15 140 H 91/67 L 06/16/19 14:00 37.4 C 129 H 97/70 L 06/16/19 13:34 132 H 28 H 06/16/19 13:30 138 H 122/69 06/16/19 13:15 140 H 06/16/19 13:00 37.2 C 146 H 125/81 06/16/19 12:50 25 H 06/16/19 12:45 125 H 111/62 06/16/19 12:30 138 H 119/62 06/16/19 12:22 135 H 25 H 06/16/19 12:15 134 H 114/87 06/16/19 12:00 134 H 122/73 06/16/19 11:45 115 H 121/65 06/16/19 11:30 115 H 115/67 06/16/19 11:15 109 H 104/59 L 06/16/19 11:00 38.9 C H 123 H 107/67 06/16/19 10:50 115 H 28 H 06/16/19 10:44 85 124/73 06/16/19 10:31 139 H 125/82 06/16/19 10:23 147 H 135/87 06/16/19 10:00 142/125 H 06/16/19 09:55 123 H 47 H 128/76 06/16/19 09:53 125 H 34 H 06/16/19 09:45 132 H 39 H 06/16/19 09:30 128 H 43 H 136/83 06/16/19 09:15 146 H 49 H 107/91 06/16/19 09:08 156 H 34 H 06/16/19 09:00 140 H 48 H 137/108 H 06/16/19 08:46 144 H 43 H 155/90 H 06/16/19 08:45 147 H 46 H 06/16/19 08:42 122 H 34 H 125/71 06/16/19 08:35 36.8 C 133 H 44 H 06/16/19 07:56 36.9 C 132 H 32 H 06/16/19 07:03 104 H 28 H 06/16/19 04:00 36.8 C 100 H 24 115/82 BP Pulse Ox 06/16/19 15:30 97 06/16/19 15:00 92 06/16/19 14:30 82 L 06/16/19 14:15 85 L 06/16/19 14:00 83 L 06/16/19 13:34 06/16/19 13:30 85 L 06/16/19 13:15 86 L 06/16/19 13:00 86 L 06/16/19 12:50 06/16/19 12:45 84 L 06/16/19 12:30 84 L 06/16/19 12:22 84 L 06/16/19 12:15 84 L 06/16/19 12:00 84 L 06/16/19 11:45 88 L 06/16/19 11:30 87 L 06/16/19 11:15 85 L 06/16/19 11:00 87 L 06/16/19 10:50 84 L 06/16/19 10:44 84 L 06/16/19 10:31 89 L 06/16/19 10:23 91 06/16/19 10:00 85 L 06/16/19 09:55 91 06/16/19 09:53 91 06/16/19 09:45 100 06/16/19 09:30 89 L 06/16/19 09:15 89 L 06/16/19 09:08 90 06/16/19 09:00 89 L 06/16/19 08:46 92 06/16/19 08:45 92 06/16/19 08:42 93 06/16/19 08:35 125/71 82 L 06/16/19 07:56 119/86 86 L 06/16/19 07:03 89 L 06/16/19 04:00 90 Laboratory Results Laboratory Results - last 24 hr 06/16/19 06/16/19 06/16/19 06:29 06:29 06:29 WBC 21.33 H RBC 4.32 L Hgb 12.6 L Hct 36.6 L MCV 84.7 MCH 29.2 MCHC 34.4 RDW Std Deviation 39.6 RDW Coeff of Hermelinda 13.0 Plt Count 425 H MPV 9.8 Immature Gran % (Auto) 0.4 Neut % (Auto) 90.8 Lymph % (Auto) 4.0 Moore % (Auto) 4.8 Eos % (Auto) 0.0 Baso % (Auto) 0.0 Immature Gran # (Auto) 0.08 H Neut # (Auto) 19.36 H Lymph # (Auto) 0.85 L Moore # (Auto) 1.03 H Eos # (Auto) 0.00 Baso # (Auto) 0.01 Echinocytes PT 39.6 H INR 4.3 H APTT PTT Ratio Fibrinogen Fibrin Degrad Products D-Dimer Sample Site POC pH POC pCO2 POC pO2 POC HCO3 POC Total CO2 POC Base Excess ABG pH (Temp Correct) ABG pCO2 (Temp Corrct POC ABG pO2 at Pt Temp POC ABG O2 Sat Davidson Test O2 Delivery Device POC O2 Rate Minute Ventilation POC FiO2 Tidal Volume PEEP IPAP Sodium 138 Potassium 4.2 Chloride 107 Carbon Dioxide 24 Anion Gap 8.0 BUN 39 H Creatinine 1.02 Est Cr Clr Drug Dosing 52.2 Est GFR ( Amer) 79.0 Est GFR (Non-Af Amer) 68.1 BUN/Creatinine Ratio 38.2 H Glucose 119 H Lactate Calcium 8.8 Phosphorus Magnesium Total Bilirubin 0.8 AST 81 H ALT 120 H Alkaline Phosphatase 145 H Total Creatine Kinase C-Reactive Protein NT-Pro-B Natriuret Pep Total Protein 6.9 Albumin 2.3 L Globulin 4.6 H Albumin/Globulin Ratio 0.5 L Procalcitonin Nasal Screen MRSA (PCR) Urine Legionella Ag Blood Type Blood Type Recheck Antibody Screen Crossmatch 06/16/19 06/16/19 06/16/19 06:29 06:29 08:55 WBC RBC Hgb Hct MCV MCH MCHC RDW Std Deviation RDW Coeff of Hermelinda Plt Count MPV Immature Gran % (Auto) Neut % (Auto) Lymph % (Auto) Moore % (Auto) Eos % (Auto) Baso % (Auto) Immature Gran # (Auto) Neut # (Auto) Lymph # (Auto) Moore # (Auto) Eos # (Auto) Baso # (Auto) Echinocytes PT INR APTT PTT Ratio Fibrinogen Fibrin Degrad Products D-Dimer Sample Site R Radial POC pH 7.38 POC pCO2 36 POC pO2 65 L POC HCO3 21 POC Total CO2 22 L POC Base Excess -4.0 ABG pH (Temp Correct) ABG pCO2 (Temp Corrct POC ABG pO2 at Pt Temp POC ABG O2 Sat 92.0 Davidson Test Pass O2 Delivery Device BIPAP POC O2 Rate 28 Minute Ventilation POC FiO2 Tidal Volume PEEP IPAP 10 Sodium Potassium Chloride Carbon Dioxide Anion Gap BUN Creatinine Est Cr Clr Drug Dosing Est GFR ( Amer) Est GFR (Non-Af Amer) BUN/Creatinine Ratio Glucose Lactate Calcium Phosphorus Magnesium Total Bilirubin AST ALT Alkaline Phosphatase Total Creatine Kinase C-Reactive Protein 10.40 H NT-Pro-B Natriuret Pep Total Protein Albumin Globulin Albumin/Globulin Ratio Procalcitonin Nasal Screen MRSA (PCR) Urine Legionella Ag Blood Type Blood Type Recheck A Positive Antibody Screen Crossmatch 06/16/19 06/16/19 06/16/19 11:44 12:00 12:00 WBC RBC Hgb Hct MCV MCH MCHC RDW Std Deviation RDW Coeff of Hermelinda Plt Count MPV Immature Gran % (Auto) Neut % (Auto) Lymph % (Auto) Moore % (Auto) Eos % (Auto) Baso % (Auto) Immature Gran # (Auto) Neut # (Auto) Lymph # (Auto) Moore # (Auto) Eos # (Auto) Baso # (Auto) Echinocytes PT INR APTT PTT Ratio Fibrinogen Fibrin Degrad Products D-Dimer Sample Site R Radial POC pH 7.23 L POC pCO2 56 H POC pO2 71 L POC HCO3 24 POC Total CO2 25 POC Base Excess -4.0 ABG pH (Temp Correct) 7.198 L* ABG pCO2 (Temp Corrct 62 H POC ABG pO2 at Pt Temp 83 POC ABG O2 Sat 90.0 Davidson Test Pass O2 Delivery Device Ventilator POC O2 Rate 25 Minute Ventilation 9.6 POC FiO2 Tidal Volume 400 PEEP 16 IPAP Sodium Potassium Chloride Carbon Dioxide Anion Gap BUN Creatinine Est Cr Clr Drug Dosing Est GFR ( Amer) Est GFR (Non-Af Amer) BUN/Creatinine Ratio Glucose Lactate Calcium Phosphorus Magnesium Total Bilirubin AST ALT Alkaline Phosphatase Total Creatine Kinase C-Reactive Protein NT-Pro-B Natriuret Pep Total Protein Albumin Globulin Albumin/Globulin Ratio Procalcitonin Nasal Screen MRSA (PCR) Negative Urine Legionella Ag Pending Blood Type Blood Type Recheck Antibody Screen Crossmatch 06/16/19 06/16/19 06/16/19 12:25 12:25 12:25 WBC RBC Hgb Hct MCV MCH MCHC RDW Std Deviation RDW Coeff of Hermelinda Plt Count MPV Immature Gran % (Auto) Neut % (Auto) Lymph % (Auto) Moore % (Auto) Eos % (Auto) Baso % (Auto) Immature Gran # (Auto) Neut # (Auto) Lymph # (Auto) Moore # (Auto) Eos # (Auto) Baso # (Auto) Echinocytes PT INR APTT PTT Ratio Fibrinogen Fibrin Degrad Products D-Dimer Sample Site POC pH POC pCO2 POC pO2 POC HCO3 POC Total CO2 POC Base Excess ABG pH (Temp Correct) ABG pCO2 (Temp Corrct POC ABG pO2 at Pt Temp POC ABG O2 Sat Davidson Test O2 Delivery Device POC O2 Rate Minute Ventilation POC FiO2 Tidal Volume PEEP IPAP Sodium Potassium Chloride Carbon Dioxide Anion Gap BUN Creatinine Est Cr Clr Drug Dosing Est GFR ( Amer) Est GFR (Non-Af Amer) BUN/Creatinine Ratio Glucose Lactate 2.0 Calcium Phosphorus Magnesium Total Bilirubin AST ALT Alkaline Phosphatase Total Creatine Kinase 47 C-Reactive Protein NT-Pro-B Natriuret Pep 3565 H Total Protein Albumin Globulin Albumin/Globulin Ratio Procalcitonin 0.34 Nasal Screen MRSA (PCR) Urine Legionella Ag Blood Type Blood Type Recheck Antibody Screen Crossmatch 06/16/19 06/16/19 06/16/19 13:44 14:53 14:53 WBC 29.53 H RBC 4.39 L Hgb 13.0 L Hct 37.7 L MCV 85.9 MCH 29.6 MCHC 34.5 RDW Std Deviation 41.7 RDW Coeff of Hermelinda 13.2 Plt Count 478 H MPV 9.5 Immature Gran % (Auto) 1.2 Neut % (Auto) 88.9 Lymph % (Auto) 2.8 Moore % (Auto) 7.0 Eos % (Auto) 0.0 Baso % (Auto) 0.1 Immature Gran # (Auto) 0.35 H Neut # (Auto) 26.25 H Lymph # (Auto) 0.84 L Moore # (Auto) 2.06 H Eos # (Auto) 0.01 Baso # (Auto) 0.02 Echinocytes 1+ PT INR APTT PTT Ratio Fibrinogen Fibrin Degrad Products D-Dimer Sample Site L Radial POC pH 7.12 L* POC pCO2 76 H POC pO2 70 L POC HCO3 25 H POC Total CO2 27 POC Base Excess -5.0 ABG pH (Temp Correct) ABG pCO2 (Temp Corrct POC ABG pO2 at Pt Temp POC ABG O2 Sat 86.0 L Davidson Test Pass O2 Delivery Device Ventilator POC O2 Rate 25 Minute Ventilation POC FiO2 100 Tidal Volume PEEP 20 IPAP Sodium Potassium Chloride Carbon Dioxide Anion Gap BUN Creatinine Est Cr Clr Drug Dosing Est GFR ( Amer) Est GFR (Non-Af Amer) BUN/Creatinine Ratio Glucose Lactate Calcium Phosphorus Magnesium Total Bilirubin AST ALT Alkaline Phosphatase Total Creatine Kinase C-Reactive Protein NT-Pro-B Natriuret Pep Total Protein Albumin Globulin Albumin/Globulin Ratio Procalcitonin Nasal Screen MRSA (PCR) Urine Legionella Ag Blood Type A Positive Blood Type Recheck Antibody Screen NEGATIVE Crossmatch See Detail 06/16/19 06/16/19 06/16/19 14:53 14:53 14:55 WBC RBC Hgb Hct MCV MCH MCHC RDW Std Deviation RDW Coeff of Hermelinda Plt Count MPV Immature Gran % (Auto) Neut % (Auto) Lymph % (Auto) Moore % (Auto) Eos % (Auto) Baso % (Auto) Immature Gran # (Auto) Neut # (Auto) Lymph # (Auto) Moore # (Auto) Eos # (Auto) Baso # (Auto) Echinocytes PT Pending INR Pending APTT Pending PTT Ratio Pending Fibrinogen Pending Fibrin Degrad Products D-Dimer Pending Sample Site POC pH POC pCO2 POC pO2 POC HCO3 POC Total CO2 POC Base Excess ABG pH (Temp Correct) ABG pCO2 (Temp Corrct POC ABG pO2 at Pt Temp POC ABG O2 Sat Davidson Test O2 Delivery Device POC O2 Rate Minute Ventilation POC FiO2 Tidal Volume PEEP IPAP Sodium 134 L Potassium Pending Chloride 104 Carbon Dioxide 23 Anion Gap 7.0 BUN 42 H Creatinine 1.45 H D Est Cr Clr Drug Dosing 36.7 Est GFR ( Amer) 51.6 Est GFR (Non-Af Amer) 44.5 BUN/Creatinine Ratio 29.2 H Glucose 181 H Lactate 2.0 Calcium 8.4 L Phosphorus 6.6 H Magnesium 2.3 Total Bilirubin AST ALT Alkaline Phosphatase Total Creatine Kinase C-Reactive Protein NT-Pro-B Natriuret Pep Total Protein Albumin Globulin Albumin/Globulin Ratio Procalcitonin Nasal Screen MRSA (PCR) Urine Legionella Ag Blood Type Blood Type Recheck Antibody Screen Crossmatch 06/16/19 06/16/19 15:24 15:28 WBC RBC Hgb Hct MCV MCH MCHC RDW Std Deviation RDW Coeff of Hermelinda Plt Count MPV Immature Gran % (Auto) Neut % (Auto) Lymph % (Auto) Moore % (Auto) Eos % (Auto) Baso % (Auto) Immature Gran # (Auto) Neut # (Auto) Lymph # (Auto) Moore # (Auto) Eos # (Auto) Baso # (Auto) Echinocytes PT INR APTT PTT Ratio Fibrinogen Fibrin Degrad Products Pending D-Dimer Sample Site Art Line POC pH 7.20 L POC pCO2 58 H POC pO2 117 H POC HCO3 22 POC Total CO2 24 POC Base Excess -6.0 ABG pH (Temp Correct) ABG pCO2 (Temp Corrct POC ABG pO2 at Pt Temp POC ABG O2 Sat 97.0 H Davidson Test NA O2 Delivery Device Ventilator POC O2 Rate 26 Minute Ventilation 10.4 POC FiO2 100 Tidal Volume 400 PEEP 14 IPAP Sodium Potassium Chloride Carbon Dioxide Anion Gap BUN Creatinine Est Cr Clr Drug Dosing Est GFR ( Amer) Est GFR (Non-Af Amer) BUN/Creatinine Ratio Glucose Lactate Calcium Phosphorus Magnesium Total Bilirubin AST ALT Alkaline Phosphatase Total Creatine Kinase C-Reactive Protein NT-Pro-B Natriuret Pep Total Protein Albumin Globulin Albumin/Globulin Ratio Procalcitonin Nasal Screen MRSA (PCR) Urine Legionella Ag Blood Type Blood Type Recheck Antibody Screen Crossmatch Medications Administered Current Inpatient Medications Acetaminophen (Tylenol) 650 mg PO Q4H PRN PRN Reason: Moderate Pain Stop: 07/14/19 13:23 Fentanyl Citrate (Fentanyl Citrate) 25 mcg IV ONE PRN PRN Reason: Pain Not Controlled by Drip Stop: 06/30/19 10:42 Guaifenesin (Mucinex) 1,200 mg PO Q12 [facility] Stop: 07/14/19 20:59 Last Admin: 06/16/19 11:18 Dose: Not Given Documented by: Diltiazem HCl 125 mg/ Dextrose 125 mls @ 0 mls/hr IV .Q0M SHARRI; Protocol Stop: 07/14/19 15:29 Last Titration: 06/16/19 15:00 Dose: 0 mg/hr, 0 mls/hr Documented by: Cefepime HCl 2,000 mg/ Syringe 12.5 mls @ 5 mls/min IV Q12H [facility]; Protocol Stop: 06/21/19 01:59 Last Admin: 06/16/19 13:40 Dose: 5 mls/min Documented by: Levofloxacin/Dextrose (Levaquin/D5w) 750 mg in 150 mls @ 100 mls/hr IV Q24H SHARRI; Protocol Stop: 06/23/19 10:59 Last Infusion: 06/16/19 13:16 Dose: Infused Documented by: Norepinephrine Bitartrate 8 mg (/ Dextrose) 508 mls @ 12.78 mls/hr IV .Q24H [facility]; Protocol Stop: 07/16/19 10:44 Last Admin: 06/16/19 11:28 Dose: Not Given Documented by: Fentanyl Citrate (Fentanyl Drip) 1,250 mcg in 250 mls @ 10 mls/hr IV .Q24H [facility]ARRI; Protocol Stop: 06/30/19 10:42 Last Titration: 06/16/19 11:25 Dose: 50 mcg/hr, 10 mls/hr Documented by: Propofol (Diprivan) 1,000 mg in 100 mls @ 2.013 mls/hr IV .Q24H [facility]; Protocol Stop: 06/19/19 10:42 Last Titration: 06/16/19 15:00 Dose: 5 mcg/kg/min, 2 mls/hr Documented by: Cisatracurium Besylate 40 mg/ (Sodium Chloride) 100 mls @ 10.07 mls/hr IV .Q9H56M [facility]; Protocol Stop: 07/16/19 14:42 Last Admin: 06/16/19 14:59 Dose: 1 mcg/kg/min, 10.1 mls/hr Documented by: Sodium Chloride (Nss) 250 mls @ 15 mls/hr IV .[id number] PRN PRN Reason: For Transfusion Stop: 06/17/19 14:44 Phenylephrine HCl 20 mg/ (Dextrose) 502 mls @ 50.53 mls/hr IV .Q9H57M [facility]; Protocol Stop: 07/16/19 14:44 Last Admin: 06/16/19 14:59 Dose: 0.5 mcg/kg/min, 50.5 mls/hr Documented by: Vasopressin 20 units/ Sodium (Chloride) 101 mls @ 12.12 mls/hr IV .Q8H20M [facility] Stop: 07/16/19 14:44 Last Admin: 06/16/19 15:00 Dose: 0.04 unit/min, 12.1 mls/hr Documented by: Sodium Chloride (Nss) 250 mls @ 15 mls/hr IV .[id number] PRN PRN Reason: For Transfusion Stop: 08/23/19 14:45 Hydrocortisone Sodium (Succinate 50 mg/ Syringe) 1 mls @ 4 mls/min IV Q6H SHARRI Stop: 07/16/19 15:59 Last Admin: 06/16/19 15:57 Dose: 4 mls/min Documented by: Ioversol (Optiray 320 125ml) 89 ml IV ONCE PRN PRN Reason: Interaction Checking Stop: 06/18/19 14:37 Last Admin: 06/14/19 14:38 Dose: 89 ml Documented by: Ipratropium [place] (Atrovent 0.02% 0.5mg/2.5ml) 0.5 mg NEB Q6R SHARRI Stop: 07/15/19 12:59 Last Admin: 06/16/19 13:31 Dose: 0.5 mg Documented by: Levalbuterol HCl (Xopenex 1.25mg/0.5ml Neb) 1.25 mg NEB Q6R SHARRI Stop: 07/14/19 18:59 Last Admin: 06/16/19 13:31 Dose: 1.25 mg Documented by: Lisinopril (Zestril) 5 mg PO QAM SH[facility]RI Stop: 07/16/19 08:59 Last Admin: 06/16/19 11:18 Dose: Not Given Documented by: Miscellaneous (Icu Protocol For Hyperglycemia) 1 ea N/A PRN PRN; Protocol PRN Reason: Hyperglycemia Protocol Stop: 06/18/19 10:47 Multi-Ingredient Cream (Lacri-Lube) 1 appln OP Q2H PRN PRN Reason: eye protection if proned Stop: 07/16/19 14:20 Ondansetron HCl (Zofran) 4 mg IV Q4H PRN PRN Reason: Nausea And Vomiting Stop: 07/14/19 13:23 Pantoprazole Sodium (Protonix) 40 mg PO DAILY [facility] Stop: 07/15/19 10:44 Last Admin: 06/16/19 11:18 Dose: Not Given Documented by: Polyethylene Glycol (Miralax Powder Packet) 17 gm PO DAILY PRN PRN Reason: Constipation Stop: 07/16/19 08:11 Tamsulosin HCl (Flomax) 0.4 mg PO DAILY [facility] Stop: 07/15/19 10:44 Last Admin: 06/16/19 11:18 Dose: Not Given Documented by: Warfarin Sodium (Coumadin) 4 mg PO DAILY@1600 [facility] Stop: 07/15/19 15:59 Last Admin: 06/15/19 16:21 Dose: 4 mg Documented by: PG Care Time/CCT Total # of Minutes Spent Total Time Spent with Patient: Total time spent is greater than 50% in coor dination of care (as documented) at patient's floor/unit and/or counseling patient: Resident Activity Tracking Resident Involvement: Resident Care Provided Care Provided: Adult Hospital Medicine (1) PNA (pneumonia) Laterality: bilateral Lung location: lower lobe of lung Pneumonia type: due to unspecified organism Qualified Code(s): J18.1 - Lobar pneumonia, unspecified organism
--- NOTE | 2019-06-16 16:02 | XRay Report ---
XR chest 1V portable CLINICAL HISTORY: crepitus/ pneumothorax eval COMPARISON STUDY: 06/16/2019 at 2:26 PM FINDINGS: Unchanged subcutaneous emphysema. Unchanged pneumomediastinum. Endotracheal tube is 4 cm above the kierra. Trace right apical pneumothorax is unchanged. Nasogastric tube within the gastric fundus. Unchanging bilateral parenchymal infiltrative change. IMPRESSION: 1. Unchanged exam compared to the prior study. 2. Trace right apical pneumothorax unchanged. 3. Subcutaneous emphysema and pneumomediastinum also unchanged. The above report was generated using voice recognition software. It may contain grammatical, syntax or spelling errors. Electronically signed by: Nirmal Billingsley M.D. 06/16/2019 4:01 PM
[2019-06-16] MEDS ORDERED: ESMOLOL / NSS 2,500 MG/250 ML BAG IV STA (16:08)
[2019-06-16 16:18] LABS: Potassium 4.9 mmol/L (3.5-5.1)
[2019-06-16 16:20] LABS: Fibrinogen 682 mg/dl (184-400); Prothrombin Time 47.9 Seconds (9.0-12.0)
[2019-06-16 16:22] LABS: Partial Thromboplastin Ratio 1.7
[2019-06-16 16:23] LABS: D Dimer > 35200 ug/L FEU (0-500)
[2019-06-16 16:24] LABS: INR 5.3 (0.9-1.1)
--- NOTE | 2019-06-16 18:33 | Procedure Note ---
Procedure Note Date of Service June 16, 2019 Central Venous Catheter Indication: [Septic shock septic] Catheter type: [Triple-lumen catheter] Location: [Right femoral vein] Right femoral vein catheter placed emergently due to patient's inability to participate in informed consent. At this time, the risks of the procedure are less than the risks of NOT performing the procedure. A time out was taken and the correct patient and site identified. The patient was placed in the flat position and the skin was prepped in the standard fashion with chlorhexidine and full sterile drapes applied. The proper landmarks were identified with ultrasound, anesthetized with 1% lidocaine without epinephrine, and the needle was inserted through the skin in the standard fashion. The needle was carefully advanced into blood vessel lumen under ultrasound guidance. The guidewire was placed uneventfully. The vessel is dilated and the catheter was placed. It was sutured into position. There was good blood return from all ports. The patient tolerated the procedure well and there were no complications. Coding CPT Codes Tubes, Drains, and Vasc Access - Tubes, Drains, and Vasc Access: Ultrasound Guidance For Vascular ([id number])
--- NOTE | 2019-06-16 18:38 | Procedure Note ---
Procedure Note Date of Service June 16, 2019 Endotracheal Intubation Indication [acute hypoxemic respiratory failure]. The procedure was done emergently as the patient was in respiratory distress. The patient was on 100% oxygen via a BiPAP prior to the procedure. Suction, airway equipment, RSI drugs, respiratory equipment, and appropriate personnel were prepared prior to the initiation of the procedure. A time out was taken. Induction was performed with [30 mg of etomidate, 5 mg of Versed and 100 mcg of fentanyl]. After observing the clinical benefit of the medications, the airway was easily visualized utilizing a [glide scope]. A [8] size ETT tube was placed atraumatically to [22] cm using standard technique. The cuff inflated without signs of malfunction. There were bilateral breath sounds, positive colormetric change, no gastric sounds, a good capnography waveform, and post procedure pulse oximetry was [85]%. Post intubation sedation and paralysis was administered using [propofol, fentanyl and vecuronium]. Coding
[2019-06-16] MEDS ORDERED: VECURONIUM BROMIDE 10 MG VIAL IV ONE (20:41)
[2019-06-16] MEDS ORDERED: ETOMIDATE 2 MG/ML 20 ML VIAL IV ONE (20:41)
[2019-06-16] MEDS ORDERED: fentaNYL citrate 100 MCG/2 ML CARP IV ONE (20:41)
[2019-06-16] MEDS ORDERED: MIDAZOLAM HCL 5 MG/ML VIAL IV ONE (20:41)
--- NOTE | 2019-06-16 20:46 | Critical Care Progress Note ---
Date of Service June 16, 2019 Subjective 1900: Was approached by nursing staff as he reports that the family had many que stions as far as continued care versus proceeding with comfort measures only. I did review patient's chart in great detail. I had an extensive conversation with the patient's , Poonam, at bedside. She has good understanding of current medical status including his significant state of extremis at this point. She states that she knows that he would not want to continue in this current state. She is leaning towards comfort measures, but is waiting for family members to arrive to be with him. At this point, we will continue on current course including sedation, paralytics, and vasopressors. I was summoned by patient's grandson and family. At this point, they are wishing to proceed with comfort measures at this time. They had many questions regarding transition to comfort measures only which were answered to the best of my capability. At this point, we will discontinue the paralytic and continue to check [id number] for drug clearance prior to discontinuation of sedation and eventual terminal extubation. Will titrate down medications as seen fit. Goal is for optimization of comfort at this point with the goal transition to to be as smooth as possible. 2034: Discontinuation of Nimbex. 2149: Patient was reassessed at bedside, he is turning his head side to side. He will open his eyes. He is fighting the tube. No purposeful interaction/mute communication. Family is at bedside. Discussed extubation at this point. They are comfortable at this time. Did receive one-time bolus of 25 mcg fentanyl for increasing agitation. After family left the room, patient terminally extubated at 2156. Will continue with fentanyl drip for comfort and air hunger as he has been on this medication most of the day. Discontinuation of remainder medications including vasopressors. Provided support to the family. Did add Ativan if needed for agitation. I have personally spent 50 minutes of critical care time in the direct management of this patient. This is a life/limb threatening event. This includes time spent evaluating patient, direct bedside care, chart review, placing orders, interpretation of diagnostic studies, discussion with consultants, patie nt, and family members, as well as other required patient management activities. This time is exclusive of all separately billable procedures, and teaching time and separate from and in addition to any other critical care service time. Results & Data Vital Signs (Past 12 Hours) Vital Signs Temp Pulse Pulse Pulse Resp BP Pulse Ox 06/16/19 20:20 122 H 122 H 28 H 93 06/16/19 20:00 36.8 C 112 H 102/84 93 06/16/19 19:00 113 H 86/66 L 93 06/16/19 17:30 37.2 C 136 H 91 06/16/19 17:00 139 H 93/66 L 94 06/16/19 16:30 143 H 95 06/16/19 16:16 145 H 28 H 97 06/16/19 16:00 141 H 91/75 L 98 06/16/19 15:35 123 H 26 H 98 06/16/19 15:30 144 H 97 06/16/19 15:00 37 C 162 H 92 06/16/19 14:30 135 H 79/55 L 82 L 06/16/19 14:15 140 H 91/67 L 85 L 06/16/19 14:00 37.4 C 129 H 97/70 L 83 L 06/16/19 13:34 132 H 28 H 06/16/19 13:30 138 H 122/69 85 L 06/16/19 13:15 140 H 86 L 06/16/19 13:00 37.2 C 146 H 125/81 86 L 06/16/19 12:50 25 H 06/16/19 12:45 125 H 111/62 84 L 06/16/19 12:30 138 H 119/62 84 L 06/16/19 12:22 135 H 25 H 84 L 06/16/19 12:15 134 H 114/87 84 L 06/16/19 12:00 134 H 122/73 84 L 06/16/19 11:45 115 H 121/65 88 L 06/16/19 11:30 115 H 115/67 87 L 06/16/19 11:15 109 H 104/59 L 85 L 06/16/19 11:00 38.9 C H 123 H 107/67 87 L 06/16/19 10:50 115 H 28 H 84 L 06/16/19 10:44 85 124/73 84 L 06/16/19 10:31 139 H 125/82 89 L 06/16/19 10:23 147 H 135/87 91 06/16/19 10:00 142/125 H 85 L 06/16/19 09:55 123 H 47 H 128/76 91 06/16/19 09:53 125 H 34 H 91 06/16/19 09:45 132 H 39 H 100 06/16/19 09:30 128 H 43 H 136/83 89 L 06/16/19 09:15 146 H 49 H 107/91 89 L 06/16/19 09:08 156 H 34 H 90 06/16/19 09:00 140 H 48 H 137/108 H 89 L 06/16/19 08:46 144 H 43 H 155/90 H 92 PG Care Time/CCT Total # of Minutes Spent Total Time Spent with Patient: Total time spent is greater than 50% in coordination of care (as documented) at patient's floor/unit and/or counseling patient: Critical Care Time: Yes Total Critical Care Time: 50
[2019-06-16] MEDS ORDERED: LORazepam 1 MG/2 ML VIAL IV PRN (21:37)
[2019-06-16] MEDS ORDERED: fentaNYL citrate 100 MCG/2 ML VIAL IV ONE (21:58)
[2019-06-17] MEDS: LORazepam 1 MG/2 ML VIAL IV PRN ×2 (00:21→04:39)
[2019-06-17] MEDS: fentaNYL DRIP 1,250 MCG/250 ML BAG IV SCH ×2 (04:35→17:56)
--- NOTE | 2019-06-17 07:13 | Critical Care Progress Note ---
Date of Service June 17, 2019 Results & Data Vital Signs (Past 12 Hours) Vital Signs Temp Pulse Pulse Resp BP Pulse Ox 06/16/19 22:00 28 H 06/16/19 20:20 122 H 122 H 28 H 93 06/16/19 20:00 36.8 C 112 H 102/84 93 PG Care Time/CCT Total # of Minutes Spent Total Time Spent with Patient: Total time spent is greater than 50% in coordination of care (as documented) at patient's floor/unit and/or counseling patient:
[2019-06-17] MEDS: PHENYLEPHRINE HCL 20 MG in DEXTROSE 5% 500 ML IV SCH (07:21)
[2019-06-17] MEDS ORDERED: VANCOMYCIN TROUGH ONE (09:30)
[2019-06-17] MEDS: CEFEPIME 2,000 MG in SYRINGE 7.5 ML IV SCH ×2 (10:33→21:33)
[2019-06-17 11:34] LABS: BUN Creatinine Ratio 34.8 (10-20); Calcium 8.4 mg/dl (8.5-10.1); Creatinine Clr Calc Pharmacy 33.5 ml/min; Est GFR (African American) 46.2; Est GFR (Non-African American) 39.8; Potassium 4.9 mmol/L (3.5-5.1)
[2019-06-17 11:47] LABS: iSTAT Art Bld Gas pCO2 Correct 36 mmHg (35-46); iSTAT Art Bld Gas pH Corrected 7.362 (7.35-7.45); iSTAT Arterial Blood Gas HCO3 21 meg/L (19-24); iSTAT Arterial Blood Gas pCO2 38 mmHg (35-46); iSTAT Arterial Blood Gas pH 7.35 (7.35-7.45); iSTAT Arterial Blood Gas pO2 47 mmHg (80-95); iSTAT Arterial Blood Gas pO2 C 44; iSTAT Carbon Dioxide 22 mEq/l (24-31); iSTAT Site Art Line
[2019-06-17] MEDS: dilTIAZem HCl 125 MG in DEXTROSE 5% 100 ML IV SCH ×2 (12:09→21:33)
[2019-06-17] MEDS: HYDROCORTISONE SOD 50 MG in SYRINGE 0 ML IV SCH ×2 (12:28→17:52)
--- NOTE | 2019-06-17 13:32 | Family Medicine Progress Note ---
Date of Service June 17, 2019 Assessment & Plan (1) PNA (pneumonia): 83 yo M with PMH Afib, HTN readmitted after recent hospitalization for PNA (06/03-06/07) and d/c on Augmentin. Represents with ongoing fatigue and SOB found to have increased opacities at the R lung base. Later in admission, need for mech vent due to ongoing SOB not responsive to BiPAP. Pt now on HFNC with family deciding to pursue continued tx moving forward. HAP/Acute Hypoxic Resp Failure -CTA: Extensive bilateral consolidation, greater within the right lung. The findings favor multifocal pneumonia. Additionally, small, partially loculated right pleural effusion -In discussing with family today, the reason they decided for comfort measures/extubation was because they were under the impression that the medical course was not improving with regimen pt was receiving. There is definitely an aspect of medical illiteracy and lack of communication that the family felt, which predisposed them to make their decision. Extensive discussion had today with family about goals and residential prognosis, and decision was made to continue treatment moving forward. Family in agreement with above plan and verbalized understanding -Cont with IV cefepime. Given white count and no improvement in breathing status, added Levaquin for added double gram neg coverage along with atypical coverage -->urine legionella neg -IV solucortef 50 mg q6h -On HFNC at present . ABG showed good ventilation, and hypoxia. Family states that mech vent would be ok if in acute resp failure -Blood cx NGTD -MRSA neg -for restlessless/agitation: trial to the IV Tylenol, weaning the fentanyl to as little as possible to keep him comfortable, trying to minimize respiratory suppression Atrial fibrillation with RVR - Continue cardizem gtt. If not rate controlled <110 then Lopressor 2.5 mg q4h prn added . Can consider dig loading additionally if required -Will transition to home Cardizem 360 mg p.o. moving forward once able -Cont on ICU -AC with Heparin -ECHO: LV systolic fxn is normal. No regional wall motion abnormalities. EF 50- 55%. No significant valvular pathology HTN -holding home lisinopril 5 mg Restless Legs -IV Tylenol -pt not tolerable to SCD's FEN/GI: NPO DVT Prophylaxis: Heparin FULL CODE Disposition: ICU Supervising Physician Co-Signing Physician Notes I personally examined the patient and verified all crockett points of history and exam, discussed case, and agree with decision making with Dr Banda. Multiple visits throughout the day, as well as multiple discussions with family. Last night, feeling like he was not going to get better and would not want to be in a prolonged ventilated state, the family requested terminal extubation. Once the patient survive through the night and, in fact, seemed relatively stable, they decided they would rather have ongoing aggressive care. Patient himself is not able to offer any HPI or review of systems. He is lying in bed asleep but appears to be only in mild respiratory distress. With a loud voice in his ear he will awaken, and answer some questions with yes or no, as well as speak somewhat nonsensically but in a conversational radha. Breathing is unlabored mild accessory muscles rales on the right more than the left, good air entry, good effort. No focal neuro deficits. Abdomen soft. Extremities show no edema. Acute hypoxic respiratory failurerelated to healthcare associated pneumoniahe initially was admitted and stabilized on IV antibiotics and fairly aggressive supportive care with his oxygenation. Yesterday he declined to requiring intubation, appearing most likely due to respiratory fatigue given the high load of pneumonia in his lungs, versus less likely but possible developing resistance of his current pathogen or overgrowth of yet another pathogenhence Levaquin was initiated for double coverage. Healthcare associated pneumoniacontinue double coverage with cefepime and Levaquin. MRSA nares negative, urine Legionella negative, therefore most likely this was a healthcare associated gram-negative pathogen. Given how he looks compared to when I last saw him with his pneumonia last admission (I last saw him 2 days before discharge, and while he was requiring 2 to 4 L of nasal cannula, it seemed mostly related to his A. fib/RVR, and he was requesting to go home in spite of tachycardia but was still requiring IV control and mild relative hypoxia), it seems almost certain that his course of disease process was a community-acquired pneumonia during last admission that was getting better on Augmentin, followed by a second pneumonia of healthcare associated pathogens that led to his current admission and decline. AKIrelated to the pneumonia. Gentle IV fluids. Follow atrial fibrillationrate control with diltiazem/augment with IV metoprolol as needed. Could add digoxin loading on top if required. Currently coagulopathic, hold Coumadin. Follow INR. Restless legsIV Tylenol. DVT prophylaxisanticoagulated. In regards to the patient's status and prognosis, extensive discussions were had with the family throughout the day. Last night/overnight they felt that he was not going to get better and asked that he be extubated, but then today whenever he did not pass immediately, they revisited their decisions. This morning we reinitiated antibiotics, and escalated his oxygen. ABG was checked that showed good ventilation, and hypoxia on par with what was seen on pulse ox. Diltiazem drip was reinitiated in regards to his atrial fibrillation. Orders were given to wean the fentanyl so as to not cause more respiratory suppression. Patient rechecked later in the afternoon, family had just discussed care with ICU and then more demanding me to transfer him to [facility]. Spending an hour (on the phone with Yaneth, discussing with case management, and then back on the phone with [facility]) unfortunately transfer was not accepted because he did not require procedures/specialists not available at this facility. When we went back to re- discussed the situation with the family, we discussed piece by piece all of his care. We are all in agreement that continuing aggressive management of the pneumonia, aggressive management of the atrial fibrillation, and cautiously proceeding with aggressive care knowing that he is sick enough that he may still pass, but that it is reasonable to try to get him through this acute illness. When it came to the question of his hypoxia, we discussed reintubation versus not. Initially the was adamant against reintubation, but the son then noted that it was more because of concerns of the patient being permanently ventilated. When he framed it as something that would be a "trial" on the order of a few days to try to get the patient through his acuity, the family were then all in agreement that reintubation would be acceptable. The , however, did note that she would prefer this only be in true emergency/true acute respiratory failure type standards, rather than due to his current persistent hypoxia/and an attempt to let him rest. We also discussed the fentanyl, with my concerns of it causing respiratory suppression, with their concerns of him not wanting to be restless/uncomfortable/agitated. In the end we agreed to give trial to the IV Tylenol, weaning the fentanyl to as little as possible to keep him comfortable, so as to minimize respiratory suppression. We also discussed that if we are in mode of trying to do aggressive care, if it seems that all of the fentanyl is causing respiratory suppression, we should stop it immediately even if we do not yet have other acceptable comfort medications. All were in agreement with above. ABGs will be followed, continue aggressive care. Family was okay with ICU staff being involved to manage the vent if the need were to arise, but otherwise want the primary team driving the decision making. They were appreciative of care. They expressed an understanding that he may not survive this hospital stay, but would like to see how he does with aggressive care, which seems quite reasonable. I openly expressed my concern of whether or not there could be hypoxia induced brain injury from the time that he was technically comfort measures only, but did note that his responsiveness (even nonsensically) is somewhat reassuring in this regard. Total time spread out across the day probably greater than 90 minutes Subjective 83 yo M found in bed this AM. Overnight reports that family had discussions with pediatrician managing partner and agreed to extubate pt. In discussing with family today, the reason they decided for comfort measures/extubation was because they were under the impression that the medical course was not improving with regimen pt was receiving. There is definitely an aspect of medical illiteracy and lack of communication that the family felt, which predisposed them to make their decision. Extensive discussion had today with family about goals and intermediate manager prognosis, and decision was made to continue treatment moving forward. Family in agreement with above plan and verbalized understanding. Family verbalized that they would be ok with mech vent if need be with the understanding that this would be a temporary measure that could last a couple of days. Of note, at one point family had requested to transfer pt to [facility] for further tx. We obliged this request and ultimately they did not accept the pt given insurance complications of doing a lateral transfer. Family understood and ok with continuing care at [facility]. See attending attestation otherwise. Review of Systems Review of Systems: All systems reviewed & are unremarkable except as noted in HPI & below Physical Exam Constitutional: WD/WN, vitals as above Eyes: PERRL, conjunctivae normal, anicteric sclerae Respiratory: + labored breathing, + retractions and + uses accessory muscles Auscultation: + crackles Cardiovascular: Rate/Rhythm: + tachycardic and + irregularly irregular Gastrointestinal (Abdomen): normal bowel sounds, soft, nontender, no hepatosplenomegaly Skin: no rashes, warm and dry Psychiatric: A+Ox3, euthymic affect Results & Data Vital Signs (Past 12 Hours) Vital Signs Temp Pulse Pulse Resp BP Pulse Ox 06/17/19 13:00 37.7 C H 112 H 31 H 130/61 86 L 06/17/19 12:37 109 H 35 H 142/80 H 93 06/17/19 12:30 110 H 29 H 85 L 06/17/19 12:00 107 H 33 H 88 L 06/17/19 11:50 108 H 26 H 90 06/17/19 11:30 107 H 25 H 82 L 06/17/19 11:00 105 H 25 H 86 L 06/17/19 10:00 36.1 C L 101 H 32 H 83 L 06/17/19 09:00 96 H 22 86 L 06/17/19 08:00 97 H 23 85 L 06/17/19 07:00 92 H 20 83 L Laboratory Results Laboratory Results - last 24 hr 06/16/19 06/16/19 06/16/19 06:29 12:00 12:00 WBC RBC Hgb Hct MCV MCH MCHC RDW Std Deviation RDW Coeff of Hermelinda Plt Count MPV Immature Gran % (Auto) Neut % (Auto) Lymph % (Auto) Hamlin % (Auto) Eos % (Auto) Baso % (Auto) Immature Gran # (Auto) Neut # (Auto) Lymph # (Auto) Hamlin # (Auto) Eos # (Auto) Baso # (Auto) Echinocytes PT INR APTT PTT Ratio Fibrinogen Fibrin Degrad Products D-Dimer Sample Site POC pH POC pCO2 POC pO2 POC HCO3 POC Total CO2 POC Base Excess ABG pH (Temp Correct) ABG pCO2 (Temp Corrct POC ABG pO2 at Pt Temp POC ABG O2 Sat Davidson Test O2 Delivery Device POC O2 Rate Minute Ventilation POC FiO2 Tidal Volume PEEP Sodium Potassium Chloride Carbon Dioxide Anion Gap BUN Creatinine Est Cr Clr Drug Dosing Est GFR ( Amer) Est GFR (Non-Af Amer) BUN/Creatinine Ratio Glucose Lactate Calcium Phosphorus Magnesium Nasal Screen MRSA (PCR) Negative Urine Legionella Ag NOT DETECTED Blood Type Blood Type Recheck A Positive Antibody Screen Crossmatch 06/16/19 06/16/19 06/16/19 13:44 14:53 14:53 WBC 29.53 H RBC 4.39 L Hgb 13.0 L Hct 37.7 L MCV 85.9 MCH 29.6 MCHC 34.5 RDW Std Deviation 41.7 RDW Coeff of Hermelinda 13.2 Plt Count 478 H MPV 9.5 Immature Gran % (Auto) 1.2 Neut % (Auto) 88.9 Lymph % (Auto) 2.8 Hamlin % (Auto) 7.0 Eos % (Auto) 0.0 Baso % (Auto) 0.1 Immature Gran # (Auto) 0.35 H Neut # (Auto) 26.25 H Lymph # (Auto) 0.84 L Hamlin # (Auto) 2.06 H Eos # (Auto) 0.01 Baso # (Auto) 0.02 Echinocytes 1+ PT INR APTT PTT Ratio Fibrinogen Fibrin Degrad Products D-Dimer Sample Site L Radial POC pH 7.12 L* POC pCO2 76 H POC pO2 70 L POC HCO3 25 H POC Total CO2 27 POC Base Excess -5.0 ABG pH (Temp Correct) ABG pCO2 (Temp Corrct POC ABG pO2 at Pt Temp POC ABG O2 Sat 86.0 L Dvaidson Test Pass O2 Delivery Device Ventilator POC O2 Rate 25 Minute Ventilation POC FiO2 100 Tidal Volume PEEP 20 Sodium Potassium Chloride Carbon Dioxide Anion Gap BUN Creatinine Est Cr Clr Drug Dosing Est GFR ( Amer) Est GFR (Non-Af Amer) BUN/Creatinine Ratio Glucose Lactate Calcium Phosphorus Magnesium Nasal Screen MRSA (PCR) Urine Legionella Ag Blood Type A Positive Blood Type Recheck Antibody Screen NEGATIVE Crossmatch See Detail 06/16/19 06/16/19 06/16/19 14:53 14:53 14:55 WBC RBC Hgb Hct MCV MCH MCHC RDW Std Deviation RDW Coeff of Hermelinda Plt Count MPV Immature Gran % (Auto) Neut % (Auto) Lymph % (Auto) Hamlin % (Auto) Eos % (Auto) Baso % (Auto) Immature Gran # (Auto) Neut # (Auto) Lymph # (Auto) Hamlin # (Auto) Eos # (Auto) Baso # (Auto) Echinocytes PT 47.9 H INR 5.3 H APTT 47.0 H* PTT Ratio 1.7 Fibrinogen 682 H Fibrin Degrad Products D-Dimer > 58201 H* Sample Site POC pH POC pCO2 POC pO2 POC HCO3 POC Total CO2 POC Base Excess ABG pH (Temp Correct) ABG pCO2 (Temp Corrct POC ABG pO2 at Pt Temp POC ABG O2 Sat Davidson Test O2 Delivery Device POC O2 Rate Minute Ventilation POC FiO2 Tidal Volume PEEP Sodium 134 L Potassium 4.9 D Chloride 104 Carbon Dioxide 23 Anion Gap 7.0 BUN 42 H Creatinine 1.45 H D Est Cr Clr Drug Dosing 36.7 Est GFR ( Amer) 51.6 Est GFR (Non-Af Amer) 44.5 BUN/Creatinine Ratio 29.2 H Glucose 181 H Lactate 2.0 Calcium 8.4 L Phosphorus 6.6 H Magnesium 2.3 Nasal Screen MRSA (PCR) Urine Legionella Ag Blood Type Blood Type Recheck Antibody Screen Crossmatch 06/16/19 06/16/19 06/17/19 15:24 15:28 11:08 WBC RBC Hgb Hct MCV MCH MCHC RDW Std Deviation RDW Coeff of Hermelinda Plt Count MPV Immature Gran % (Auto) Neut % (Auto) Lymph % (Auto) Hamlin % (Auto) Eos % (Auto) Baso % (Auto) Immature Gran # (Auto) Neut # (Auto) Lymph # (Auto) Hamlin # (Auto) Eos # (Auto) Baso # (Auto) Echinocytes PT INR APTT PTT Ratio Fibrinogen Fibrin Degrad Products >40 H D-Dimer Sample Site Art Line POC pH 7.20 L POC pCO2 58 H POC pO2 117 H POC HCO3 22 POC Total CO2 24 POC Base Excess -6.0 ABG pH (Temp Correct) ABG pCO2 (Temp Corrct POC ABG pO2 at Pt Temp POC ABG O2 Sat 97.0 H Davidson Test NA O2 Delivery Device Ventilator POC O2 Rate 26 Minute Ventilation 10.4 POC FiO2 100 Tidal Volume 400 PEEP 14 Sodium 137 Potassium 4.9 Chloride 106 Carbon Dioxide 24 Anion Gap 7.0 BUN 55 H Creatinine 1.59 H Est Cr Clr Drug Dosing 33.5 Est GFR ( Amer) 46.2 Est GFR (Non-Af Amer) 39.8 BUN/Creatinine Ratio 34.8 H Glucose 94 Lactate Calcium 8.4 L Phosphorus Magnesium Nasal Screen MRSA (PCR) Urine Legionella Ag Blood Type Blood Type Recheck Antibody Screen Crossmatch 06/17/19 11:33 WBC RBC Hgb Hct MCV MCH MCHC RDW Std Deviation RDW Coeff of Hermelinda Plt Count MPV Immature Gran % (Auto) Neut % (Auto) Lymph % (Auto) Hamlin % (Auto) Eos % (Auto) Baso % (Auto) Immature Gran # (Auto) Neut # (Auto) Lymph # (Auto) Hamlin # (Auto) Eos # (Auto) Baso # (Auto) Echinocytes PT INR APTT PTT Ratio Fibrinogen Fibrin Degrad Products D-Dimer Sample Site Art Line POC pH 7.35 POC pCO2 38 POC pO2 47 L POC HCO3 21 POC Total CO2 22 L POC Base Excess -5.0 ABG pH (Temp Correct) 7.362 ABG pCO2 (Temp Corrct 36 POC ABG pO2 at Pt Temp 44 POC ABG O2 Sat 81.0 L Davidson Test NA O2 Delivery Device Other POC O2 Rate Minute Ventilation POC FiO2 Tidal Volume PEEP Sodium Potassium Chloride Carbon Dioxide Anion Gap BUN Creatinine Est Cr Clr Drug Dosing Est GFR ( Amer) Est GFR (Non-Af Amer) BUN/Creatinine Ratio Glucose Lactate Calcium Phosphorus Magnesium Nasal Screen MRSA (PCR) Urine Legionella Ag Blood Type Blood Type Recheck Antibody Screen Crossmatch Medications Administered Current Inpatient Medications Heparin Sodium (Beef Lung) (Heparin Sod 10 Unit/Ml Flush) 5 ml FLUSH PRN PRN PRN Reason: Flush Stop: 07/16/19 22:53 Fentanyl Citrate (Fentanyl Drip) 1,250 mcg in 250 mls @ 5 mls/hr IV .Q24H [facility]; Protocol Stop: 06/30/19 10:42 Last Titration: 06/17/19 11:43 Dose: 25 mcg/hr, 5 mls/hr Documented by: Sodium Chloride (Nss) 250 mls @ 15 mls/hr IV .[id number] PRN PRN Reason: For Transfusion Stop: 06/17/19 14:45 Lorazepam (Ativan) 1 mg in 2 mls @ 2 mls/min IV Q2H PRN PRN Reason: Agitation Stop: 07/17/19 00:06 Last Admin: 06/17/19 04:39 Dose: 2 mls/min Documented by: Cefepime HCl 2,000 mg/ Syringe 20 mls @ 5.5 mls/min IV Q12H [facility]; Protocol Stop: 06/24/19 09:59 Last Admin: 06/17/19 10:33 Dose: 5.5 mls/min Documented by: Levofloxacin/Dextrose (Levaquin/D5w) 750 mg in 150 mls @ 100 mls/hr IV Q48H [facility]; Protocol Stop: 06/25/19 10:59 Diltiazem HCl 125 mg/ Dextrose 125 mls @ 10 mls/hr IV .[id number] [facility]; Protocol Stop: 07/17/19 11:59 Last Titration: 06/17/19 12:46 Dose: 10 mg/hr, 10 mls/hr Documented by: Hydrocortisone Sodium (Succinate 50 mg/ Syringe) 1 mls @ 4 mls/min IV Q6H [facility] Stop: 07/17/19 11:59 Last Admin: 06/17/19 12:28 Dose: 4 mls/min Documented by: Ondansetron HCl (Zofran) 4 mg IV Q4H PRN PRN Reason: Nausea And Vomiting Stop: 07/14/19 13:23 Warfarin Sodium (Coumadin) 4 mg PO DAILY@1600 [facility] Stop: 07/15/19 15:59 Last Admin: 06/15/19 16:21 Dose: 4 mg Documented by: PG Care Time/CCT Total # of Minutes Spent Total Time Spent with Patient: Total time spent is greater than 50% in coordination of care (as documented) at patient's floor/unit and/or counseling patient: Critical Care Time: Yes Total Critical Care Time: 90 Resident Activity Tracking Resident Involvement: Resident Care Provided Care Provided: Adult Hospital Medicine Critical Care Time Critical Care Time: Yes Total Critical Care Time: 90 (1) PNA (pneumonia) Laterality: bilateral Lung location: lower lobe of lung Pneumonia type: due to unspecified organism Qualified Code(s): J18.1 - Lobar pneumonia, unspecified organism
--- NOTE | 2019-06-17 15:38 | Critical Care Progress Note ---
Date of Service June 17, 2019 Assessment & Plan (1) Admitted to intensive care unit: The patient has severe hypoxemic respiratory failure due to worsening pneumonia. Patient was discharged June 07, 2019 and was readmitted to the hospital on June 14, 2019. Patient has multifocal pneumonia and was intubated yesterday due to worsening tachypnea and hypoxemic respiratory failure. Subsequent to the intubation, patient continued to be hypoxemic. He was placed on a lung protective ventilation strategy with targeted tidal volumes of 400 mL's and a PEEP of 18. He subsequently developed pneumomediastinum likely secondary to barotrauma and his PEEP was weaned down to 14 cm H2O. His oxygen saturations did improve with decreased PEEP and neuromuscular blockade. He then developed septic shock and required numerous pressors. We placed a right femoral central line emergently. Pressors were continued. Overnight the patient was compassionately extubated after discussion with the family was had by the overnight PA-C. This morning, it appears to primary team had a discussion with the family and the family and indicated that they would want to continue with some conservative measures which included diltiazem drip to control his atrial fibrillation and high flow nasal cannula for his hypoxemia. I feel that given the patient's tenuous respiratory status, continuing a fentanyl infusion puts him at risk for aspiration and worsening respiratory failure. I do think it is appropriate to continue a fentanyl infusion for air hunger and pain, however, it would be best to continue this under the understanding that he is a full comfort care status. The family is clearly very upset and they would like more time to see if there is any potential for recovery. At this time, we will sign off, however, we are always available if the need should arise. Thank you for the consultation and please do not hesitate to call. (2) Acute respiratory failure with hypoxia: (3) PNA (pneumonia): (4) Hypoxia: Subjective Patient was evaluated in the room today. Patient's and numerous family members at bedside. Patient is currently on a fentanyl drip at 12.5 mcg/h. He also has a Cardizem drip running. He is laying in bed with a high flow nasal cannula at 4 L and 100% FiO2. He appears to be moaning occasionally and moves his head side to side. I had a discussion with the family at bedside regarding how to proceed in his care. He was compassionately extubated overnight based on discussion between the family and the provider overnight and this conversation was documented by Camilo Kwok PA-C. I asked the whether she would like to proceed with moving towards focusing on the patient's comfort. He currently has a high flow nasal cannula and a diltiazem drip running as noted. It does appear that he is still somewhat uncomfortable and would likely benefit from more analgesic medication for air hunger and possibly pain. The became very upset at the proposition of changing his care in any way and began yelling at me. She said that his care was in God's hands and that she did not want anything to change in his care. She alluded to higher power numerous occasions and indicated to me that there is nothing that we can do to change the outcome for her . I tried to reiterate that we were trying to do everything in the best interest of her and trying to respect the family and her 's wishes. I also clarified that we usually only use continuous fentanyl infusions for people that are either on the ventilator with a secured airway or who are under complete comfort care status/hospice care. She became more upset and did not want to continue discussion any further. Physical Exam Physical Exam: The patient appeared to be lying in bed with a high flow nasal cannula and occasionally moaning. He would move his head back and forth on his pillow. He did appear to have shallow tachypneic respirations. Results & Data Vital Signs (Past 12 Hours) Vital Signs Temp Pulse Pulse Resp BP Pulse Ox 06/17/19 14:00 106 H 28 H 06/17/19 13:30 109 H 26 H 126/69 88 L 06/17/19 13:00 99.9 F H 112 H 31 H 130/61 86 L 06/17/19 12:37 109 H 35 H 142/80 H 93 06/17/19 12:30 110 H 29 H 85 L 06/17/19 12:00 107 H 33 H 88 L 06/17/19 11:50 108 H 26 H 90 06/17/19 11:30 107 H 25 H 82 L 06/17/19 11:00 105 H 25 H 86 L 06/17/19 10:00 97.0 F L 101 H 32 H 83 L 06/17/19 09:00 96 H 22 86 L 06/17/19 08:00 97 H 23 85 L 06/17/19 07:00 92 H 20 83 L PG Care Time/CCT Total # of Minutes Spent Total Time Spent with Patient: Total time spent is greater than 50% in coordination of care (as documented) at patient's floor/unit and/or counseling patient: (1) PNA (pneumonia) Laterality: bilateral Lung location: lower lobe of lung Pneumonia type: due to unspecified organism Qualified Code(s): J18.1 - Lobar pneumonia, unspecified organism
--- NOTE | 2019-06-17 15:43 | Critical Care Progress Note ---
Date of Service June 17, 2019 Subjective Update of course: Per discussion with the ICU provider last evening, decision was made by family to extubate the patient and transition to comfort care. Earlier today, upon discussion with the hospitalist team, family wished to proceed with care, without aggressive measurements. Patient was to remain DNR/DNI. Myself and Dr. Rivera attempted to further discuss goals of care with family members at the bedside. The of the patient became very upset during this discussion. However during the discussion was established that the did not want aggressive escalation of care, and if the patient continues to decompensate with current care it will be "in God's hands" and he will be allowed to pass. Currently he is on high flow nasal cannula and a Cardene drip. This is currently being managed by hospitalist team. I have discussed the case with Dr. Rodríguez, the primary team, and we are signing off at this time, as family does not wish to pursue aggressive measures with care.
[2019-06-17] MEDS ORDERED: ACETAMINOPHEN 1,000 MG/100 ML VIAL IV PRN (17:40)
[2019-06-17] MEDS ORDERED: fentaNYL DRIP 1,250 MCG/250 ML BAG IV SCH (17:45)
[2019-06-17] MEDS ORDERED: METOPROLOL TARTRATE 1 MG/ML VIAL IV ONE (17:51)
[2019-06-17 18:41] LABS: iSTAT Art Bld Gas pCO2 Correct 31 mmHg (35-46); iSTAT Art Bld Gas pH Corrected 7.433 (7.35-7.45); iSTAT Arterial Blood Gas HCO3 21 meg/L (19-24); iSTAT Arterial Blood Gas pCO2 30 mmHg (35-46); iSTAT Arterial Blood Gas pH 7.45 (7.35-7.45); iSTAT Arterial Blood Gas pO2 45 mmHg (80-95); iSTAT Arterial Blood Gas pO2 C 49; iSTAT Carbon Dioxide 21 mEq/l (24-31); iSTAT FiO2 100 %; iSTAT Hematocrit 34 % (42-52); iSTAT Hemoglobin 11.6 g/dl (14.0-18.0); iSTAT Potassium 4.6 mEq/L (3.3-5.0); iSTAT Site Art Line; iSTAT Sodium 137 mEq/L (135-144)
[2019-06-17] MEDS ORDERED: METOPROLOL TARTRATE 1 MG/ML VIAL IV SCH (20:00)
[2019-06-17] MEDS: METOPROLOL TARTRATE 1 MG/ML VIAL IV SCH (20:17)
[2019-06-17] MEDS ORDERED: methylPREDNISolone 80 MG in SYRINGE 0 ML IV STA (22:53)
[2019-06-17] MEDS ORDERED: VANCOMYCIN CONSULT ACTIVE PRN ×2 (22:53)
[2019-06-17] MEDS ORDERED: VANCOMYCIN HCL 1,000 MG in SODIUM CHLORIDE 0.9% 500 ML IV SCH (23:00)
[2019-06-17] MEDS: fentaNYL citrate 100 MCG/2 ML VIAL IV PRN (23:54)
[2019-06-18] MEDS ORDERED: VANCOMYCIN HCL 1,500 MG in SODIUM CHLORIDE 0.9% 500 ML IV SCH
[2019-06-18] MEDS: METOPROLOL TARTRATE 1 MG/ML VIAL IV SCH ×7 (00:14→23:32)
[2019-06-18] MEDS: fentaNYL citrate 100 MCG/2 ML VIAL IV PRN ×3 (03:00→09:22)
[2019-06-18 05:06] LABS: BUN Creatinine Ratio 37.4 (10-20); Calcium 8.3 mg/dl (8.5-10.1); Creatinine Clr Calc Pharmacy 36.2 ml/min; Est GFR (African American) 50.8; Est GFR (Non-African American) 43.8; Potassium 4.3 mmol/L (3.5-5.1)
[2019-06-18 05:07] LABS: iSTAT Allen Test Pass; iSTAT Art Bld Gas pCO2 Correct 27 mmHg (35-46); iSTAT Arterial Blood Gas HCO3 19 meg/L (19-24); iSTAT Arterial Blood Gas pCO2 28 mmHg (35-46); iSTAT Arterial Blood Gas pH 7.43 (7.35-7.45); iSTAT Arterial Blood Gas pO2 49 mmHg (80-95); iSTAT Arterial Blood Gas pO2 C 47; iSTAT Carbon Dioxide 20 mEq/l (24-31); iSTAT Site R Radial
[2019-06-18 05:19] LABS: Hematocrit (blood only) 35.1 % (42-52); Hemoglobin 11.9 g/dL (14.0-18.0); Mean Corpuscular Hemoglobin 28.3 pg (25-34); Mean Corpuscular Hgb Conc 33.9 g/dL (32-36); Mean Corpuscular Volume 83.6 fL (80-100); Mean Platelet Volume 9.5 fL (7.4-10.4); Platelet Count 261 K/uL (130-400); RDW Coefficient of Variation 13.3 % (11.5-14.5); White Blood Count 19.73 K/uL (4.8-10.8)
[2019-06-18 05:20] LABS: Basophils # (auto) 0.01 K/uL (0-0.2); Basophils % (auto) 0.1 %; Immature Granulocytes # (auto) 0.12 K/uL (0.00-0.02); Immature Granulocytes % (auto) 0.6 %; Lymphocytes # (auto) 0.52 K/uL (1.2-3.4); Lymphocytes % (auto) 2.6 %; Monocytes # (auto) 0.43 K/uL (0.11-0.59); Monocytes % (auto) 2.2 %; Neutrophils # (auto) 18.65 K/uL (1.4-6.5); Neutrophils % (auto) 94.5 %; Platelet Estimate Normal (Normal)
[2019-06-18 08:26] LABS: Prothrombin Time 39.8 Seconds (9.0-12.0)
--- NOTE | 2019-06-18 08:28 | XRay Report ---
XR chest 1V portable CLINICAL HISTORY: ongoing hypoxia COMPARISON STUDY: Chest CT June 14, 2019. Chest radiograph June 16, 2019 at 3:45 PM. FINDINGS: There is no pneumothorax. Endotracheal and nasogastric tubes have been removed. Lung volume s are mildly diminished. Small to moderate right and small left pleural effusion persist. Bilateral a irspace opacities and interstitial thickening have progressed. IMPRESSION: 1. Progression of bilateral airspace opacities and interstitial thickening which favor pneumonia alth ough pulmonary edema could appear similar. 2. Small to moderate right and small left pleural effusions. No pneumothorax. 3. Low lung volumes. Electronically signed by: Ronal Valle M.D. 06/18/2019 8:26 AM
[2019-06-18] MEDS ORDERED: FUROSEMIDE 40 MG/4 ML VIAL IV STA (08:33)
[2019-06-18] MEDS: methylPREDNISolone 80 MG in SYRINGE 0 ML IV SCH ×3 (08:47→22:12)
--- NOTE | 2019-06-18 08:49 | Pharmacy Report ---
Pharmacy Abx Initial Consult - Date of Service June 18, 2019 - Pharmacy Dosing Scope Date of Consult: 06/18/19 Consultation requested by: Dr. Irving Burroughs Pharmacy is consulted to initiate Vancomycin IV/PO dosing therapy, order appropriate labs and adjust drug dose/frequency. - Subjective The patient is a 83 year old M admitted on 06/14/19 13:21. - Objective Height: 5 ft 7 in Weight: 64.1 kg Vital Signs (Past 12hrs): Vital Signs Temp Pulse Pulse Pulse Resp BP Pulse Ox 06/18/19 07:49 100 H 24 85 L 06/18/19 06:01 99 H 43 H 118/62 82 L 06/18/19 05:21 96 H 34 H 91/63 L 83 L 06/18/19 05:00 96 H 28 H 80/55 L 85 L 06/18/19 04:22 36.4 C L 06/18/19 04:00 77 29 H 113/64 88 L 06/18/19 03:12 95 H 28 H 88 L 06/18/19 03:00 88 28 H 113/74 86 L 06/18/19 02:01 88 34 H 94/46 L 86 L 06/18/19 01:00 83 26 H 106/61 88 L 06/18/19 00:15 36.4 C L 06/18/19 00:00 77 23 96/62 L 87 L 06/17/19 23:00 90 28 H 91/63 L 87 L 06/17/19 22:57 87 28 H 89 L 06/17/19 22:00 97 H 31 H 85/60 L 86 L 06/17/19 21:00 79 33 H 91/60 L 89 L 06/17/19 20:46 95 H 32 H 88 L Lab Results (24hrs): Laboratory Tests (24 Hours) 06/18/19 06/18/19 06/17/19 04:38 04:38 11:08 WBC 19.73 H Neut # (Auto) 18.65 H Creatinine 1.47 H 1.59 H Est Cr Clr Drug Dosing 36.2 33.5 Micro Results: 06/14/19 13:11 Anaerobic Blood Culture - Final Blood - Risk Factors for Resistance * Hospitalization for 48 hours or more within the past 90 days * Antimicrobial use within the last 90 days - Assessment & Plan Assessment 83 year old M * Pt appears to be in KERRI * Blood cultures from 06/14 have NGTD * MRSA nasal swab from 06/16 negative Plan Vancomycin for treatment of pneumonia Vancomycin IV * Estimated PK Parameters: Vd 0.7 L/kg, Kvng 0.034 hr-1, t1/2 20 hr * Loading dose: 1500 mg (23.4 mg/kg) * Maintenance dose: 1000 mg IV (15 mg/kg) every 24 hours * Goal trough level for pneumonia : 15 to 20 mcg/mL * Trough level ordered for 06/20/19 @1730 Pt is also on Cefepime 2gm q12 hours and Levaquin 750mg iv q48 hours Pharmacy will continue to follow and will adjust dose/frequency as necessary. Thank you.
[2019-06-18 09:08] LABS: INR 4.3 (0.9-1.1)
[2019-06-18] MEDS: dilTIAZem HCl 125 MG in DEXTROSE 5% 100 ML IV SCH ×2 (09:19→22:55)
[2019-06-18] MEDS: CEFEPIME 2,000 MG in SYRINGE 7.5 ML IV SCH ×2 (09:20→22:12)
[2019-06-18] MEDS: IPRATROPIUM BROMIDE NEB SOLN 0.02% 2.5 ML VIAL NEB SCH ×2 (11:29→20:05)
[2019-06-18] MEDS: LORazepam 1 MG/2 ML VIAL IV PRN ×3 (11:49→21:34)
[2019-06-18] MEDS: LEVOFLOXACIN/D5W 750 MG/150 ML BAG IV SCH (11:53)
[2019-06-18] MEDS: ACETAMINOPHEN 1,000 MG/100 ML VIAL IV SCH ×2 (14:32→22:15)
[2019-06-18 15:00] LABS: BUN Creatinine Ratio 38.8 (10-20); Calcium 8.4 mg/dl (8.5-10.1); Creatinine Clr Calc Pharmacy 34.9 ml/min; Est GFR (African American) 50.3; Est GFR (Non-African American) 43.4; Potassium 3.7 mmol/L (3.5-5.1)
[2019-06-18] MEDS: VANCOMYCIN HCL 1,000 MG in SODIUM CHLORIDE 0.9% 250 ML IV SCH (17:53)
--- NOTE | 2019-06-18 17:53 | Hospitalist Progress Note ---
Date of Service June 18, 2019 Assessment & Plan (1) PNA (pneumonia): HAP/Acute Hypoxic Resp Failure -His whole disease course appears to have been a community-acquired pneumonia last week, with secondary overgrowth of a healthcare associated pneumonia. MRSA nares negative on multiple occasions, urine Legionella negative, therefore most likely his illness is being driven by a gram-negative pathogen. Initially he appeared fairly stable on cefepime, but then whenever he had a decline levofloxacin was added to double cover gram negatives by different mechanisms. -His white count is improving, he is afebrile, and his heart rates seem to be getting easier to control; however, unfortunately his hypoxia is worsening fairly significantly. -Having had multiple very candid and open discussions with the family, at this point they are all in clear agreement that he would be a DO NOT INTUBATE. He is currently on 100% high flow nasal cannula, he did worse on 100% nonrebreather mask, and given his pneumothorax/pneumomediastinum BiPAP does not seem to be a safe option. Unfortunately his oxygenation is slowly worsening through the day. He does not appear to be suffering with any dyspnea, and I agree with the family's assessment that he does not seem to be in significant pain or distress. We discussed multiple times through today my very open concern with his worsening hypoxia (that we are not able to remedy given the above limitations and modalities) he could suffer an anoxic injury in many ways. I discussed this bluntly in regards to an anoxic brain injury, as well as a worsening picture of a critical illness myopathy. I also described it as "I do harbor concerns that we could save him to a state that he would not want to be in"however, they are keenly aware of these concerns, but we are all in agreement that where he is at does not guarantee that those outcomes would occur. In this regard, because he does not appear to be suffering, and all are in agreement of the bad outcomes that could occur being an acceptable risk, the family prefers to continue with aggressive care. -I did discuss multiple times through today that with his worsening oxygenation, I do harbor concerns that his situation well and with a bad outcome. -Earlier in the day, we did discuss a return to comfort care, but right now for all of the above-noted reasons, as well as the fact that he is (while quite delirious) communicative with them, their desire to continue aggressive treatment is understandable. -Ethically given that he does not appear to be suffering, and that the consequences/outcomes (both good and bad) have been outlined and explained in detail, multiple times, to multiple family members, with a good expression of understanding, it appears reasonable to continue with her current plan. -Continue cefepime, continue Levaquin, continue supplemental oxygen as best as can be delivered, continue nebulizers to try to enhance pulmonary toilet, continue steroids -Empiric trial of furosemide (this morning with minimal response, will give an additional dose this evening) as it is impossible to tell if there could also be some superimposed pulmonary edema -See notes and discussions of 06/17 as well. Atrial fibrillation with RVR -Rate control is currently easier to affect, continue diltiazem and metoprolol. -ECHO: LV systolic fxn is normal. No regional wall motion abnormalities. EF 50- 55%. No significant valvular pathology HTN -Follow numbers, his blood pressures have actually been surprisingly acceptable KERRI -Relates to his overall status, giving empiric trial of furosemide as above, given that hypoxia is his greatest issue, but overall this most likely is due to being dry. Therefore if there is not a significant response to the next dose of Lasix, we will continue with maintenance fluids. Of note creatinine did improve some overnight Coagulopathy -Related to Coumadin, Coumadin is obviously a hold. INR down to 4.3 today. Continue to follow. No signs or symptoms of bleeding, therefore no indication to actively reverse with vitamin K. FEN/GI: NPOthis is of concern as well for a long-term myopathy risk, given that his oral intake has essentially been nothing for the last 2 days. If he seems to stabilize/head in the right direction with his oxygenation, we will definitely need to address nutrition aggressively. Right now however, I do not believe that he could tolerate an NG tube blocking part of his means for oxygenation, and with an active infection, IV nutrition seems to be more risk than benefit given the overall situation. DVT Prophylaxis: Anticoagulation with Coumadin CODE STATUS DO NOT RESUSCITATE after repeated discussions with the family today. Subjective Very little HPI or review of systems obtainable. Patient on exam earlier today would awaken to loud voice, and told me no to pain as well as no shortness of breath. He did have some grunting respirations, family noted that this would happen from time to time, but that if he sucked on a moistened sponge the grunting respirations would pass. They also note that he has been confused but conversational throughout the day. They note that he talked about a motorcycle ride in great detail, and generally will respond to them. They also note that he perked up significantly when granddaughters were in the room to visit him. They have been watching him closely, and do not believe he is suffering at all. Review of Systems Review of Systems: Unobtainable due to cognitive status Physical Exam Physical Exam: Patient examined multiple times throughout the day. In general he is awake laying in bed on high flow nasal cannula appearing in a mild degree of respiratory distress. He has some grunting with respirations at times and not with others. HEENT normocephalic atraumatic mucous membranes somewhat dry. Breathing mildly labored with accessory muscle use intercostally but not really any belly breathing. Lung exam somewhat difficult due to positioning and tachypnea, but seems fairly clear somewhat quiet base right more than base left. No wheezing. Abdomen soft nondistended may be mild epigastric tenderness no guarding/rebound/rigidity. Extremities show no cyanosis clubbing or edema. Skin is dry no rashes, no pallor, no icterus. Neuro shows no focal deficits. Mental status difficult to assess, but he does on multiple exams through the day responds to voice and answer one-word questions with questionable veracity. Results & Data Vital Signs (Past 12 Hours) Labs and chest x-ray noted Vital Signs Temp Pulse Pulse Resp BP Pulse Ox 06/18/19 16:09 98.1 F 93 H 36 H 113/60 82 L 06/18/19 15:40 96 H 28 H 85 L labs and chest x-ray noted 06/18/19 15:00 85 31 H 105/66 85 L 06/18/19 11:53 115 H 119/79 06/18/19 11:31 99 H 30 H 84 L 06/18/19 11:30 99 H 30 H 84 L 06/18/19 08:45 96 H 06/18/19 07:49 100 H 24 85 L 06/18/19 06:01 99 H 43 H 118/62 82 L PG Care Time/CCT Total # of Minutes Spent Total Time Spent with Patient: Total time spent is greater than 50% in coordination of care (as documented) at patient's floor/unit and/or counseling patient: Critical Care Time: Yes Total Critical Care Time: 50 Critical Care Time Critical Care Time: Yes Total Critical Care Time: 50 (1) PNA (pneumonia) Laterality: bilateral Lung location: lower lobe of lung Pneumonia type: due to unspecified organism Qualified Code(s): J18.1 - Lobar pneumonia, unspecified organism
[2019-06-18] MEDS ORDERED: FUROSEMIDE 40 MG in SYRINGE 0 ML IV SCH (18:15)
[2019-06-18] MEDS: MoRPHine SULFATE 2 MG/ML CARP IV PRN (21:37)
[2019-06-19] MEDS: IPRATROPIUM BROMIDE NEB SOLN 0.02% 2.5 ML VIAL NEB SCH ×3 (01:04→13:48)
[2019-06-19] MEDS: MoRPHine SULFATE 2 MG/ML CARP IV PRN ×4 (02:44→19:37)
[2019-06-19] MEDS: LORazepam 1 MG/2 ML VIAL IV PRN ×4 (02:45→19:37)
[2019-06-19] MEDS: METOPROLOL TARTRATE 1 MG/ML VIAL IV SCH ×6 (04:21→23:26)
[2019-06-19] MEDS: ACETAMINOPHEN 1,000 MG/100 ML VIAL IV SCH ×3 (05:51→23:24)
[2019-06-19 05:56] LABS: Hemoglobin 12.4 g/dL (14.0-18.0); Mean Corpuscular Hgb Conc 36.5 g/dL (32-36); Mean Corpuscular Volume 82.3 fL (80-100); Mean Platelet Volume 9.9 fL (7.4-10.4); Nucleated RBC # (auto) 0.04 K/uL (0-0); Nucleated RBC % (auto) 0.2 %; Platelet Count 201 K/uL (130-400); RDW Coefficient of Variation 13.4 % (11.5-14.5); RDW Standard Deviation 40.8 fL (36.4-46.3); Red Blood Count 4.13 M/uL (4.7-6.1); White Blood Count 25.43 K/uL (4.8-10.8)
[2019-06-19 06:13] LABS: Prothrombin Time 37.2 Seconds (9.0-12.0)
[2019-06-19 06:33] LABS: Basophils # (auto) 0.02 K/uL (0-0.2); Basophils % (auto) 0.1 %; Echinocytes 1+; Eosinophils # (auto) 0.01 K/uL (0-0.5); Immature Granulocytes # (auto) 0.21 K/uL (0.00-0.02); Immature Granulocytes % (auto) 0.8 %; Lymphocytes # (auto) 0.68 K/uL (1.2-3.4); Lymphocytes % (auto) 2.7 %; Monocytes # (auto) 0.97 K/uL (0.11-0.59); Monocytes % (auto) 3.8 %; Neutrophils # (auto) 23.54 K/uL (1.4-6.5); Neutrophils % (auto) 92.6 %
[2019-06-19 06:36] LABS: BUN Creatinine Ratio 39.3 (10-20); Calcium 8.5 mg/dl (8.5-10.1); Creatinine Clr Calc Pharmacy 30.6 ml/min; Est GFR (African American) 42.9; Potassium 3.8 mmol/L (3.5-5.1)
[2019-06-19] MEDS: LACTATED RINGER'S 1,000 ML IV SCH ×2 (08:07→19:40)
[2019-06-19] MEDS: methylPREDNISolone 80 MG in SYRINGE 0 ML IV SCH ×3 (08:13→19:41)
[2019-06-19] MEDS: CEFEPIME 2,000 MG in SYRINGE 7.5 ML IV SCH ×2 (10:37→21:48)
[2019-06-19] MEDS: dilTIAZem HCl 125 MG in DEXTROSE 5% 100 ML IV SCH (12:47)
[2019-06-19] MEDS ORDERED: IPRATROPIUM BROMIDE NEB SOLN 0.02% 2.5 ML VIAL NEB PRN (18:02)
[2019-06-19] MEDS: VANCOMYCIN HCL 1,000 MG in SODIUM CHLORIDE 0.9% 250 ML IV SCH (18:45)
--- NOTE | 2019-06-19 19:08 | Hospitalist Progress Note ---
Date of Service June 19, 2019 Assessment & Plan (1) PNA (pneumonia): HAP/Acute Hypoxic Resp Failure -His whole disease course appears to have been a community-acquired pneumonia last week, with secondary overgrowth of a healthcare associated pneumonia. MRSA nares negative on multiple occasions, urine Legionella negative, therefore most likely his illness is being driven by a gram-negative pathogen. Initially he appeared fairly stable on cefepime, but then whenever he had a decline levofloxacin was added to double cover gram negatives by different mechanisms. -White count went up some today, but no other clear indication to adjust antibiotics further. Continue cefepime and Levaquin -See yesterday's discussions, essentially these were reiterated. Most notably my concerns with his persistent hypoxia would be if he were to suffer any type of irreversible brain injury, or severe myopathy. Family is aware of these concerns, but notes that that is a risk they are certainly willing to accept in order to continue to attempt for a good outcome here. Given their rational understanding of the discussions, I agree with her decision to proceed with ongoing treatment. -Later today the reassessment was quite concerning, not so much because of his little lessening responsiveness (which easily could just be part of delirium) but more because of his much relaxed respirations in the face of hypoxia that should cause him to have ongoing tachypnea. Family aware. -Ethically given that he does not appear to be suffering, and that the consequences/outcomes (both good and bad) have been outlined and explained in detail, multiple times, to multiple family members, with a good expression of understanding, it appears reasonable to continue with her current plan. -Continue cefepime, continue Levaquin, continue Vanco, continue supplemental oxygen as best as can be delivered, continue attempts for pulmonary toilet, continue steroids -Empiric trial of furosemide done on 06/18 unfortunately affected no improvement -See notes and discussions of 06/18, and 06/17 as well. Atrial fibrillation with RVR -Rates have been controlled, continue diltiazem and metoprolol. -ECHO: LV systolic fxn is normal. No regional wall motion abnormalities. EF 50- 55%. No significant valvular pathology HTN -Follow numbers, his blood pressures have actually been surprisingly acceptable KERRI -Relates to his overall status, slight bump in creatinine appears to have related to empiric trial of furosemide. Given that he was not volume overloaded, we will utilize Coagulopathy -Related to Coumadin, Coumadin is obviously on hold. Continue to follow INR. No signs or symptoms of bleeding, therefore no indication to actively reverse with vitamin K. FEN/GI: Acute malnutritionthis is of concern for short-term clinical status as well for a long-term myopathy risk, given that his oral intake has essentially been nothing for the last 3 days. Today this was the main point of discussion moving forward with the family. We attempted to see how he did with a clear liquid diet through the day, and in the end he probably took in all of may be an ounce or 2 of oral consumption. Discussed with the family that this is becoming a very pressing issue. It appears to be fairly limited options. Discussed with family that conventionally in a similar situation and NG tube would be placed and tube feeds would be initiated. However, given his suboptimal oxygenation with high flow nasal cannula (and his pneumothorax/pneumomediastinum making BiPAP far riskier than the potential benefit) I would harbor grave concerns that blocking up some of his nostril with an NG tube would worsen his already tenuous oxygenation. An OG tube given that he is not intubated and sedated would likely be intolerable. Given all of this, despite the risks that come with it, TPN seems to be a better choice than continuing poor to no nutritional intake. We are in agreement of this, however given his potential worsening decline this afternoon, the family and I agreed that it would be wiser to follow his status for another 12 to 18 hours before placing a PICC line, because if he truly is starting to reach a terminal decline then putting him through placement of PICC line would be needless interventions/discomfort. DVT Prophylaxis: Anticoagulation with Coumadin CODE STATUS DO NOT RESUSCITATE Subjective Little meaningful HPI review of systems obtainable from patient. He does still open his eyes whenever I shout his ear, and will loosely answer in one-word with questionable veracity. He denies any shortness of breath or pain. Again history is basically limited to one word answers when I shout in his ear. This morning the family notes that he is looked about the same, mostly in a status quo, still able to communicate with them some, tried to get out of bed once. Does not appear to be suffering. Later on revisit, he is much more withdrawn staring more, and they are concerned that he is starting to decline. They still note no suffering, but their main concern is that he is communicating less. See assessment and plan for further details in discussions with family as it pertains to the course of treatment Review of Systems Review of Systems: Unobtainable due to cognitive status Physical Exam Physical Exam: This morning he is resting in bed mildly tachypneic no apparent suffering or distress. He awakens to loud voice and his urine responds with one-word answers of questionable veracity. HEENT normocephalic atraumatic mucous membranes may be slightly dry. Cardio irregular but rate controlled. Lungs sounding surprisingly clear without any notable rales rhonchi, ongoing mild accessory muscle use. abdomen soft nondistended nontender no masses organomegaly. Extremities no cyanosis clubbing or edema. No notable calf tenderness no cords. No focal neuro deficits. This afternoon he is staring more blankly. But whenever I do shout in his ear he still responds the same as above. His breathing appears much calmer with no accessory muscles, but this being in spite of his pulse ox is still being in the mid 80s. Otherwise exam about the same. Results & Data Vital Signs (Past 12 Hours) Vital Signs Temp Pulse Pulse Pulse Resp BP BP 06/19/19 18:00 78 24 06/19/19 17:51 77 97/68 L 06/19/19 16:00 76 06/19/19 15:48 96.6 F L 73 28 H 97/68 L 06/19/19 14:30 80 29 H 06/19/19 12:46 75 99/72 L 06/19/19 11:37 97.5 F L 74 36 H 06/19/19 11:04 81 31 H 06/19/19 08:08 87 109/60 06/19/19 08:00 72 06/19/19 07:43 79 30 H 06/19/19 07:42 77 30 H 06/19/19 07:08 97.3 F L 73 25 H BP Pulse Ox 06/19/19 18:00 83 L 06/19/19 17:51 06/19/19 16:00 06/19/19 15:48 84 L 06/19/19 14:30 87 L 06/19/19 12:46 06/19/19 11:37 99/72 L 88 L 08/25/19 11:04 86 L 06/19/19 08:08 06/19/19 08:00 06/19/19 07:43 87 L 06/19/19 07:42 87 L 06/19/19 07:08 92/61 L 87 L PG Care Time/CCT Total # of Minutes Spent Total Time Spent with Patient: Total time spent is greater than 50% in coordination of care (as documented) at patient's floor/unit and/or counseling patient: (1) PNA (pneumonia) Laterality: bilateral Lung location: lower lobe of lung Pneumonia type: due to unspecified organism Qualified Code(s): J18.1 - Lobar pneumonia, unspecified organism
[2019-06-20] MEDS: dilTIAZem HCl 125 MG in DEXTROSE 5% 100 ML IV SCH ×2 (00:54→12:15)
[2019-06-20] MEDS: METOPROLOL TARTRATE 1 MG/ML VIAL IV SCH ×6 (03:44→23:34)
[2019-06-20] MEDS: ACETAMINOPHEN 1,000 MG/100 ML VIAL IV SCH ×3 (05:51→21:39)
[2019-06-20 06:56] LABS: Prothrombin Time 54.4 Seconds (9.0-12.0)
[2019-06-20 07:12] LABS: Creatinine Clr Calc Pharmacy 29.3 ml/min; Est GFR (African American) 39.2; Est GFR (Non-African American) 33.8
[2019-06-20] MEDS: methylPREDNISolone 80 MG in SYRINGE 0 ML IV SCH ×3 (08:19→21:40)
[2019-06-20] MEDS: LACTATED RINGER'S 1,000 ML IV SCH ×2 (08:19→21:39)
[2019-06-20] MEDS ORDERED: CEFEPIME 2,000 MG in SYRINGE 7.5 ML IV SCH (10:00)
[2019-06-20] MEDS: LEVOFLOXACIN/D5W 750 MG/150 ML BAG IV SCH (11:03)
[2019-06-20] MEDS: CEFEPIME 2,000 MG in SYRINGE 7.5 ML IV SCH ×2 (11:03→21:40)
[2019-06-20] MEDS: MoRPHine SULFATE 2 MG/ML CARP IV PRN ×3 (12:24→23:35)
[2019-06-20] MEDS ORDERED: TPN/PPN CONSULT PHARMACY STA (13:40)
[2019-06-20 13:56] LABS: Nucleated RBC # (auto) 0.05 K/uL (0-0); Nucleated RBC % (auto) 0.3 %
[2019-06-20] MEDS ORDERED: PHYTONADIONE 5 MG in SODIUM CHLORIDE 0.9% 50 ML IV ONE (14:00)
[2019-06-20 14:36] LABS: Acanthocytes 1+; Basophils # (auto) 0.03 K/uL (0-0.2); Basophils % (auto) 0.1 %; Eosinophils # (auto) 0.01 K/uL (0-0.5); Hematocrit (blood only) 34.3 % (42-52); Hemoglobin 11.7 g/dL (14.0-18.0); Immature Granulocytes # (auto) 0.51 K/uL (0.00-0.02); Immature Granulocytes % (auto) 2.2 %; Lymphocytes # (auto) 0.66 K/uL (1.2-3.4); Lymphocytes % (auto) 2.9 %; Mean Corpuscular Hemoglobin 28.2 pg (25-34); Mean Corpuscular Hgb Conc 34.1 g/dL (32-36); Mean Corpuscular Volume 82.7 fL (80-100); Mean Platelet Volume 10.1 fL (7.4-10.4); Monocytes # (auto) 0.98 K/uL (0.11-0.59); Monocytes % (auto) 4.3 %; Neutrophils # (auto) 20.78 K/uL (1.4-6.5); Neutrophils % (auto) 90.5 %; Platelet Count 97 K/uL (130-400); Platelet Estimate Decreased (Normal); RDW Coefficient of Variation 13.8 % (11.5-14.5); RDW Standard Deviation 41.8 fL (36.4-46.3); Red Blood Count 4.15 M/uL (4.7-6.1); White Blood Count 22.97 K/uL (4.8-10.8)
--- NOTE | 2019-06-20 14:59 | XRay Report ---
XR chest 1V portable HISTORY: 83 years-old Male picc placement status post placement of a left-sided PICC COMPARISON: Chest radiograph 06/18/2019 TECHNIQUE: Portable AP view of the chest FINDINGS: Left-sided PICC is noted with distal tip in the expected location of the right atrium. Calcified plaq ue of the thoracic aortic arch. No pneumothorax. Unchanged bilateral pleural effusions with bilateral mixed interstitial and alveolar opacities, right greater than left with mildly improved from compari son study. Degenerative changes of the shoulders and spine. IMPRESSION: 1. Status post placement of a left-sided PICC with distal tip terminating in the expected location of the right atrium. No postprocedural pneumothorax. 2. Mildly improved aeration of the bilateral lungs with persistent bilateral mixed interstitial and a lveolar opacities, right greater than left. 3. Unchanged pleural effusions. 4. Cardiomegaly. The above report was generated using voice recognition software. It may contain grammatical, syntax o r spelling errors. Electronically signed by: Andrea Hackett M.D. 06/20/2019 2:58 PM
[2019-06-20 15:10] LABS: BUN Creatinine Ratio 52.7 (10-20); Calcium 8.3 mg/dl (8.5-10.1); Creatinine Clr Calc Pharmacy 30.6 ml/min; Est GFR (African American) 41.4; Est GFR (Non-African American) 35.7; Potassium 3.9 mmol/L (3.5-5.1)
[2019-06-20 15:13] LABS: Albumin Globulin Ratio 0.5 (0.9-2); Bilirubin,Total 2.2 mg/dl (0.2-1); Globulin 3.9 gm/dl (2.5-4.0); Total Protein 5.9 gm/dl (6.4-8.2)
[2019-06-20 16:29] LABS: Prothrombin Time 43.9 Seconds (9.0-12.0)
[2019-06-20 16:40] LABS: INR 4.8 (0.9-1.1)
--- NOTE | 2019-06-20 16:43 | XRay Report ---
XR chest 1V portable CLINICAL HISTORY: PICC PLACEMENT tube position COMPARISON STUDY: 06/20/2019 FINDINGS: PICC catheter placed from a left-sided approach with the tip in the superior vena cava. Thi s is pulled back slightly from the prior study. Unchanging bilateral parenchymal infiltrative change. No evidence for pneumothorax. IMPRESSION: PICC catheter in superior vena cava. No evidence for pneumothorax. Unchanging bilateral parenchymal infiltrative change The above report was generated using voice recognition software. It may contain grammatical, syntax or spelling errors. Electronically signed by: Nirmal Billingsley M.D. 06/20/2019 4:42 PM
[2019-06-20] MEDS ORDERED: VANCOMYCIN TROUGH ONE (17:30)
--- NOTE | 2019-06-20 17:39 | Family Medicine Progress Note ---
Date of Service June 20, 2019 Assessment & Plan (1) PNA (pneumonia): 83 yo M with PMH Afib, HTN readmitted after recent hospitalization for PNA (06/03-06/07) and d/c on Augmentin. Re-presented with ongoing fatigue and SOB found to have increased opacities at the R lung base. Later in admission, need for mech vent due to ongoing SOB not responsive to BiPAP. Pt now on HFNC with family deciding to pursue continued tx moving forward. PICC to be placed 06/20 for TPN feeds. Acute Hypoxic Resp Failure secondary to HCP -currently on high flow o2, satting high 70s-80s. -s/p extubation. extubation for poor prognosis. Since continued to be stable from cardiac standpoint, now on high flow O2. Encephalopathy - sec to respiratory failure. - More responsive today. - Will get swallow eval and start feeding once more alert. Get PICC line in the meantime for TPN. HCP -CTA: Extensive bilateral consolidation, greater within the right lung. The findings favor multifocal pneumonia. Additionally, small, partially loculated right pleural effusion -Cont with IV cefepime. Given white count and no improvement in breathing status, added Levaquin for added double gram neg coverage along with atypical coverage -->urine legionella neg -IV solucortef 50 mg q6h -On HFNC at present -Blood cx NGTD -MRSA neg- will stop vanc -for restlessless/agitation: IV Tylenol Atrial fibrillation with RVR -currently rate controlled -Continue cardizem gtt. If not rate controlled <110 then Lopressor 2.5 mg q4h prn added . Can consider dig loading additionally if required -Will transition to home Cardizem 360 mg p.o. moving forward once able -ECHO: LV systolic fxn is normal. No regional wall motion abnormalities. EF 50- 55%. No significant valvular pathology -warfarin held; not currently on heparin; however INR>4 consistently -s/p Vit K administration for INR of 6 on 06/20 HTN -holding home lisinopril 5 mg -BPs within normal limit FEN/GI: starting TPN feeds. IVF DVT Prophylaxis: currently anticoagulated. DNR/DNI Disposition: PCU care due to respiratory status (2) Acute respiratory failure with hypoxia: (3) Encephalopathy: (4) Atrial fibrillation: Supervising Physician Co-Signing Physician Notes Resident Physician Supervision Note: I independently interviewed and examined the patient and verified the crockett history and physical, reviewed labs and image studies, discussed the case with the resident Dr. Dempsey and agree with the findings and care plan. Subjective Pt was resting in bed comfortably. Family at bedside and declined TPN this AM. However, after some new responsiveness, family is asking for the TPN and a withdrawal of comfort measures. Review of Systems Review of Systems: Unobtainable due to cognitive status Physical Exam Physical Exam: General: Laying in bed. Eyes clsoed. HEENT: NC/AT. Chest: Nontender to palpation. CV: RRR, Normal s1, s2. Resp: Breath sounds clear bilaterally on front, no increased effort of breathing. Abdomen: Soft, nondistended. No guarding. Extremities: No edema. Results & Data Vital Signs (Past 12 Hours) Vital Signs Temp Pulse Pulse Resp BP BP Pulse Ox 06/20/19 16:34 85 123/90 06/20/19 15:30 76 28 H 85 L 06/20/19 15:10 35.8 C L 77 33 H 123/90 83 L 06/20/19 12:15 83 119/82 06/20/19 12:10 36.4 C L 88 38 H 119/82 78 L 06/20/19 12:00 83 06/20/19 09:44 71 26 H 86 L 06/20/19 08:22 86 109/62 Laboratory Results Laboratory Results - last 24 hr 06/20/19 06/20/19 06/20/19 06:18 06:18 13:38 WBC 22.97 H RBC 4.15 L Hgb 11.7 L Hct 34.3 L MCV 82.7 MCH 28.2 MCHC 34.1 RDW Std Deviation 41.8 RDW Coeff of Hermel[place] 13.8 Plt Count 97 L D MPV 10.1 Immature Gran % (Auto) 2.2 Neut % (Auto) 90.5 Lymph % (Auto) 2.9 [place] % (Auto) 4.3 Eos % (Auto) 0.0 Baso % (Auto) 0.1 Immature Gran # (Auto) 0.51 H Neut # (Auto) 20.78 H Lymph # (Auto) 0.66 L [place] # (Auto) 0.98 H Eos # (Auto) 0.01 Baso # (Auto) 0.03 Absolute Nucleated RBC 0.05 H Nucleated RBC % (auto) 0.3 Platelet Estimate Decreased L Acanthocytes (Spur) 1+ PT 54.4 H INR 6.0 H* Sodium Potassium Chloride Carbon Dioxide Anion Gap BUN Creatinine 1.82 H Est Cr Clr Drug Dosing 29.3 Est GFR ( Amer) 39.2 Est GFR (Non-Af Amer) 33.8 BUN/Creatinine Ratio Glucose Calcium Total Bilirubin AST ALT Alkaline Phosphatase Total Protein Albumin Globulin Albumin/Globulin Ratio 06/20/19 06/20/19 14:41 15:55 WBC RBC Hgb Hct MCV MCH MCHC RDW Std Deviation RDW Coeff of Hermelinda Plt Count MPV Immature Gran % (Auto) Neut % (Auto) Lymph % (Auto) [place] % (Auto) Eos % (Auto) Baso % (Auto) Immature Gran # (Auto) Neut # (Auto) Lymph # (Auto) [place] # (Auto) Eos # (Auto) Baso # (Auto) Absolute Nucleated RBC Nucleated RBC % (auto) Platelet Estimate Acanthocytes (Spur) PT 43.9 H INR 4.8 H Sodium 144 Potassium 3.9 Chloride 112 H Carbon Dioxide 26 Anion Gap 6.0 BUN 92 H Creatinine 1.74 H Est Cr Clr Drug Dosing 30.6 Est GFR ( Amer) 41.4 Est GFR (Non-Af Amer) 35.7 BUN/Creatinine Ratio 52.7 H Glucose 139 H Calcium 8.3 L Total Bilirubin 2.2 H AST 53 H ALT 66 Alkaline Phosphatase 170 H Total Protein 5.9 L Albumin 2.0 L Globulin 3.9 Albumin/Globulin Ratio 0.5 L Medications Administered Home Medications lisinopril 5 mg PO DAILY 06/03/19 [History Confirmed 06/03/19] omeprazole 20 mg PO DAILY 06/03/19 [History Confirmed 06/03/19] tamsulosin 0.4 mg PO DAILY 06/03/19 [History Confirmed 06/03/19] warfarin 4 mg PO UD 06/03/19 [History Confirmed 06/03/19] diltiazem HCl 360 mg PO QAM #30 cap 06/07/19 [Rx] Active Medications Heparin Sodium (Beef Lung) (Heparin Sod 10 Unit/Ml Flush) 5 ml FLUSH PRN PRN PRN Reason: Flush Stop: 07/16/19 22:53 Lorazepam (Ativan) 1 mg in 2 mls @ 2 mls/min IV Q2H PRN PRN Reason: Agitation Stop: 07/17/19 00:06 Last Admin: 06/19/19 19:37 Dose: 2 mls/min Documented by: Cefepime HCl 2,000 mg/ Syringe 20 mls @ 5.5 mls/min IV Q12H [facility]; Protocol Stop: 06/24/19 09:59 Last Admin: 06/20/19 11:03 Dose: 5.5 mls/min Documented by: Levofloxacin/Dextrose (Levaquin/D5w) 750 mg in 150 mls @ 100 mls/hr IV Q48H [facility]; Protocol Stop: 06/25/19 10:59 Last Infusion: 06/20/19 12:32 Dose: Infused Documented by: Diltiazem HCl 125 mg/ Dextrose 125 mls @ 10 mls/hr IV .[id number] [facility]; Protocol Stop: 07/17/19 11:59 Last Admin: 06/20/19 12:15 Dose: 10 mg/hr, 10 mls/hr Documented by: Methylprednisolone 80 mg/ (Syringe) 1.28 mls @ 1.5 mls/min IV TID [facility] Stop: 07/18/19 08:59 Last Admin: 06/20/19 14:54 Dose: 1.5 mls/min Documented by: Vancomycin HCl 1,000 mg/ (Sodium Chloride) 270 mls @ 125 mls/hr IV Q24H [facility] Stop: 06/25/19 17:59 Last Infusion: 06/19/19 21:24 Dose: Infused Documented by: Acetaminophen (Ofirmev) 1,000 mg in 100 mls @ 400 mls/hr IV Q8H [facility] Stop: 07/18/19 14:29 Last Infusion: 06/20/19 15:10 Dose: Infused Documented by: Lactated Ringer's (Lr) 1,000 mls @ 80 mls/hr IV .[id number] [facility] Stop: 07/19/19 07:14 Last Admin: 06/20/19 08:19 Dose: 80 mls/hr Documented by: Ipratropium [place] (Atrovent 0.02% 0.5mg/2.5ml) 0.5 mg NEB Q6R PRN PRN Reason: Shortness Of Breath Or Wheezing Stop: 07/18/19 11:59 Metoprolol Tartrate (Lopressor) 5 mg IV Q4 [facility] Stop: 07/17/19 19:29 Last Admin: 06/20/19 16:34 Dose: 5 mg Documented by: Miscellaneous Information (Consult) 1 ea N/A UD PRN PRN Reason: Consult Stop: 07/17/19 22:52 Miscellaneous Information (Pharmacy Tpn/Ppn Consult Active) 1 ea N/A UD PRN PRN Reason: Consult Stop: 07/21/19 15:59 Morphine Sulfate (Morphine Sulfate) 1 mg IV Q4 PRN PRN Reason: severe dyspnea Stop: 07/02/19 14:05 Last Admin: 06/20/19 12:24 Dose: 1 mg Documented by: Ondansetron HCl (Zofran) 4 mg IV Q4H PRN PRN Reason: Nausea And Vomiting Stop: 07/14/19 13:23 Warfarin Sodium (Coumadin) 4 mg PO DAILY@1600 [facility]ARRI Stop: 07/15/19 15:59 Last Admin: 06/15/19 16:21 Dose: 4 mg Documented by: PG Care Time/CCT Total # of Minutes Spent Total Time Spent with Patient: Total time spent is greater than 50% in coordination of care (as documented) at patient's floor/unit and/or counseling patient: (1) PNA (pneumonia) Laterality: bilateral Lung location: lower lobe of lung Pneumonia type: due to unspecified organism Qualified Code(s): J18.1 - Lobar pneumonia, unspecified organism
[2019-06-21] MEDS: dilTIAZem HCl 125 MG in DEXTROSE 5% 100 ML IV SCH (01:11)
[2019-06-21] MEDS: LORazepam 1 MG/2 ML VIAL IV PRN ×3 (02:08→11:47)
[2019-06-21] MEDS: METOPROLOL TARTRATE 1 MG/ML VIAL IV SCH ×4 (03:36→15:26)
[2019-06-21] MEDS: MoRPHine SULFATE 2 MG/ML CARP IV PRN ×3 (03:36→07:42)
[2019-06-21] MEDS: ACETAMINOPHEN 1,000 MG/100 ML VIAL IV SCH ×2 (05:48→15:26)
[2019-06-21 06:18] LABS: Hematocrit (blood only) 33.1 % (42-52); Hemoglobin 11.7 g/dL (14.0-18.0); Mean Corpuscular Hemoglobin 29.2 pg (25-34); Mean Corpuscular Hgb Conc 35.3 g/dL (32-36); Mean Corpuscular Volume 82.5 fL (80-100); Nucleated RBC # (auto) 0.19 K/uL (0-0); Nucleated RBC % (auto) 0.7 %; RDW Standard Deviation 42.3 fL (36.4-46.3); Red Blood Count 4.01 M/uL (4.7-6.1); White Blood Count 26.86 K/uL (4.8-10.8)
[2019-06-21 06:19] LABS: INR 1.7 (0.9-1.1); Prothrombin Time 17.2 Seconds (9.0-12.0)
[2019-06-21 06:24] LABS: Mean Platelet Volume 10.5 fL (7.4-10.4); Platelet Count 71 K/uL (130-400)
[2019-06-21 06:42] LABS: Basophils # (auto) 0.05 K/uL (0-0.2); Basophils % (auto) 0.2 %; Immature Granulocytes # (auto) 1.33 K/uL (0.00-0.02); Lymphocytes # (auto) 0.71 K/uL (1.2-3.4); Lymphocytes % (auto) 2.6 %; Monocytes # (auto) 1.05 K/uL (0.11-0.59); Monocytes % (auto) 3.9 %; Neutrophils # (auto) 23.72 K/uL (1.4-6.5); Neutrophils % (auto) 88.3 %
[2019-06-21 06:43] LABS: Albumin Level 2.1 gm/dl (3.4-5.0); BUN Creatinine Ratio 56.9 (10-20); Creatinine Clr Calc Pharmacy 31.7 ml/min; Est GFR (African American) 43.2; Est GFR (Non-African American) 37.3; Magnesium 2.8 mg/dl (1.8-2.4); Potassium 3.9 mmol/L (3.5-5.1)
[2019-06-21 06:49] LABS: Albumin Globulin Ratio 0.6 (0.9-2); Bilirubin,Total 3.5 mg/dl (0.2-1); Globulin 3.7 gm/dl (2.5-4.0); Phosphorus 3.6 mg/dl (2.5-4.9); Total Protein 5.8 gm/dl (6.4-8.2)
[2019-06-21] MEDS ORDERED: THIAMINE HCL 100 MG in SYRINGE 9 ML IV ONE (07:30)
[2019-06-21] MEDS: methylPREDNISolone 80 MG in SYRINGE 0 ML IV SCH (07:42)
[2019-06-21] MEDS ORDERED: POTASSIUM CHLORIDE 10 MEQ in D5W AND NSS 1,000 ML IV SCH (07:45)
[2019-06-21] MEDS: CEFEPIME 2,000 MG in SYRINGE 7.5 ML IV SCH (10:10)
[2019-06-21] MEDS ORDERED: MoRPHine SULFATE 2 MG/ML CARP IV STA ×2 (12:53→13:47)
[2019-06-21] MEDS ORDERED: MoRPHine SULFATE 10 MG/ML CARP/VIAL ONE (12:56)
[2019-06-21] MEDS ORDERED: MoRPHine SULF/NSS 250 MG/250 ML BTL IV PRN (13:05)
[2019-06-21] MEDS ORDERED: MoRPHine SULFATE 10 MG/ML CARP/VIAL IV STA (13:47)
[2019-06-21] MEDS ORDERED: DEXTROSE 10% 1,000 ML IV SCH (16:00)
[2019-06-21] MEDS ORDERED: CUSTOM CENTRAL PN IV SCH (16:00)
[2019-06-21] MEDS ORDERED: TPN/PPN CONSULT PHARMACY PRN (16:00)
--- NOTE | 2019-06-21 16:28 | Death Summary ---
Date of Service June 21, 2019 Pronouncement Note Date and Time of Date of : 06/21/19 Time of : 15:50 PCOD Preliminary cause of : Acute respiratory failure Contributing Factors (1) PNA (pneumonia): (2) Acute respiratory failure with hypoxia: Additional Data Confirmation of : no pulse, no respirations, no heart sounds and pupils fixed and dilated Family: at bedside (had left by the time of my examination) Attending/PCP notified?: Yes Attending physician: Yesi Tavarez MD Was code activated?: No Autopsy requested?: No
--- NOTE | 2019-06-21 18:25 | Discharge Summary ---
Date of Service June 21, 2019 Admission HPI Per Admitting Provider This is an 83 yo M with PMHx of afib on coumadin, HTN, hx of TBI, sleep apnea, and recent hospitalization for pneumonia where he was admitted to [facility] from 06/03/19-06/07/19 for pneumonia and treated with Augmentin upon discharge. He reports that since leaving the hospital he has not felt near back to baseline. He reports feeling weak and tired. He has steadily developed shortness of breath over the past week. Today he was scheduled for a routine follow up with his PCP, Dr. Fang, who upon seeing the patient in his office, personally drove him to the ER for treatment. The patient denies fever, chills or sweats. He is requiring an oximask at 9L where typically does not require any supplemental O2. He denies chest pain, tightness or heaviness. He denies other sick contacts. He states he has been taking the Augmentin since discharge last time and that today was the last scheduled day for abx. WBC elevated 11.8, lactate is 2.5, CXR appears worse compared to previous visit with increased oppacities at the R base and with pulmonary edema throughout. He is tachycardic with HR = 102. RR= 29 while on oximask. Admission Exam Per Admitting Provider General: awake, alert, no apparent distress Head: Normocephalic, atraumatic ENT: PERRL, EOMI, no pharyngeal exudate, mucous membranes moist Chest: + On 9 L via oximask, + coarse breath sounds, diminished to nearly absent in the RLL, + crackles Cardiac: irregularly irregular + tachy, no murmur, no JVD, normal peripheral pulses, good capillary refill Abdominal: NABS x 4 quadrants, soft, nontender to palpation, no rebound, guarding or tenderness Extremities: Normal inspection, no peripheral edema or erythema, calfs nontender to palpation Psych: Normal mood and affect Neuro: AAO x 3, strength intact bilaterally and related 5/5, no motor deficits, speech is clear, no peripheral sensory deficits Principal Diagnosis Acute hypoxic respiratory failure Discharge Exam General: Laying in bed. Eyes closed. HEENT: NC/AT. Chest: Nontender to palpation. CV: RRR, Normal s1, s2. Resp: Breath sounds clear bilaterally on front, no increased effort of breathing. Abdomen: Soft, nondistended. No guarding. Extremities: No edema. Discharge Data Allergies Allergy/AdvReac Type Severity Reaction Status Date / Time codeine Allergy Unknown UNKNOWN Verified 06/03/19 17:36 Consultations 06/14/19 13:22 Consult Case Management - Discharge Planning Routine 06/14/19 13:24 ED Decision to Admit Stat 06/14/19 16:38 Consult Pulmonology Routine 06/16/19 10:48 Consult Case Management - Discharge Planning Routine Ordered Studies 06/14/19 12:56 CT angio chest PE protocol Stat 06/16/19 15:00 US point of care ultrasound Routine Hospital Course (1) PNA (pneumonia): 83 yo M with PMH Afib, HTN readmitted after recent hospitalization for PNA (06/03-06/07) and d/c on Augmentin. Re-presented with ongoing fatigue and SOB found to have increased opacities at the R lung base. Later in admission, need for mech vent due to ongoing SOB not responsive to BiPAP. Pt was on high flow oxygen at the end. Admitted on Jun 14 and of jun 21 2019. Acute Hypoxic Resp Failure -Extensive multilobar pneumonia -CTA: Extensive bilateral consolidation, greater within the right lung. The findings favor multifocal pneumonia. Additionally, small, partially loculated right pleural effusion -Started on board spectrum IV antibiotics. Kept on Vent and later extubated considering poor overall prognosis but had extended post extubation periods and so was later put on high flow O2 but he continued to stay hypoxic through the whole periods. After discussing extensively with family - He was finally switched to comfort care an hour before he while his pulse ox on high flow was down in 50s. (2) Acute respiratory failure with hypoxia: Total Time Total Time Spent Total Time Spent (In Minutes): 60 Discharge Plan Discharge Items Patient Disposition: Reason For Visit: afib with rvr Follow-up/Referrals: Jose C Velasco MD [Primary Care Provider] - Admission Data Admit Date/Time: 06/14/19 13:21 Attending Provider: Yesi Tavarez Admit Provider: Gerald Rodríguez Primary Care Provider: Jose C Velasco Other Providers: Dorcas Cheatham Vyacheslav ; Gerald Rodríguez Service: Intensive Care Unit Other DC Date/Time DO NOT enter until pt leaves facility: 06/21/19 20:42 Supervising Physician Co-Signing Physician Notes Resident Physician Supervision Note: I independently interviewed and examined the patient and verified the crockett history and physical, reviewed labs and image studies, discussed the case with the resident Dr. Dempsey and agree with the findings and care plan.
--- NOTE | 2019-06-23 11:00 | Coding Query ---
SEPSIS To promote full compliance with coding requirements relating to patient care, physician participation is requested in all cases of soa engineer uncertainty. Please assist us with the question(s) below: In responding to this query, please exercise your independent professional judgement. The fact that a question is asked does not imply that any particular answer is desired or expected. We appreciate your clarification on this issue. The medical record reflects the following clinical findings: Patient adm with acute resp failure/hypoxia- gram negative pneumonia ...subsequently intubated /vent . Documentation states cardiogenic/septic shock. Please check the diagnosis you treated, if relevant. Thank you ! CYNTHIA Johnson CCS ____ ( )Bacteremia (Nonspecific laboratory finding of bacteria in the blood) Specify Organism ( ) Present on Admission ( ) Not present on admission ( ) Unable to clinically determine ( ) Septicemia (Systemic disease associated with the presence of pathogenic microorganisms in the blood): Specify Organism ( ) Present on Admission ( ) Not present on admission ( ) Unable to clinically determine ( x) Sepsis Specify Organism Specify Associated Condition/Diagnosis ( x) Present on Admission ( ) Not present on admission ( ) Unable to clinically determine ( ) Severe Sepsis (Sepsis associated with acute organ dysfunction) Specify Organism Specify Associated Condition/Diagnosis ( ) Present on Admission ( ) Not present on admission ( ) Unable to clinically determine ( ) Septic Shock (Severe sepsis with acute circulatory failure, unexplained by other causes) ( ) Present on Admission ( ) Not present on admission ( ) Unable to clinically determine ( ) Other, patient has: MTDD
== END 2019-06-21 20:42 | disposition expired | DRG 871 ==
LOC: ED 12:17 → 2E 13:21 → SUATTDRO 13:21 → 2E 14:25 → 1E 06-16 09:53 → 2E 06-18 19:54